=== PATIENT | female | born 1945 | race Caucasian/White ===

== ENCOUNTER → 2017-08-12 | Outpatient (CLI) | payer MEDICARE, BC ==
--- NOTE | 2017-08-12 15:33 | US ---
EXAMINATION TYPE: US kidneys/renal and bladder DATE OF EXAM: 08/12/2017 COMPARISON: NONE CLINICAL HISTORY: N13.39 HYDRONEPHROSIS. Lower abdominal pain EXAM MEASUREMENTS: Right Kidney: 10.0 x 4.1 x 4.7 cm Left Kidney: 10.4 x 4.2 x cm *Technical limitations due to large amount of overlying bowel content Right Kidney: cystic area upper pole = 2.1 x 2.0 x 2.2cm Left Kidney: cystic area upper pole = 1.4 x 1.1 x 1.9cm Bladder: not fully distended Bilateral Jets seen: no There is no evidence for hydronephrosis at this point in time. No nephrolithiasis is seen. The urina ry bladder is anechoic. Bilateral ureteral jets are seen. IMPRESSION: 1. No evidence of hydronephrosis or nephrolithiasis. 2. Bilateral renal cysts.
== END | disposition home or self-care (01) ==
LOC: RADUSWWP 14:29
PROVIDERS: ATTEND Internal Medicine
DX: N28.1 Cyst of kidney, acquired (principal)
CPT/HCPCS: 76770

== ENCOUNTER 2020-05-16 18:55 | Inpatient (IN) | payer MEDICARE, BC ==
[2020-05-16] MEDS ORDERED: SODIUM CHLORIDE 0.9% 1,000 ML IV STA (19:50)
[2020-05-16] MEDS ORDERED: ONDANSETRON 4 MG/2 ML VIAL IVP STA (19:50)
--- NOTE | 2020-05-16 20:02 | ED ---
General Adult HPI <Satish Marrero - Last Filed: 05/16/20 21:22> - General Source: patient, EMS, RN notes reviewed Mode of arrival: EMS <Sree Harris - Last Filed: 05/16/20 21:25> - General Chief complaint: Weakness Stated complaint: Nausea Time Seen by Provider: 05/16/20 19:24 - History of Present Illness Initial comments: 75-year-old female with a past medical history of Parkinson's, anxiety disorder, hypertension, presents to the emergency department for a chief complaint of weakness. According to patient's cousin patient has not been eating or drinking much. States that she saw her last week and she was complaining of nausea. Patient reports she has had this for a few weeks now. She denies vomiting. She does states she is not able to eat or drink much because of the nausea. Patient reports that over quarantine she became weaker and weaker as she was not doing her normal activities or seeing people. She denies chest pain or shortness of breath. Denies any recent falls. Denies any associated abdominal pain. Denies diarrhea, states she has not had a bowel movement in about a week.Patient has no other complaints at this time including shortness of breath, chest pain, headache, or visual changes. (Sree Harris) - Related Data Home Medications Medication Instructions Recorded Confirmed Omeprazole [PriLOSEC] 20 mg PO DAILY 10/28/15 05/16/20 Atenolol 25 mg PO DAILY 05/16/20 05/16/20 Carbidopa-Levodopa 25-100 mg 2 tab PO TID 05/16/20 05/16/20 [Sinemet 25-100 mg] L.acidoph,Paracasei, B.lactis 1 cap PO DAILY 05/16/20 05/16/20 [Probiotic] LORazepam [Ativan] 0.5 mg PO BID PRN 05/16/20 05/16/20 Ondansetron HCl [Zofran] 4 mg PO Q6H PRN 05/16/20 05/16/20 Triamterene-Hctz 37.5-25Mg 1 tab PO DAILY 05/16/20 05/16/20 [Maxzide 37.5-25] rOPINIRole HCL [Requip] 2 mg PO TID 05/16/20 05/16/20 Previous Rx's Medication Instructions Recorded Amantadine HCl [Symmetrel] 100 mg PO BID cap 11/01/15 Allergies Allergy/AdvReac Type Severity Reaction Status Date / Time No Known Allergies Allergy Verified 05/16/20 20:54 Review of Systems ROS Other: All systems not noted in ROS Statement are negative. <Satish Marrero - Last Filed: 05/16/20 21:22> ROS Other: All systems not noted in ROS Statement are negative. <Sree Harris - Last Filed: 05/16/20 21:25> ROS Statement: Those systems with pertinent positive or pertinent negative responses have been documented in the HPI. Past Medical History Past Medical History: GERD/Reflux, Hypertension Additional Past Medical History / Comment(s): Parkinson's disease, essential tremors, generalized anxiety disorder. History of Any Multi-Drug Resistant Organisms: None Reported Past Surgical History: Cholecystectomy Additional Past Surgical History / Comment(s): colonoscopy, tubes tied Past Anesthesia/Blood Transfusion Reactions: No Reported Reaction Past Psychological History: Anxiety, Depression, Panic Disorder Smoking Status: Former smoker Past Alcohol Use History: None Reported Past Drug Use History: None Reported - Past Family History Mother Additional Family Medical History / Comment(s): during rh incompatibility Father Family Medical History: CVA/TIA <Sree Harris - Last Filed: 05/16/20 21:25> General Exam General appearance: alert, in no apparent distress Head exam: Present: atraumatic, normocephalic, normal inspection Eye exam: Present: normal appearance, PERRL, EOMI. Absent: scleral icterus, conjunctival injection, periorbital swelling ENT exam: Present: normal exam, mucous membranes moist Neck exam: Present: normal inspection, full ROM. Absent: tenderness, meningismus, lymphadenopathy Respiratory exam: Present: normal lung sounds bilaterally. Absent: respiratory distress, wheezes, rales, rhonchi, stridor Cardiovascular Exam: Present: regular rate, normal rhythm, normal heart sounds. Absent: systolic murmur, diastolic murmur, rubs, gallop, clicks GI/Abdominal exam: Present: soft, normal bowel sounds. Absent: distended, tenderness, guarding, rebound, rigid Neurological exam: Present: alert <Sree Harris - Last Filed: 05/16/20 21:25> Course <Satish Marrero - Last Filed: 05/16/20 21:22> Vital Signs 05/16/20 19:23 Temperature 98 F Pulse Rate 54 L Respiratory 18 Rate Blood Pressure 147/80 O2 Sat by Pulse 3 L Oximetry - Reevaluation(s) Reevaluation #1: 05/16/20 21:22 PA supervision: I personally evaluate this patient the patient presents with decrease oral intake for past several weeks she was found have acute renal failure. Patient will be admitted in addition his hyponatremia and anorexia. I do agree with the assessment and plan (Satish Marrero) Medical Decision Making - Lab Data Result diagrams: 05/16/20 20:19 05/16/20 20:19 <Satish Marrero - Last Filed: 05/16/20 21:22> - Lab Data Result diagrams: 05/16/20 20:19 05/16/20 20:19 <Sree Harris - Last Filed: 05/16/20 21:25> - Medical Decision Making Vitals are stable. CBC is unremarkable CMP does show hyponatremia with associated acute renal failure. Creatinine 2.42. Patient was given a liter of fluids. Patient will be gently rehydrated given hyponatremia. She does not have any abdominal pain or abdominal tenderness. Case was discussed with Ryan from the , patient will be admitted and nephrology will be consulted. Urinalysis is pending. (Sree Harris) - Lab Data Lab Results 05/16/20 05/16/20 05/16/20 Range/Units 20:19 20:19 20:19 WBC 6.3 (3.8-10.6) k/uL RBC 4.81 (3.80-5.40) m/uL Hgb 14.1 (11.4-16.0) gm/dL Hct 40.8 (34.0-46.0) % MCV 84.8 (80.0-100.0) fL MCH 29.4 (25.0-35.0) pg MCHC 34.7 (31.0-37.0) g/dL RDW 12.7 (11.5-15.5) % Plt Count 228 (150-450) k/uL Neutrophils % 59 % Lymphocytes % 30 % Monocytes % 8 % Eosinophils % 1 % Basophils % 0 % Neutrophils # 3.7 (1.3-7.7) k/uL Lymphocytes # 1.9 (1.0-4.8) k/uL Monocytes # 0.5 (0-1.0) k/uL Eosinophils # 0.1 (0-0.7) k/uL Basophils # 0.0 (0-0.2) k/uL PT 10.9 (9.0-12.0) sec INR 1.1 (<1.2) APTT 24.8 (22.0-30.0) sec Sodium 126 L (137-145) mmol/L Potassium 3.4 L (3.5-5.1) mmol/L Chloride 90 L (98-107) mmol/L Carbon Dioxide 24 (22-30) mmol/L Anion Gap 12 mmol/L BUN 34 H (7-17) mg/dL Creatinine 2.42 H (0.52-1.04) mg/dL Est GFR (CKD-EPI)AfAm 22 (>60 ml/min/1.73 sqM) Est GFR (CKD-EPI)NonAf 19 (>60 ml/min/1.73 sqM) Glucose 96 (74-99) mg/dL Plasma Lactic Acid Jameson (0.7-2.0) mmol/L Calcium 9.1 (8.4-10.2) mg/dL Magnesium 2.1 (1.6-2.3) mg/dL Total Bilirubin 0.8 (0.2-1.3) mg/dL AST 22 (14-36) U/L ALT <6 (4-34) U/L Alkaline Phosphatase 75 (38-126) U/L Troponin I (0.000-0.034) ng/mL Total Protein 6.9 (6.3-8.2) g/dL Albumin 4.0 (3.5-5.0) g/dL Blood Type Blood Type Confirm Blood Type Recheck Bld Type Recheck Status Antibody Screen Spec Expiration Date 05/16/20 05/16/20 05/16/20 Range/Units 20:19 20:19 20:19 WBC (3.8-10.6) k/uL RBC (3.80-5.40) m/uL Hgb (11.4-16.0) gm/dL Hct (34.0-46.0) % MCV (80.0-100.0) fL MCH (25.0-35.0) pg MCHC (31.0-37.0) g/dL RDW (11.5-15.5) % Plt Count (150-450) k/uL Neutrophils % % Lymphocytes % % Monocytes % % Eosinophils % % Basophils % % Neutrophils # (1.3-7.7) k/uL Lymphocytes # (1.0-4.8) k/uL Monocytes # (0-1.0) k/uL Eosinophils # (0-0.7) k/uL Basophils # (0-0.2) k/uL PT (9.0-12.0) sec INR (<1.2) APTT (22.0-30.0) sec Sodium (137-145) mmol/L Potassium (3.5-5.1) mmol/L Chloride (98-107) mmol/L Carbon Dioxide (22-30) mmol/L Anion Gap mmol/L BUN (7-17) mg/dL Creatinine (0.52-1.04) mg/dL Est GFR (CKD-EPI)AfAm (>60 ml/min/1.73 sqM) Est GFR (CKD-EPI)NonAf (>60 ml/min/1.73 sqM) Glucose (74-99) mg/dL Plasma Lactic Acid Jameson 0.9 (0.7-2.0) mmol/L Calcium (8.4-10.2) mg/dL Magnesium (1.6-2.3) mg/dL Total Bilirubin (0.2-1.3) mg/dL AST (14-36) U/L ALT (4-34) U/L Alkaline Phosphatase (38-126) U/L Troponin I <0.012 (0.000-0.034) ng/mL Total Protein (6.3-8.2) g/dL Albumin (3.5-5.0) g/dL Blood Type A Positive Blood Type Confirm Blood Type Recheck No Previous Record Bld Type Recheck Status CABO Indicated Antibody Screen NEGATIVE Spec Expiration Date 05/19/2020 - 231805/16/20 Range/Units 20:19 WBC (3.8-10.6) k/uL RBC (3.80-5.40) m/uL Hgb (11.4-16.0) gm/dL Hct (34.0-46.0) % MCV (80.0-100.0) fL MCH (25.0-35.0) pg MCHC (31.0-37.0) g/dL RDW (11.5-15.5) % Plt Count (150-450) k/uL Neutrophils % % Lymphocytes % % Monocytes % % Eosinophils % % Basophils % % Neutrophils # (1.3-7.7) k/uL Lymphocytes # (1.0-4.8) k/uL Monocytes # (0-1.0) k/uL Eosinophils # (0-0.7) k/uL Basophils # (0-0.2) k/uL PT (9.0-12.0) sec INR (<1.2) APTT (22.0-30.0) sec Sodium (137-145) mmol/L Potassium (3.5-5.1) mmol/L Chloride (98-107) mmol/L Carbon Dioxide (22-30) mmol/L Anion Gap mmol/L BUN (7-17) mg/dL Creatinine (0.52-1.04) mg/dL Est GFR (CKD-EPI)AfAm (>60 ml/min/1.73 sqM) Est GFR (CKD-EPI)NonAf (>60 ml/min/1.73 sqM) Glucose (74-99) mg/dL Plasma Lactic Acid Jameson (0.7-2.0) mmol/L Calcium (8.4-10.2) mg/dL Magnesium (1.6-2.3) mg/dL Total Bilirubin (0.2-1.3) mg/dL AST (14-36) U/L ALT (4-34) U/L Alkaline Phosphatase (38-126) U/L Troponin I (0.000-0.034) ng/mL Total Protein (6.3-8.2) g/dL Albumin (3.5-5.0) g/dL Blood Type Blood Type Confirm A Positive Blood Type Recheck Bld Type Recheck Status Antibody Screen Spec Expiration Date Disposition <Satish Marrero - Last Filed: 05/16/20 21:22> Is patient prescribed a controlled substance at d/c from ED?: No Time of Disposition: 21:25 <Sree Harris - Last Filed: 05/16/20 21:25> Clinical Impression: Hyponatremia, MIKE (acute kidney injury) Disposition: ADMITTED IP TO THIS HOSP Condition: Fair Referrals: Enedina Arechiga MD [Primary Care Provider] - 1-2 days
[2020-05-16 20:29] LABS: Basophils % (A) 0 %; Eosinophils # (A) 0.1 k/uL (0-0.7); Eosinophils % (A) 1 %; HCT 40.8 % (34.0-46.0); HGB 14.1 gm/dL (11.4-16.0); Lymphocytes # (A) 1.9 k/uL (1.0-4.8); Lymphocytes % (A) 30 %; MCH 29.4 pg (25.0-35.0); MCHC 34.7 g/dL (31.0-37.0); MCV 84.8 fL (80.0-100.0); Mean Platelet Volume 7.4; Monocytes # (A) 0.5 k/uL (0-1.0); Monocytes % (A) 8 %; Neutrophils # (A) 3.7 k/uL (1.3-7.7); Neutrophils % (A) 59 %; Platelet Count 228 k/uL (150-450); RBC 4.81 m/uL (3.80-5.40); RDW 12.7 % (11.5-15.5); WBC 6.3 k/uL (3.8-10.6)
[2020-05-16 20:39] LABS: ALT <6 U/L (4-34); AST 22 U/L (14-36); African American GFR (CKD) 22 (>60 ml/min/1.73 sqM); Alkaline Phosphatase 75 U/L (38-126); Anion Gap 12 mmol/L; Blood Urea Nitrogen 34 mg/dL (7-17); Calcium 9.1 mg/dL (8.4-10.2); Carbon Dioxide 24 mmol/L (22-30); Chloride 90 mmol/L (98-107); Glucose 96 mg/dL (74-99); Magnesium 2.1 mg/dL (1.6-2.3); Non-African American GFR(CKD) 19 (>60 ml/min/1.73 sqM); Potassium 3.4 mmol/L (3.5-5.1); Sodium 126 mmol/L (137-145); Total Bilirubin 0.8 mg/dL (0.2-1.3); Total Protein 6.9 g/dL (6.3-8.2)
[2020-05-16 20:42] LABS: INR 1.1 (<1.2); Partial Thromboplastin Time 24.8 sec (22.0-30.0); Prothrombin Time 10.9 sec (9.0-12.0)
--- NOTE | 2020-05-16 20:56 | XR ---
EXAMINATION TYPE: XR chest 2V DATE OF EXAM: 05/16/2020 COMPARISON: 10/30/2015 HISTORY: Short of breath TECHNIQUE: FINDINGS: There is no heart failure nor confluent pneumonic infiltrate. Costophrenic angles are clear . There are chest leads. IMPRESSION: No active cardiopulmonary disease. No change compared to old exam
[2020-05-16] MEDS ORDERED: NALOXONE 0.4 MG/ML 1 ML VIAL IV PRN (21:25)
[2020-05-16] MEDS ORDERED: ONDANSETRON 4 MG/2 ML VIAL IVP PRN (21:25)
[2020-05-16 21:47] LABS: Appearance,Urine Cloudy (Clear); Bacteria,Urine Many /hpf; Bilirubin,Urine Negative (Negative); Blood,Urine Negative (Negative); Color,Urine Yellow; Glucose,Urine (UA) Negative (Negative); Hyaline Casts,Urine 11 /lpf (0-2); Ketones,Urine Negative (Negative); Leukocyte Esterase,Urine Small (Negative); Mucus,Urine Rare /hpf; Nitrite,Urine Negative (Negative); PH, Urine 5.5 (5.0-8.0); Protein,Urine Negative (Negative); RBC,Urine 1 /hpf (0-5); Squamous Epithelial Cell,Urine 5 /hpf (0-4); Urobilinogen,Urine <2.0 mg/dL (<2.0); WBC,Urine 3 /hpf (0-5)
[2020-05-17] MEDS: SODIUM CHLORIDE 0.9% 1,000 ML IV SCH ×2 (00:45→12:29)
--- NOTE | 2020-05-17 09:16 | P.NPCON ---
History of Present Illness - Reason for Consult acute renal failure - History of Present Illness Reason for consultation: Acute kidney injury History of present illness: Patient is a 75-year-old female seen in consultation for acute kidney injury. Creatinine was 2.420 admission. Creatinine June 2018 was 0.9.patient presented to the hospital with generalized weakness. Patient states she's been nauseated which has been progressively getting worse over the last few days. Her oral intake is poor. She denies vomiting or diarrhea. Denies use of nonsteroidals. Denies personal or family history of kidney disease. No hematuria or dysuria. No syncopal episodes. No abdominal pain. She is currently maintained on IV fluids. hemodynamically stable. patient states her legs due to distal. She was taking Maxide outpatient. No other complaints at this time. No fever or chills. No cough. no proteinuria on UA. No evidence of fluid overload on chest x-ray. Vital signs are stable. General: The patient appeared well nourished and normally developed. HEENT: Head exam is unremarkable. Neck is without jugular venous distension. LUNGS: Lungs are clear to auscultation and percussion. Breath sounds decreased. HEART: Rate and Rhythm are regular. ABDOMEN: soft, nontender. No distention noted. EXTREMITITES: No clubbing, cyanosis, or edema. Past Medical History Past Medical History: GERD/Reflux, Hypertension Additional Past Medical History / Comment(s): Parkinson's disease, essential tremors, generalized anxiety disorder. History of Any Multi-Drug Resistant Organisms: None Reported Past Surgical History: Cholecystectomy Additional Past Surgical History / Comment(s): colonoscopy, tubes tied Past Anesthesia/Blood Transfusion Reactions: No Reported Reaction Past Psychological History: Anxiety, Depression, Panic Disorder Smoking Status: Former smoker Past Alcohol Use History: None Reported Past Drug Use History: None Reported - Past Family History Mother Additional Family Medical History / Comment(s): during rh incompatibility Father Family Medical History: CVA/TIA Medications and Allergies Home Medications Medication Instructions Recorded Confirmed Type RX: Omeprazole [PriLOSEC] 20 mg PO DAILY 10/28/15 05/16/20 History RX: Amantadine HCl [Symmetrel] 100 mg PO BID cap 11/01/15 05/16/20 Rx L.acidoph,Paracasei, B.lactis 1 cap PO DAILY 05/16/20 05/16/20 History [Probiotic] LORazepam [Ativan] 0.5 mg PO BID PRN 05/16/20 05/16/20 History Ondansetron HCl [Zofran] 4 mg PO Q6H PRN 05/16/20 05/16/20 History RX: Atenolol 25 mg PO DAILY 05/16/20 05/16/20 History RX: Carbidopa-Levodopa 25-100 mg 2 tab PO TID 05/16/20 05/16/20 History [Sinemet 25-100 mg] Triamterene-Hctz 37.5-25Mg 1 tab PO DAILY 05/16/20 05/16/20 History [Maxzide 37.5-25] rOPINIRole HCL [Requip] 2 mg PO TID 05/16/20 05/16/20 History Allergies Allergy/AdvReac Type Severity Reaction Status Date / Time No Known Allergies Allergy Verified 05/16/20 20:54 Physical Exam Vitals: Vital Signs Temp Pulse Pulse Resp BP BP Pulse Ox 05/17/20 08:14 98 F 52 L 18 127/68 05/17/20 04:39 98.2 F 54 L 19 130/78 100 05/17/20 01:30 55 L 18 133/70 97 05/16/20 22:00 54 L 16 142/79 97 05/16/20 19:23 98 F 54 L 18 147/80 3 L Intake and Output 05/16/20 05/17/20 05/17/20 22:59 06:59 14:59 Other: Weight 72.575 kg Results - Lab Results Most recent lab results Calcium 9.1 mg/dL (8.4-10.2) 05/16/20 20:19 Magnesium 2.1 mg/dL (1.6-2.3) 05/16/20 20:19 05/16/20 20:19 05/16/20 20:19 Assessment and Plan Plan: assessment: 1. Acute kidney injury mostly prerenal secondary to intravascular volume depletion from diuretics and poor intake. Creatinine 2.420 admission. UA benign. 2. Hypovolemic hyponatremia. Expect improvement with IV fluids. 3. Hypokalemia secondary to diuretics and poor intake. Magnesium normal. Plan: Maintain normal saline at 75 mL an hour. Check BMP now. May require potassium replacement if still low. Avoid nephrotoxins. Hold diuretics. Thank you for the consultation. I will continue to follow patient with you during her hospital stay.
[2020-05-17 10:32] LABS: Calcium 8.5 mg/dL (8.4-10.2); Potassium 3.3 mmol/L (3.5-5.1)
[2020-05-17] MEDS ORDERED: Potassium Replacement Protocol 1 EACH MISC MISCELLANE PRN (12:55)
[2020-05-17] MEDS: POTASSIUM CHLORIDE ER 20 MEQ TAB.ER PO SCH (13:14)
[2020-05-17] MEDS ORDERED: ACETAMINOPHEN TAB 500 MG TAB PO PRN (14:01)
[2020-05-17] MEDS ORDERED: HYDROmorphone 0.5 MG/0.5 ML SYRINGE IVP PRN (14:01)
[2020-05-17] MEDS ORDERED: HYDROcodone/APAP 5-325MG 1 EACH TAB PO PRN (14:01)
[2020-05-17] MEDS: PANTOPRAZOLE 40 MG/10 ML VIAL IVP SCH ×2 (14:45→21:05)
[2020-05-17] MEDS: HEPARIN SODIUM,PORCINE 5,000 UNIT/ML 1 ML VIAL SQ SCH ×2 (14:45→21:05)
[2020-05-17] MEDS ORDERED: PROCHLORPERAZINE 10 MG TAB PO PRN (15:22)
--- NOTE | 2020-05-17 15:45 | HP ---
HISTORY AND PHYSICAL CHIEF COMPLAINTS: Nausea and weakness. HISTORY OF PRESENT ILLNESS: This 75-year-old woman with a past medical history of multiple medical problems, including asthma, hypertension, history of Parkinson's disease, history of gastroparesis, anxiety, depression, being followed by Dr. Arechiga in the outpatient setting, was complaining of nausea. The patient was not taking any fluids for the last several days. Patient complains of weakness. The patient came to [facility] and was admitted for further evaluation and treatment. The patient was found to have acute renal failure with a creatinine of 2.42 and sodium was 126. There is no history of any fever, rigor or chills. No history of headache, loss of consciousness, seizures at this time. PAST MEDICAL HISTORY: History of asthma, GERD, hypertension, history of Parkinson's, history of sleep apnea, history of anxiety, depression panic disorder. HOME MEDICATIONS: 1. Probiotic 1 p.o. daily. 2. Requip 2 mg p.o. daily. 3. Maxzide. 4. Zofran. 5. Ativan. 6. Prilosec. 7. Sinemet. 8. Atenolol. 9. Amantadine. Doses are reviewed. ALLERGIES: NONE. FAMILY HISTORY: History of CVA, TIA in the family. SOCIAL HISTORY: Previous history of smoking. No current smoking or alcohol intake. REVIEW OF SYSTEMS: ENT: No diminished hearing. No diminished vision. CARDIOVASCULAR SYSTEM: No angina, palpitations. RESPIRATORY SYSTEM: As mentioned earlier. GI: As mentioned earlier. : As mentioned earlier. NERVOUS SYSTEM: No numbness, weakness. ALLERGY/IMMUNOLOGY: No asthma, hayfever. MUSCULOSKELETAL: As mentioned earlier. HEMATOLOGY/ONCOLOGY: No history of anemia. ENDOCRINE: No history of diabetes, hypothyroidism. CONSTITUTIONAL: As mentioned earlier. DERMATOLOGY: Negative. RHEUMATOLOGY: Negative. PSYCHIATRY: As mentioned earlier. PHYSICAL EXAMINATION: Patient alert and oriented x3. Pulse 52, blood pressure 127/68, respiration 18, temperature 98 degrees, pulse ox 98% on room air. HEENT: Conjunctivae normal. Oral mucosa dry. NECK: No jugular venous distention. No carotid bruit. No lymph node enlargement. CARDIOVASCULAR SYSTEM: S1, S2 muffled. No S3. No S4. RESPIRATORY SYSTEM: Breath sounds diminished at the bases. No rhonchi. No crackles. ABDOMEN: Soft. Mild diffuse discomfort. No guarding. No rigidity. No mass palpable. LEGS: No edema. No swelling. NERVOUS SYSTEM: No focal deficit. LABS: WBC 6.3, sodium 126, potassium 3.3, creatinine 2.4. Other labs are noted. UA noted; possible UTI. ASSESSMENT: 1. Acute renal failure with severe dehydration with prerenal acute renal failure and acute tubular necrosis. 2. Hypokalemia. 3. Hyponatremia. 4. Incessant nausea as well as gastroparesis, acute exacerbation. 5. Possible acute urinary tract infection, present on admission. 6. History of Parkinson's. 7. Gait dysfunction. 8. Asthma. 9. Gastroesophageal reflux disease. 10.Hypertension. 11.History of sleep apnea. 12.Essential tremors. 13.History of degenerative joint disease. 14.History of bronchitis. 15.Chronic low back pain. 16.History of restless legs syndrome. 17.History of previous serotonin rigidity. 18.History of cholecystectomy. 19.Colonoscopy. 20.Anxiety, depression, panic attacks. 21.Gait dysfunction. 22.FULL CODE. 23.Remote history of nicotine dependence. RECOMMENDATIONS AND DISCUSSION: In his 75-year-old woman who presented with multiple medical problems, we will monitor the patient closely, continue the current medications, resume the home medications. Symptomatic treatment. Otherwise, IV fluids. Will monitor the potassium closely. Otherwise, repeat electrolytes and DVT prophylaxis. Symptomatic treatment. Prognosis guarded because of multiple complex medical issues. Discussed with the patient and family, who understand and agree. Further recommendations to follow. BRUNA / JOSÉ LUISN: [id number] /
[2020-05-17] MEDS: CARBIDOPA-LEVODOPA 25-100 MG 1 EACH TAB PO SCH ×2 (15:49→21:05)
[2020-05-17] MEDS ORDERED: MAGNESIUM CITRATE 296 ML BOTTLE PO ONE (15:57)
[2020-05-17] MEDS: ONDANSETRON 4 MG/2 ML VIAL IVP SCH ×2 (17:29→23:12)
[2020-05-17 20:04] LABS: Potassium 4.1 mmol/L (3.5-5.1)
[2020-05-17] MEDS: AMANTADINE HCL 100 MG CAP PO SCH (21:06)
[2020-05-18] MEDS: ONDANSETRON 4 MG/2 ML VIAL IVP SCH ×4 (05:37→23:03)
[2020-05-18] MEDS: SODIUM CHLORIDE 0.9% 1,000 ML IV SCH ×2 (05:37→12:50)
--- NOTE | 2020-05-18 06:47 | CONS ---
CONSULTATION DATE OF SERVICE: 05/17/2020 REQUESTING PHYSICIAN: Dr. Dyer. REASON FOR CONSULTATION: Chronic persistent nausea and weakness. HISTORY OF PRESENT ILLNESS: The patient is a 75-year-old pleasant white female with history of Parkinson disease, hypertension, asthma, anxiety, depression who was admitted to hospital because of severe persistent nausea for the last one week duration. Her oral intake has significantly decreased because of the persistent nausea and hence was sent to the emergency room at [facility] and subsequently admitted for further evaluation. At the time of admission to the hospital was noted to have acute kidney injury with elevated BUN and creatinine at 45 and 2.42. Hence, we are consulted for evaluation of persistent nausea. The patient stated she was diagnosed with idiopathic gastroparesis about 10 years ago. She was investigated extensively at that time and was treated with domperidone. She did well for three years after which the medication was discontinued and she did say that she was asymptomatic all these years. Lately has been having intermittent episodes of nausea. She reports no gross gastric pain. She reports no emesis. She lost about 15 pounds since the onset of these symptoms. PAST MEDICAL HISTORY: Significant for GERD, hypertension, history of Parkinson disease, sleep apnea, anxiety, depression, gastroesophageal reflux disease. MEDICATIONS: At home, probiotic, Requip, Maxzide, Zofran, Ativan, Prilosec, Sinemet, atenolol, amantadine. ALLERGIES: None. SOCIAL HISTORY: No smoking, no alcohol use. FAMILY HISTORY: Mother had CVA. Father had hypertension. REVIEW OF SYSTEMS: CARDIOPULMONARY: No chest pain. GI: As mentioned above. : No dysuria or hematuria. MUSCULOSKELETAL: Unremarkable. SKIN: Unremarkable. ENDOCRINE: Unremarkable. PSYCHIATRY: History of anxiety, depression. NEUROLOGY: Unremarkable other than history of Parkinson disease. CONSTITUTIONAL: Weight loss of 10 pounds. No fever, chills, night sweats. PHYSICAL EXAMINATION: She appears comfortable. No apparent distress. VITAL SIGNS: Stable. Blood pressure is 112/86, pulse rate 57, temperature 98. HEENT examination unremarkable. Conjunctivae pink, sclerae anicteric. Oral cavity no lesions. NECK: No JVD or lymph node enlargement. CHEST: Clear to auscultation. HEART: Regular rate and rhythm. ABDOMEN: Soft. There was very minimal tenderness in the epigastric area. Rest of the abdomen was benign. Bowel sounds are positive, no organomegaly. EXTREMITIES: No pedal edema. SKIN: No rashes. NEUROLOGIC: Alert and oriented x3. No focal deficits. LABS: WBC 6.3, hemoglobin 14.1, platelets normal. Sodium 126, potassium 3.4, chloride 90, CO2 is 24, BUN 34, creatinine 2.42. IMPRESSION: 1. Chronic persistent nausea for the last 10 days duration. The patient has prior history of idiopathic gastroparesis diagnosed 10 years ago, was treated with antiemetics as well as domperidone at that time and she did well all these years. In fact, she has been off the antiemetics for almost 7 years. Recently has been having worsening nausea to an extent that she has significantly decreased appetite, admitted to the hospital with acute kidney injury from prerenal azotemia. Presently receiving Zofran and is feeling somewhat better. 2. Acute kidney injury. Nephrology following the patient closely. 3. History of Parkinson's disease. 4. History of idiopathic gastroparesis diagnosed 10 years ago. RECOMMENDATIONS: 1. We will continue with symptomatic and supportive care. 2. Antiemetics as needed, Zofran. 3. Protonix 40 mg twice daily. 4. Advance diet as tolerated. 5. No plans for any endoscopic intervention. 6. Obtain gastric emptying scan on Wednesday if the patient is still in the hospital. We will follow with you closely. Thank you for this consultation MMODL / IJN: [id number] /
[2020-05-18 07:11] LABS: Basophils % (A) 0 %; Eosinophils # (A) 0.1 k/uL (0-0.7); Eosinophils % (A) 2 %; HCT 37.3 % (34.0-46.0); HGB 12.5 gm/dL (11.4-16.0); Lymphocytes # (A) 1.9 k/uL (1.0-4.8); Lymphocytes % (A) 44 %; MCH 29.4 pg (25.0-35.0); MCHC 33.6 g/dL (31.0-37.0); MCV 87.6 fL (80.0-100.0); Mean Platelet Volume 7.5; Monocytes # (A) 0.3 k/uL (0-1.0); Monocytes % (A) 7 %; Neutrophils % (A) 45 %; Platelet Count 226 k/uL (150-450); RBC 4.26 m/uL (3.80-5.40); RDW 12.9 % (11.5-15.5); WBC 4.5 k/uL (3.8-10.6)
[2020-05-18 07:27] LABS: Calcium 8.3 mg/dL (8.4-10.2); Magnesium 2.4 mg/dL (1.6-2.3); Potassium 3.7 mmol/L (3.5-5.1)
[2020-05-18] MEDS: LACTOBACILLUS ACIDOPH & BULGAR 1 EACH PACKET PO SCH (08:36)
[2020-05-18] MEDS: ATENOLOL 25 MG TAB PO SCH (08:36)
[2020-05-18] MEDS: CARBIDOPA-LEVODOPA 25-100 MG 1 EACH TAB PO SCH ×3 (08:36→20:38)
[2020-05-18] MEDS: HEPARIN SODIUM,PORCINE 5,000 UNIT/ML 1 ML VIAL SQ SCH ×2 (08:36→20:39)
[2020-05-18] MEDS: PANTOPRAZOLE 40 MG/10 ML VIAL IVP SCH ×2 (08:36→20:39)
[2020-05-18] MEDS: AMANTADINE HCL 100 MG CAP PO SCH ×2 (08:36→21:11)
[2020-05-18] MEDS: LORazepam 0.5 MG TAB PO PRN (09:51)
--- NOTE | 2020-05-18 09:53 | P.PN ---
Subjective Patient is seen in follow-up for acute kidney injury. Renal function continues to improve. Oral intake improving. No vomiting or diarrhea. Patient states Zofran helping. Vital signs are stable. General: The patient appeared well nourished and normally developed. HEENT: Head exam is unremarkable. Neck is without jugular venous distension. LUNGS: Lungs are clear to auscultation and percussion. Breath sounds decreased. HEART: Rate and Rhythm are regular. ABDOMEN: Soft, nontender. EXTREMITIES: No clubbing, cyanosis, or edema. Objective - Vital Signs Vital signs: Vital Signs Temp 97.8 F 05/18/20 02:15 Pulse 55 L 05/18/20 02:15 Resp 19 05/17/20 18:55 BP 105/70 05/18/20 02:15 Pulse Ox 99 05/18/20 02:15 Intake & Output 05/17/20 05/18/20 05/18/20 18:59 06:59 18:59 Intake Total 1300 Balance 1300 Weight 72.575 kg Intake: Intake, IV Titration 1300 Amount Sodium Chloride 0.9% 1, 300 000 ml @ 75 mls/hr IV . [id number] ED Rx#:[id number] Sodium Chloride 0.9% 1, 1000 000 ml @ 999 mls/hr IV . Q1H1M [facility] Rx#:[id number] Other: # Voids 1 1 # Bowel Movements 1 1 - Labs CBC & Chem 7: 05/18/20 06:35 05/18/20 06:35 Labs: Abnormal Lab Results - Last 24 Hours (Table) 05/17/20 05/17/20 05/18/20 Range/Units 09:51 18:02 06:35 Sodium 133 L 134 L 136 L (137-145) mmol/L Potassium 3.3 L (3.5-5.1) mmol/L Carbon Dioxide 21 L (22-30) mmol/L BUN 24 H 19 H (7-17) mg/dL Creatinine 1.73 H 1.37 H (0.52-1.04) mg/dL Calcium 8.3 L (8.4-10.2) mg/dL Magnesium 2.4 H (1.6-2.3) mg/dL Assessment and Plan Plan: assessment: 1. Acute kidney injury mostly prerenal secondary to intravascular volume deple tion from diuretics and poor intake. Creatinine 2.42 on admission - 1.37 today. UA benign. 2. Hypovolemic hyponatremia. Improved with IV fluids. 3. Hypokalemia secondary to diuretics and poor intake. Magnesium normal. Plan: Decrease normal saline to 50 mL an hour. Encouraged oral intake. Avoid nephrotoxins. Hold diuretics.
--- NOTE | 2020-05-18 13:20 | PN ---
PROGRESS NOTE DATE OF SERVICE: 05/18/2020 The patient is a 75-year-old pleasant white female admitted to hospital with severe nausea for the last one week duration. She has significantly decreased intake and at the time of admission to the hospital had acute kidney injury with elevated BUN and creatinine. She is feeling much better today. She is receiving Zofran around-the- clock. Her oral intake has improved. She denies any abdominal pain. PHYSICAL EXAMINATION: Appears comfortable, no apparent distress. VITAL SIGNS: Stable. Blood pressure is 112/44, pulse rate 62, temperature 98.3. HEENT examination unremarkable. Conjunctivae pink, sclerae anicteric. Oral cavity no lesions. NECK: No JVD or lymph node enlargement. CHEST: Clear to auscultation. HEART: Regular rate and rhythm. ABDOMEN: Soft, nontender, nondistended. Bowel sounds are positive. EXTREMITIES: No pedal edema. SKIN: No rashes. NEUROLOGIC: Alert and oriented x3. No focal deficits. LABS: WBC 4.5, hemoglobin 12.5, platelets normal. Basic metabolic panel within normal limits. BUN and creatinine have significantly improved to 19 and 1.37. IMPRESSION: 1. Chronic persistent nausea of one week duration. The patient has history of idiopathic gastroparesis diagnosed about 10 years ago. She is presently receiving Zofran and Protonix as well as Compazine as needed and doing much better. 2. Acute kidney injury secondary to prerenal azotemia, has improved. RECOMMENDATION: 1. Continue with Zofran and Compazine as needed. 2. Protonix 40 mg twice daily. 3. Advance diet as tolerated. We will follow with you closely. Thank you for this consultation. MMODL / IJN: [id number] /
[2020-05-18 16:10] VITALS: BMI 31.8
--- NOTE | 2020-05-18 19:41 | PN ---
PROGRESS NOTE Dr toussaint dictating the progress are Orion graham #[id number]. DATE OF SERVICE: 05/18/2020 This 75-year-old woman was admitted with acute renal failure is being closely monitored. No chest pain. No palpitations. No fever. PHYSICAL EXAMINATION: Alert and oriented x2. Pulse is 53, blood pressure 127/78, respirations 16, temperature 98.2, pulse ox 97 percent room air. HEENT: Conjunctivae normal. NECK: No JVD. CARDIOVASCULAR: S1, S2 muffled. RESPIRATORY: Breath sounds diminished in the bases. No rhonchi. No crackles. ABDOMEN is soft nontender. LEGS are no edema. NERVOUS SYSTEM: No focal deficits. LABORATORY DATA: CBC within normal limits. Sodium 136, creatinine 1.37. UA noted. ASSESSMENT: 1. Acute renal failure with severe dehydration with prerenal acute renal failure and acute tubular necrosis. 2. Hypokalemia. 3. Hyponatremia. 4. Incessant nausea and vomiting as well as gastroparesis acute exacerbation. 5. Possible acute urinary tract infection present on admission. 6. History of Parkinson's. 7. Gait dysfunction. 8. Asthma. 9. Gastroesophageal reflux disease. 10.Hypertension. 11.History of sleep apnea. 12.History of essential tremors. 13.History of degenerative joint disease. 14.History of bronchitis. 15.History of chronic low back pain. 16.History of restless legs syndrome. 17.History of previous serotonin rigidity. 18.History of cholecystectomy. 19.History of colonoscopy. 20.Anxiety, depression, panic attack. 21.Gait dysfunction. 22.Remote history of nicotine dependence. 23.FULL CODE. RECOMMENDATIONS AND DISCUSSION: Recommend to continue current medical management, symptomatic treatment. Repeat labs. PT, OT evaluation. Dr. Schaefer has seen the patient as well as nephrology has also seen the patient. Dr. Schaefer recommended Zofran. Guarded prognosis. Further recommendations to follow. MMODL / IJN: [id number] /
[2020-05-18] MEDS: ALPRAZolam 0.25 MG TAB PO PRN (20:38)
[2020-05-19] MEDS: ONDANSETRON 4 MG/2 ML VIAL IVP SCH ×3 (05:06→17:08)
[2020-05-19 07:26] LABS: Calcium 8.3 mg/dL (8.4-10.2); Magnesium 2.1 mg/dL (1.6-2.3); Potassium 3.4 mmol/L (3.5-5.1)
[2020-05-19] MEDS: LORazepam 0.5 MG TAB PO PRN ×2 (08:45→20:58)
[2020-05-19] MEDS: CARBIDOPA-LEVODOPA 25-100 MG 1 EACH TAB PO SCH ×3 (09:01→20:52)
[2020-05-19] MEDS: PANTOPRAZOLE 40 MG/10 ML VIAL IVP SCH ×2 (09:01→09:03)
[2020-05-19] MEDS: ATENOLOL 25 MG TAB PO SCH (09:01)
[2020-05-19] MEDS: LACTOBACILLUS ACIDOPH & BULGAR 1 EACH PACKET PO SCH (09:01)
[2020-05-19] MEDS: HEPARIN SODIUM,PORCINE 5,000 UNIT/ML 1 ML VIAL SQ SCH ×2 (09:01→20:52)
[2020-05-19] MEDS ORDERED: POTASSIUM CHLORIDE ER 20 MEQ TAB.ER PO STA (09:05)
--- NOTE | 2020-05-19 09:05 | P.PN ---
Subjective Patient is seen in follow-up for acute kidney injury. Renal function continues to improve. Oral intake improving. No vomiting or diarrhea. Patient states Zofran helping but continues to feel nauseous. Vital signs are stable. General: The patient appeared well nourished and normally developed. HEENT: Head exam is unremarkable. Neck is without jugular venous distension. LUNGS: Lungs are clear to auscultation and percussion. Breath sounds decreased. HEART: Rate and Rhythm are regular. ABDOMEN: Soft, nontender. EXTREMITIES: No clubbing, cyanosis, or edema. Objective - Vital Signs Vital signs: Vital Signs Temp 98.2 F 05/19/20 08:08 Pulse 61 05/19/20 08:08 Resp 16 05/19/20 08:08 BP 144/81 05/19/20 08:08 Pulse Ox 95 05/19/20 08:08 Intake & Output 05/18/20 05/19/20 05/19/20 18:59 06:59 18:59 Intake Total 150 Balance 150 Weight 81.647 kg Intake: Intake, IV Titration 150 Amount Sodium Chloride 0.9% 1, 150 000 ml @ 50 mls/hr IV . Q20H [facility] Rx#:[id number] Other: Voiding Method Toilet # Voids 2 2 # Bowel Movements 1 - Labs CBC & Chem 7: 05/18/20 06:35 05/19/20 06:44 Labs: Abnormal Lab Results - Last 24 Hours (Table) 05/19/20 Range/Units 06:44 Sodium 135 L (137-145) mmol/L Potassium 3.4 L (3.5-5.1) mmol/L Creatinine 1.23 H (0.52-1.04) mg/dL Calcium 8.3 L (8.4-10.2) mg/dL Assessment and Plan Plan: assessment: 1. Acute kidney injury mostly prerenal secondary to intravascular volume depletion from diuretics and poor intake. Creatinine 2.42 on admission - 1. To 3 today. UA benign. 2. Hypovolemic hyponatremia. Improved with IV fluids. 3. Hypokalemia secondary to diuretics and poor intake. Magnesium normal. 4. Nausea with history of gastroparesis. Scheduled for EGD tomorrow. Plan: Maintain normal saline at 50 mL an hour. Encouraged oral intake. Avoid nephrotoxins. Hold diuretics. Replace potassium. 40 mg once today.
[2020-05-19] MEDS: AMANTADINE HCL 100 MG CAP PO SCH ×2 (09:32→20:51)
[2020-05-19] MEDS: PANTOPRAZOLE 40 MG TABLET PO SCH ×2 (09:32→17:09)
[2020-05-19] MEDS: SODIUM CHLORIDE 0.9% 1,000 ML IV SCH (09:44)
--- NOTE | 2020-05-19 13:42 | PN ---
PROGRESS NOTE DATE OF SERVICE: 05/19/2020 Patient is a 75-year-old pleasant white female admitted to the hospital with severe persistent nausea but no emesis or abdominal pain. She was doing better yesterday but this morning continues to complain of worsening nausea. She reports no emesis. She denies any abdominal pain. She received Compazine as well as Zofran and remains on Protonix. Able to tolerate diet, but the intake has been decreased. PHYSICAL EXAMINATION: Appears comfortable, no apparent distress. Vital signs stable. Blood pressure is 144/81, pulse is 61, temperature 98.2. HEENT examination unremarkable. Conjunctivae pink, sclerae anicteric. Oral cavity no lesions. NECK: No JVD or lymph node enlargement. CHEST: Clear to auscultation. HEART: Regular rate and rhythm. ABDOMEN: Soft. Bowel sounds are positive. EXTREMITIES: No pedal edema. SKIN: No rashes. NEUROLOGIC: Alert and oriented x3. No focal deficits. LABS: Done today show sodium 135, potassium 3.4, chloride 104, CO2 27. BUN and creatinine are within normal limits. IMPRESSION: 1. Chronic persistent nausea for the last one week duration. Remains on Zofran and Compazine with some improvement in her symptoms. 2. History of idiopathic gastric paresis diagnosed 10 years ago. 3. Parkinson disease. 4. Acute kidney injury with elevated BUN and creatinine, which are gradually improving. RECOMMENDATIONS: I had a lengthy discussion with the patient regarding management of her persistent nausea. Since her symptoms have gotten worse today, I recommended we proceed with an upper endoscopy to rule out any upper GI pathology and if this is negative, we can consider a gastric emptying scan during this hospitalization. In the meantime, continue with Zofran and Compazine, small frequent means and we will follow with you closely. Thank you for this consultation. MMODL / IJN: [id number] /
[2020-05-19] MEDS: ALPRAZolam 0.25 MG TAB PO PRN (17:13)
--- NOTE | 2020-05-19 17:22 | PN ---
PROGRESS NOTE DATE OF SERVICE: 05/19/2020 This 72-year-old woman was admitted with acute renal failure with dehydration is on IV fluids. Patient is feeling slightly better. Patient was seen by nephrology and as well as Gastroenterology, Dr. Schaefer is planning upper endoscopy and if it is negative, gastric emptying study was considered. No chest pain. No palpitations. No fever. PHYSICAL EXAMINATION: Alert and oriented times three. Pulse 60. Blood pressure 160/90, respiration 18, temperature 98.2, pulse ox 97% on room air. HEENT: Conjunctivae normal. NECK: No JVD. CARDIOVASCULAR: S1, S2 muffled. RESPIRATORY: Breath sounds diminished in the bases. A few scattered rhonchi and crackles. ABDOMEN is soft, nontender. LEGS are no edema. No swelling. NERVOUS SYSTEM: No focal deficits. LABORATORY DATA: CBC within normal limits. Sodium 132. Potassium 3.4, creatinine 1.23. ASSESSMENT: 1. Acute renal failure with severe dehydration, prerenal acute tubular necrosis and acute renal failure. 2. Incessant nausea and vomiting, possibly gastroparesis, acute exacerbation. 3. Possible acute urinary tract infection present on admission. 4. Hypokalemia. 5. Hyponatremia. 6. Gait dysfunction. 7. Asthma, chronic, intermittent. 8. Gastroesophageal reflux disease. 9. Hypertension. 10.History of sleep apnea. 11.History of essential tremors. 12.History of degenerative joint disease. 13.History of bronchitis. 14.History of chronic low back pain. 15.History of restless legs syndrome. 16.History of previous serotonin rigidity. 17.History of cholecystectomy. 18.History of colonoscopy. 19.History of anxiety, depression, panic attacks. 20.Gait dysfunction. 21.Remote history of nicotine dependence. 22.FULL CODE. RECOMMENDATIONS AND DISCUSSION: Recommend to continue current medications, monitoring and symptomatic treatment. Otherwise at this time I recommend continued IV hydration. Endoscopy planned by Dr. Schaefer. I would also recommend potassium supplementation. Prognosis guarded because of multiple complex medical issues. Further recommendations to follow. MMODL / IJN: [id number] /
[2020-05-20] MEDS: ONDANSETRON 4 MG/2 ML VIAL IVP SCH ×6 (01:17→23:41)
[2020-05-20] MEDS: SODIUM CHLORIDE 0.9% 1,000 ML IV SCH (05:46)
[2020-05-20] MEDS: LACTOBACILLUS ACIDOPH & BULGAR 1 EACH PACKET PO SCH (06:55)
[2020-05-20] MEDS: HEPARIN SODIUM,PORCINE 5,000 UNIT/ML 1 ML VIAL SQ SCH ×2 (06:55→21:15)
[2020-05-20] MEDS: PANTOPRAZOLE 40 MG TABLET PO SCH ×2 (06:55→15:56)
[2020-05-20 08:09] LABS: Calcium 8.1 mg/dL (8.4-10.2); Magnesium 1.7 mg/dL (1.6-2.3); Potassium 4.1 mmol/L (3.5-5.1)
[2020-05-20] MEDS: ATENOLOL 25 MG TAB PO SCH (08:23)
[2020-05-20] MEDS: AMANTADINE HCL 100 MG CAP PO SCH ×2 (08:23→21:33)
[2020-05-20] MEDS: CARBIDOPA-LEVODOPA 25-100 MG 1 EACH TAB PO SCH ×3 (08:23→21:15)
[2020-05-20] MEDS ORDERED: IV FLUID CONTINUATION 1,000 ML IV ONE ×2 (12:13)
[2020-05-20] MEDS ORDERED: LIDOCAINE 1% INJ 10MG/ML (20 ML MDV) ONE (12:14)
[2020-05-20] MEDS ORDERED: PROPOFOL 10 MG/ML 20 ML VIAL IV ONE (12:14)
--- NOTE | 2020-05-20 12:36 | P.PCN ---
Date of Procedure: 05/20/20 Description of Procedure: BRIEF HISTORY: Patient is a 75-year-old female presenting to the hospital with severe persistent nausea with no emesis or abdominal pain. Patient continues to report worsening nausea with no episodes of emesis. Patient has been receiving Compazine as well as Zofran and remains on PPI therapy with Protonix. PROCEDURE PERFORMED: Esophagogastroduodenoscopy with biopsy. PREOPERATIVE DIAGNOSIS: Nausea. ESTIMATED BLOOD LOSS: Minimal. IV sedation per anesthesia. PROCEDURE: After informed consent was obtained, the patient was brought into the endoscopy unit. IV sedation was administered by Anesthesia under continuous monitoring. Initially the Olympus GIF-190 video endoscope was inserted into the mouth. Esophagus intubated without any difficulty. It was gradually advanced into the stomach and duodenum and carefully examined. The bulb and the second part of the duodenum appeared normal, with biopsies taken. The scope at this time was withdrawn to the stomach, adequately insufflated with air, and upon careful examination, mucosa of the antrum, body, cardia and the fundus appeared normal, except for some mild scattered erythema in the antrum and body suggestive of mild gastritis with biopsies taken. A few diminutive polyps noted in the body of the stomach likely representing fundic gland polyps. The scope was then withdrawn into the esophagus. The GE junction was located at 37 cm from the incisors, with biopsies taken. The esophagus appeared normal. There were no erosions or ulcerations seen and the patient tolerated the procedure well. IMPRESSION: 1. Mild gastritis antrum and body, biopsied. 2. Biopsies of the GE junction and duodenum. RECOMMENDATIONS: The findings of this examination were discussed with the patient. Okay to resume diet. Okay to resume medications. Continue antibiotic therapy. Await pathology from biopsies. Okay for discharge on otherwise medically stable.
[2020-05-20] MEDS: LORazepam 0.5 MG TAB PO PRN ×2 (13:39→21:33)
--- NOTE | 2020-05-20 16:02 | PN ---
PROGRESS NOTE Patient is seen for followup for acute kidney injury. Renal function has improved with creatinine down to 1.06 now. The patient is comfortable. She denies any significant complaints. She was on IV fluids, which are now discontinued. PHYSICAL EXAMINATION: On examination today, blood pressure was 137/76, heart rate 51 per minute. Patient is afebrile. EXAMINATION OF THE HEART: S1 and S2. EXAMINATION OF LUNGS: Bilateral breath sounds are heard. Decreased breath sounds at bases. ABDOMEN: Soft, non-tender. Examination of lower extremities shows trace edema bilaterally. FIELD SERVICE MANAGER exam is grossly intact. LABS: Labs show sodium 136, potassium 4.1, chloride 106, BUN 13, creatinine 1.06. ASSESSMENT: 1. Acute kidney injury, prerenal, currently improved. 2. Mild volume overload. Continue off of IV fluids. 3. Hypovolemic hyponatremia, currently improved with saline. 4. Nausea with history of gastroparesis; going for EGD today. Patient had the procedure this afternoon which showed mild gastritis, and biopsies of the duodenum and gastroesophageal junction were taken. PLAN: Continue off of IV fluids. Encourage increased oral intake. Repeat labs in a.m. MMODL / IJN: [id number] /
[2020-05-20] MEDS: ALPRAZolam 0.25 MG TAB PO PRN (17:18)
--- NOTE | 2020-05-20 21:09 | PN ---
PROGRESS NOTE DATE OF SERVICE: 05/20/2020 This 75-year-old woman who was admitted with acute renal failure with dehydration is being closely monitored. No chest pain. No palpitations. No fever. Dr. Ulloa performed endoscopy today which showed mild and antral gastritis and biopsies were performed. No chest pain. No palpitations. No fever. PHYSICAL EXAMINATION: Alert and oriented x3. Pulse 55, blood pressure 136/67, respiration 18, temperature 98.1, pulse ox 97% on room air. HEENT: Conjunctivae normal. NECK: No jugular venous distention. CARDIOVASCULAR SYSTEM: S1, S2 muffled. RESPIRATORY SYSTEM: Breath sounds diminished at the bases. Scattered rhonchi. No crackles. ABDOMEN: Soft, non-tender. LEGS: No edema. No swelling. NERVOUS SYSTEM: No focal deficit. LABS: CBC within normal limits. Sodium 136, potassium 4.1. ASSESSMENT: 1. Acute renal failure with severe dehydration, prerenal acute tubular necrosis and acute renal failure. 2. Increased nausea and vomiting; possibly gastroparesis, acute exacerbation. 3. Possible acute urinary tract infection, present on admission. 4. Hypokalemia. 5. Hyponatremia. 6. Gait dysfunction. 7. Asthma, chronic, intermittent. 8. Gastroesophageal reflux disease. 9. Hypertension. 10.History of sleep apnea. 11.History of essential tremors. 12.History of degenerative joint disease. 13.History of bronchitis. 14.History of chronic low back pain. 15.History of restless legs syndrome. 16.Previous serotonin rigidity. 17.History of cholecystectomy. 18.History of colonoscopy. 19.Anxiety, depression, panic attacks. 20.Gait dysfunction. 21.Remote history of nicotine dependence. 22.FULL CODE. RECOMMENDATIONS AND DISCUSSION: I recommend to continue current medications, continue with the monitoring, symptomatic treatment. Otherwise at this time I would recommend following closely with Gastroenterology. Possible PT/OT evaluation, possible ECF rehab. Further recommendations to follow. MMODL / IJN: [id number] / MTDD
[2020-05-21] MEDS: ONDANSETRON 4 MG/2 ML VIAL IVP SCH ×3 (05:42→12:00)
[2020-05-21] MEDS: AMANTADINE HCL 100 MG CAP PO SCH (09:35)
[2020-05-21] MEDS: CARBIDOPA-LEVODOPA 25-100 MG 1 EACH TAB PO SCH ×2 (09:35→15:39)
[2020-05-21] MEDS: PANTOPRAZOLE 40 MG TABLET PO SCH ×2 (09:35→15:39)
[2020-05-21] MEDS: HEPARIN SODIUM,PORCINE 5,000 UNIT/ML 1 ML VIAL SQ SCH (09:35)
[2020-05-21] MEDS: LACTOBACILLUS ACIDOPH & BULGAR 1 EACH PACKET PO SCH (09:35)
[2020-05-21] MEDS: ATENOLOL 25 MG TAB PO SCH (09:35)
[2020-05-21 10:48] LABS: Calcium 8.4 mg/dL (8.4-10.2); Magnesium 1.4 mg/dL (1.6-2.3); Potassium 4.4 mmol/L (3.5-5.1)
[2020-05-21] MEDS ORDERED: Magnesium Replacement Protocol 1 EACH MISC MISCELLANE PRN (10:49)
[2020-05-21] MEDS: MAGNESIUM SULFATE-D5W PMX 1 GM in DEXTROSE/WATER 1 100ML.BAG IVPB SCH ×3 (11:21→14:26)
[2020-05-21] MEDS ORDERED: LORazepam 0.5 MG TAB PO STA (12:19)
[2020-05-21] MEDS ORDERED: LORazepam 0.5 MG TAB PO PRN (13:39)
--- NOTE | 2020-05-21 13:46 | P.CN ---
Psychiatric Consult - . Consult date: 05/21/20 Consult:: 05/21/20 13:40 IDENTIFYING DATA: This patient is a 75-year-old female who currently lives alone in a us[place] housing has 4 kids and 7 grandchildren and collects Social Security. HISTORY OF PRESENT ILLNESS: The patient presented to the hospital for weakness and poor oral intake and was also complaining of nausea. Patient was found to have renal failure and hyponatremia and was admitted for treatment and fluid replacement. Psychiatry is consulted for depression and anxiety. Patient spoke about her Parkinson's disease and her gastroparesis which leads to significant nausea for her. She states that a lot of her irritability and depression is related to her symptoms and states that "I'm fine when I'm not nauseous". She claims that she has been feeling depressed at times and claims that it is "mild" and also admits to mild anxiety and has been taking Ativan for years now. She states that she is usually "optimistic" however has been struggling with her Parkinson's disease and other medical comorbidities. She claims that she goes through a lot going to doctor's appointments and dealing with her medications. She states that her family is wall supportive of her. She claims that her sleep is poor and only sleeps 3-4 hours a night. She states that her appetite is also poor. she spoke about her daughter going through a divorce which has caused significant stress for her. At this time patient denies any suicidal or homical ideations, intent or plan. Patient denies any auditory, visual hallucinations and denies any paranoia or delusions. Patients admits to using no recreational drugs or cigarettes. PAST PSYCHIATRIC HISTORY: Patient has a a history of depression and anxiety. And has previously been on Ativan 0.5 mg twice a day when necessary which is prescribed by her outpatient doctor. In states that she was previously admitted to [facility] approximately 10 years ago. Things that she used to follow up with [facility] social work job titles for outpatient psychiatric care several years ago. Patient denies any history of suicide attempts in the past. PAST MEDICAL HISTORY: Hypertension, Parkinson's disease, GERD. ALLERGIES: as per EMR. CHEMICAL DEPENDENCY HISTORY: as per HPI. FAMILY PSYCHIATRIC/SUBSTANCE USE HISTORY: denies SOCIAL HISTORY: Patient was born and raised in [place] and claims that she completed up to the second year of college. 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 She is currently and lives alone in usp housing has 4 kids and 7 grandkids and collects Social Security. MENTAL STATUS EXAM: General Appearance: Patient appears to be stated age is alert, directable, and cooperative. Patient appears to have fair hygiene and grooming wearing hospital gown with fair eye contact. Behavior: Patient is calmly lying in bed without any agitated behavior. Cooperative. Speech: Patient's speech is fluent and nonpressured. Mood/Affect: Patient reports their mood is "mildly depressed", affect is congru ent Suicidality/Homicidality: Patient denies having any suicidal or homicidal ideation intent or plan. Perceptions: Patient denies any visual hallucinations and denies any auditory hallucinations Though content/process: There is no evidence of any delusional thought content and thought process is linear and goal-directed. Future oriented. Memory and concentration: AOX3, grossly intact for the purposes of this session. Can spell "WORLD" backwards Judgment and insight: Fair IMPRESSIONS: Major depressive disorder, mild Anxiety disorder unspecified PLAN: -At this time patient DOES NOT meet criteria for inpatient psychiatric admission. -Would recommend the following medication changes/additions: Started patient on Remeron 7.5 mg daily at bedtime for insomnia/mood/appetite, this can be increased to 15 mg if patient continues to have poor sleep. Will resume Ativan at a lower dose 0.25 mg twice a day when necessary for anxiety. Cattle Shipper spoke in detail with patient about risks of tolerance, falls and possible sedation with being on Ativan however due to patient being on this chronically she wanted to continue on with this medication and understands the risks. This medication jacob uld be decreased whenever possible or titrated off. -Psychiatry will sign off at this point, please contact with any questions.
--- NOTE | 2020-05-21 14:10 | PN ---
PROGRESS NOTE The patient is seen for followup for acute kidney injury. Her renal function is improved. Creatinine staying at 1.0 mg/dL for the last couple of days. The patient wants to go home. She is not on any IV fluids or diuretics currently. On examination, blood pressure was 161/83, heart rate 61 per minute. She is afebrile. Examination of the heart S1, S2. Examination of the lungs, bilateral breath sounds are heard. Abdomen is soft, nontender. Examination of lower extremities shows trace edema bilaterally. BOTTOM SPRAYER exam grossly intact. Labs show sodium 137, potassium 4.4, chloride 103 BUN 11, serum creatinine 1.0 mg/dL. ASSESSMENT: 1. Acute kidney injury, currently resolved, nonoliguric, mainly prerenal. 2. Mild volume overload. Continue off IV fluids. 3. Hypovolemic hyponatremia, improved with normal saline. 4. Nausea with history of gastroparesis status post EGD yesterday which did not show significant abnormal findings. Mild gastritis was noted. PLAN: Patient is stable for discharge from nephrology standpoint. She may resume the Maxzide that she was taking at home. MMODL / IJN: [id number] /
--- NOTE | 2020-05-21 14:33 | P.DS ---
Providers Date of admission: 05/16/20 21:21 Expected date of discharge: 05/21/20 Attending physician: Jerome Dyer Consults: 05/16/20 21:26 Consult Physician Routine Consulting Provider: Antwon Mendoza Consult Reason/Comments: ARF, hyponatremia Do you want consulting provider notified?: Yes 05/21/20 10:51 Consult Physician Urgent Consulting Provider: Peter Meza Consult Reason/Comments: depression/anxiety Do you want consulting provider notified?: Yes Primary care physician: Enedina Arechiga [facility] Course: Final diagnosis Acute renal failure with severe dehydration, prerenal acute tubular necrosis and acute renal failure Increased nausea and vomiting, possibly gastroparesis, acute exacerbation Possible acute urinary tract infection, present on admission Hypokalemia Hyponatremia Gait dysfunction Asthma, chronic, intermittent Gastroesophageal reflux disease Hypertension History of sleep apnea History of essential tremors history of DJD History of bronchitis history of chronic low back pain History of restless leg syndrome Previous serotonin rigidity History of cholecystectomy History of colonoscopy Anxiety, depression, panic attacks Remote history of nicotine dependence Full code Discharge disposition Patient is being discharged in a stable condition with guarded prognosis to [facility]. Patient will follow-up with Dr. Arechiga upon discharge. Patient will also follow-up with GI in the outpatient setting for results. Total time taken is 35 minutes. History of present illness This is an 75-year-old female who was recently admitted with acute renal failure with dehydration and was being closely monitored. Patient was seen and evaluated by GI and underwent endoscopy which showed mild antral gastritis and biopsies were obtained. Current creatinine is 1.05 and sodium is improved at 137. Magnesium today is 1.4 and currently being replaced. Scripts provided for repeat labs to monitor electrolytes along with magnesium. Patient instructed to encourage oral intake. Patient's nausea continues although patient is anxious and states that her anxiety brings about more nausea. Patient denies any vomiting or diarrhea at is tolerating diet. She will follow-up with GI in the outpatient setting for results. Patient continues to be quite weak and will be going to [facility] for PT/OT therapy for strength and mobility. Currently no reports of chest pain, shortness of breath, or palpitations. Patient is afebrile. No reports of vomiting and patient is tolerating diet. On exam vital signs are stable. Temp is 98.7F, pulse is 61, respirations are 16, blood pressure is 161/83, oxygen saturation is 99% on room air. Cardio S1, S2 are muffled. Respiratory shows clear to auscultation. Abdomen is soft and nontender. Nervous system shows mild diffuse weakness. Please refer to medication reconciliation sheet for a list of medications. Patient Condition at Discharge: Fair Plan - Discharge Summary Discharge Rx Participant: No New Discharge Prescriptions: New Prochlorperazine [Compazine] 10 mg PO Q6HR PRN tab PRN Reason: Nausea And Vomiting Pantoprazole [Protonix] 40 mg PO AC-BID tablet. Acetaminophen Tab [Tylenol] 500 mg PO Q6HR PRN tab PRN Reason: Fever And/ Or Pain Mirtazapine [Remeron] 7.5 mg PO HS #0 tab Continue Omeprazole [PriLOSEC] 20 mg PO DAILY Amantadine HCl [Symmetrel] 100 mg PO BID cap rOPINIRole HCL [Requip] 2 mg PO TID Triamterene-Hctz 37.5-25Mg [Maxzide 37.5-25] 1 tab PO DAILY Ondansetron HCl [Zofran] 4 mg PO Q6H PRN PRN Reason: Nausea And Vomiting Carbidopa-Levodopa 25-100 mg [Sinemet 25-100 mg] 2 tab PO TID Atenolol 25 mg PO DAILY L.acidoph,Paracasei, B.lactis [Probiotic] 1 cap PO DAILY LORazepam [Ativan] 0.5 mg PO BID PRN #4 tab PRN Reason: Anxiety Discharge Medication List Omeprazole [PriLOSEC] 20 mg PO DAILY 10/28/15 [History] Amantadine HCl [Symmetrel] 100 mg PO BID cap 11/01/15 [Rx] Atenolol 25 mg PO DAILY 05/16/20 [History] Carbidopa-Levodopa 25-100 mg [Sinemet 25-100 mg] 2 tab PO TID 05/16/20 [History] L.acidoph,Paracasei, B.lactis [Probiotic] 1 cap PO DAILY 05/16/20 [History] Ondansetron HCl [Zofran] 4 mg PO Q6H PRN 05/16/20 [History] Triamterene-Hctz 37.5-25Mg [Maxzide 37.5-25] 1 tab PO DAILY 05/16/20 [History] rOPINIRole HCL [Requip] 2 mg PO TID 05/16/20 [History] Acetaminophen Tab [Tylenol] 500 mg PO Q6HR PRN tab 05/21/20 [Rx] LORazepam [Ativan] 0.5 mg PO BID PRN #4 tab 05/21/20 [Rx] Mirtazapine [Remeron] 7.5 mg PO HS #0 tab 05/21/20 [Rx] Pantoprazole [Protonix] 40 mg PO AC-BID tablet. 05/21/20 [Rx] Prochlorperazine [Compazine] 10 mg PO Q6HR PRN tab 05/21/20 [Rx] Follow up Appointment(s)/Referral(s): Enedina Arechiga MD [Primary Care Provider] - 1-2 days Simon Ulloa MD [STAFF PHYSICIAN] - 06/21/20 12:45 pm Ambulatory/Diagnostic Orders: Basic Metabolic Panel [LAB.AMB] Time Frame: 2 Days, Location: None Selected Magnesium [LAB.AMB] Time Frame: 2 Days, Location: None Selected Activity/Diet/Wound Care/Special Instructions: Patient is going to [facility] Follow-up with GI in the outpatient setting Follow-up with primary care provider upon discharge Repeat BMP and magnesium levels in 2-3 days Continue heart healthy diet Activity as tolerated Discharge Disposition: TRANSFER TO SNF/ECF
[2020-05-21 15:07] VITALS: BP 115/71; PULSE 56; RESP 18; TEMP 97.8
[2020-05-21] MEDS ORDERED: MIRTAZAPINE 15 MG TAB PO SCH ×2 (21:00)
== END 2020-05-21 17:20 | DRG 391 ==
LOC: EC 18:55 → 5NMEDONC 21:21 → 4SSUR 05-17 10:17
PROVIDERS: ADMIT Hospitalist; ATTEND Hospitalist
PROC: 0DB78ZX Excision of Stomach, Pylorus, Via Natural or Artificial Opening Endoscopic, Diagnostic (ICD-10-PCS; principal; 2020-05-20 07:45)
PROC: 0DB68ZX Excision of Stomach, Via Natural or Artificial Opening Endoscopic, Diagnostic (ICD-10-PCS; principal; 2020-05-20 07:45)
PROC: 0DB98ZX Excision of Duodenum, Via Natural or Artificial Opening Endoscopic, Diagnostic (ICD-10-PCS; principal; 2020-05-20 07:45)
DX: K31.84 Gastroparesis (principal); N17.0 Acute kidney failure with tubular necrosis; E87.1 Hypo-osmolality and hyponatremia; N39.0 Urinary tract infection, site not specified; T50.2X5A Adverse effect of carbonic-anhydrase inhibitors, benzothiadiazides and other diuretics, initial encounter; J45.20 Mild intermittent asthma, uncomplicated; G25.81 Restless legs syndrome; G89.29 Other chronic pain; I10 Essential (primary) hypertension; K21.9 Gastro-esophageal reflux disease without esophagitis; E86.0 Dehydration; E86.1 Hypovolemia; E87.6 Hypokalemia; E87.70 Fluid overload, unspecified; F32.9 Major depressive disorder, single episode, unspecified; F41.0 Panic disorder [episodic paroxysmal anxiety]; F41.1 Generalized anxiety disorder; G20 Parkinson's disease; M19.90 Unspecified osteoarthritis, unspecified site; Z20.828 Contact with and (suspected) exposure to other viral communicable diseases; K29.70 Gastritis, unspecified, without bleeding; K31.7 Polyp of stomach and duodenum; Z79.899 Other long term (current) drug therapy; Z82.3 Family history of stroke; Z82.49 Family history of ischemic heart disease and other diseases of the circulatory system; Z87.891 Personal history of nicotine dependence; Z60.2 Problems related to living alone; R26.9 Unspecified abnormalities of gait and mobility; M54.5 Low back pain; Z90.49 Acquired absence of other specified parts of digestive tract
CPT/HCPCS: 36415; 43239; 71046; 80048; 80051; 80053; 81001; 83605; 83735; 84484; 85025; 85610; 85730; 86850; 86900; 86901; 88305; 93005; 96361; 96374; 96376; 99285

== ENCOUNTER 2020-05-30 16:13 | Inpatient (IN) | payer MEDICARE, BC ==
[2020-05-30] MEDS ORDERED: SODIUM CHLORIDE 0.9% 1,000 ML IV ONE (17:06)
--- NOTE | 2020-05-30 17:09 | ED ---
General Adult HPI - General Chief complaint: Fall Stated complaint: Fall/Altered Mental Time Seen by Provider: 05/30/20 16:15 Source: patient, EMS Mode of arrival: EMS Limitations: no limitations - History of Present Illness Initial comments: Patient is a 75-year-old female with past medical history of asthma, hypertension, Parkinson's he presents to the emergency department after she sustained a fall. She comes from [facility]. He was recently discharged from the hospital after she was here for dehydration and acute kidney injury. States that at the facility she has been placed on mirtazapine. She is now having vivid hallucinations at nighttime that people are partying in her room and that she is traveling to the [facility]. patient is aware that they're hallucinations and that they don't make any sense. She states it all started after she was placed on this new medication. Today the patient was ambulate with her walker when she got her foot caught on the carpet. She fell and hit her head. She denies loss of consciousness. She denies that it was a syncopal episode. Denies fevers or chills. No neck pain. Does admit to left-sided flank pain. There are no other alleviating, precipitating or modifying factors - Related Data Home Medications Medication Instructions Recorded Confirmed Atenolol 25 mg PO DAILY@0805/16/20 05/30/20 Carbidopa-Levodopa 25-100 mg 2 tab PO TID@0800,1200,169905/16/20 05/30/20 [Sinemet 25-100 mg] L.acidoph,Paracasei, B.lactis 1 cap PO DAILY@169905/16/20 05/30/20 [Probiotic] Ondansetron HCl [Zofran] 4 mg PO Q6H PRN 05/16/20 05/30/20 rOPINIRole HCL [Requip] 2 mg PO TID@0800,1200,169905/16/20 05/30/20 Amantadine HCl [Symmetrel] 100 mg PO BID@0800,169905/30/20 05/30/20 Bisacodyl [Dulcolax] 10 mg RECTAL DAILY PRN 05/30/20 05/30/20 Lactose-Reduced Food [Ensure Plus] 240 ml PO DAILY@79905/30/20 05/30/20 Magnesium Hydroxide [Milk of 7,200 mg PO DAILY PRN 05/30/20 05/30/20 Magnesia Concentrate] Na Phos,M-B/Na Phos,Di-Ba [Fleet 133 ml RECTAL DAILY PRN 05/30/20 05/30/20 Adult] Pantoprazole [Protonix] 40 mg PO BID@0800,1700 05/30/20 05/30/20 Previous Rx's Medication Instructions Recorded Acetaminophen Tab [Tylenol] 500 mg PO Q6HR PRN tab 05/21/20 QUEtiapine [SEROquel] 25 mg PO DAILY PRN tab 06/04/20 QUEtiapine [SEROquel] 50 mg PO HS tab 06/04/20 amLODIPine [Norvasc] 10 mg PO DAILY tab 06/04/20 Allergies Allergy/AdvReac Type Severity Reaction Status Date / Time No Known Allergies Allergy Verified 05/30/20 17:18 Review of Systems ROS Statement: Those systems with pertinent positive or pertinent negative responses have been documented in the HPI. ROS Other: All systems not noted in ROS Statement are negative. Past Medical History Past Medical History: Asthma, GERD/Reflux, Hypertension, Neurologic Disorder, Renal Disease, Skin Disorder, Sleep Apnea/CPAP/BIPAP Additional Past Medical History / Comment(s): Parkinson's disease, essential tremors, gastroparesis, nausea on and off for years, renal insufficiency, MIRIAM- unable to tolerate device, bronchitis, chronic low back pain, migraines, constipation, current R great toe infection, RLS, past seotonin rigidity, anemia. History of Any Multi-Drug Resistant Organisms: None Reported Past Surgical History: Cholecystectomy, Heart Catheterization, Tubal Ligation Additional Past Surgical History / Comment(s): Colonoscopy, deviated septal surgery, bilateral cataract removals. Past Anesthesia/Blood Transfusion Reactions: No Reported Reaction Past Psychological History: Anxiety, Depression, Panic Disorder Smoking Status: Former smoker Past Alcohol Use History: Occasional Past Drug Use History: None Reported - Past Family History Mother Additional Family Medical History / Comment(s): during rh incompatibility Father Family Medical History: CVA/TIA General Exam Limitations: no limitations General appearance: alert, in no apparent distress Head exam: Present: atraumatic, normocephalic, normal inspection Eye exam: Present: normal appearance, PERRL, EOMI. Absent: scleral icterus, conjunctival injection, periorbital swelling ENT exam: Present: normal exam, mucous membranes moist Neck exam: Present: normal inspection. Absent: tenderness, meningismus, lymphadenopathy Respiratory exam: Present: normal lung sounds bilaterally, chest wall tenderness (left lateral ribs and posterior ribs on the right). Absent: respiratory distress, wheezes, rales, rhonchi, stridor Cardiovascular Exam: Present: regular rate, normal rhythm, normal heart sounds. Absent: systolic murmur, diastolic murmur, rubs, gallop, clicks GI/Abdominal exam: Present: soft, normal bowel sounds. Absent: distended, tenderness, guarding, rebound, rigid Extremities exam: Present: normal inspection, full ROM, normal capillary refill. Absent: tenderness, pedal edema, joint swelling, calf tenderness Back exam: Present: normal inspection Neurological exam: Present: alert, oriented X3, CN II-XII intact Psychiatric exam: Present: normal affect, normal mood Skin exam: Present: warm, dry, intact, normal color. Absent: rash Course Vital Signs 05/30/20 05/30/20 05/30/20 16:15 16:20 17:20 Temperature 98.2 F Pulse Rate 59 L Respiratory 18 20 20 Rate Blood Pressure 121/79 O2 Sat by Pulse 98 Oximetry 05/30/20 05/30/20 18:20 20:38 Temperature Pulse Rate 60 Respiratory 20 18 Rate Blood Pressure 121/79 114/80 O2 Sat by Pulse 98 Oximetry EKG Findings - EKG Comments: EKG Findings:: EKG demonstrates a possible junctional rhythm. No prominent P waves. Rate of 59. QRS 76. QTC of 441. No acute ST segment elevations or depressions. EKG is compared to old and is similar Medical Decision Making - Medical Decision Making O the patient is placed into room 11. A thorough history and physical exam was performed. Patient is given a liter bolus of normal saline. She is not requesting anything for pain at this time. Laboratory studies were conducted. It is sent over the patient for imaging. Lab studies are remarkable for sodium of 126. Potassium 5.6. Creatinine is 2.5. Previous creatinine 1.11. Urinalysis is positive for moderate leukocyte esterase and 8 white blood cells. It is not a clean catch. There are few bacteria. UDS is positive for benzodiazepines which the patient is prescribed. CT of the head and cervical spine demonstrates no acute fracture dislocation the cervical spine. No acute intracranial hemorrhage or midline shift. Mild to moderate diffuse atrophy and mild chronic small vessel ischemic changes rib x-ray demonstrates chronic changes and cardiac megaly. Old healed fracture of the left lateral fifth through seventh ribs. No acute displaced rib fracture. Blood cultures were obtained the patient was given a dose of antibiotics. I did recommend hospital admission for hydration. I will consult psychiatry as the patient does not appear to be doing well on the medication that was started during previous admission. Patient agreed and is awaiting a bed on the floor - Lab Data Result diagrams: 06/01/20 07:18 06/04/20 09:13 Lab Results 05/30/20 05/30/20 05/30/20 Range/Units 16:20 16:20 16:20 WBC 7.3 (3.8-10.6) k/uL RBC 4.83 (3.80-5.40) m/uL Hgb 13.7 (11.4-16.0) gm/dL Hct 41.7 (34.0-46.0) % MCV 86.4 (80.0-100.0) fL MCH 28.3 (25.0-35.0) pg MCHC 32.8 (31.0-37.0) g/dL RDW 13.7 (11.5-15.5) % Plt Count 383 (150-450) k/uL Neutrophils % 71 % Lymphocytes % 18 % Monocytes % 8 % Eosinophils % 1 % Basophils % 0 % Neutrophils # 5.2 (1.3-7.7) k/uL Lymphocytes # 1.3 (1.0-4.8) k/uL Monocytes # 0.6 (0-1.0) k/uL Eosinophils # 0.1 (0-0.7) k/uL Basophils # 0.0 (0-0.2) k/uL PT 10.3 (9.0-12.0) sec INR 1.0 (<1.2) APTT 23.6 (22.0-30.0) sec Sodium 126 L (137-145) mmol/L Potassium 5.6 H (3.5-5.1) mmol/L Chloride 88 L (98-107) mmol/L Carbon Dioxide 25 (22-30) mmol/L Anion Gap 13 mmol/L BUN 26 H (7-17) mg/dL Creatinine 2.53 H (0.52-1.04) mg/dL Est GFR (CKD-EPI)AfAm 21 (>60 ml/min/1.73 sqM) Est GFR (CKD-EPI)NonAf 18 (>60 ml/min/1.73 sqM) Glucose 98 (74-99) mg/dL POC Glucose (mg/dL) (75-99) mg/dL POC Glu Environmental Designer ID Plasma Lactic Acid Jameson (0.7-2.0) mmol/L Calcium 9.7 (8.4-10.2) mg/dL Total Bilirubin 1.6 H (0.2-1.3) mg/dL AST 23 (14-36) U/L ALT 6 (4-34) U/L Alkaline Phosphatase 76 (38-126) U/L Creatine Kinase 83 (30-135) U/L Troponin I (0.000-0.034) ng/mL Total Protein 7.5 (6.3-8.2) g/dL Albumin 4.7 (3.5-5.0) g/dL Urine Color Urine Appearance (Clear) Urine pH (5.0-8.0) Ur Specific Ferris (1.001-1.035) Urine Protein (Negative) Urine Glucose (UA) (Negative) Urine Ketones (Negative) Urine Blood (Negative) Urine Nitrite (Negative) Urine Bilirubin (Negative) Urine Urobilinogen (<2.0) mg/dL Ur Leukocyte Esterase (Negative) Urine RBC (0-5) /hpf Urine WBC (0-5) /hpf Ur Squamous Epith Cells (0-4) /hpf Urine Bacteria (None) /hpf Hyaline Casts (0-2) /lpf Waxy Casts (0) /lpf Urine Mucus (None) /hpf Urine Opiates Screen (NotDetected) Ur Oxycodone Screen (NotDetected) Urine Methadone Screen (NotDetected) Ur Propoxyphene Screen (NotDetected) Ur Barbiturates Screen (NotDetected) U Tricyclic Antidepress (NotDetected) Ur Phencyclidine Scrn (NotDetected) Ur Amphetamines Screen (NotDetected) U Methamphetamines Scrn (NotDetected) U Benzodiazepines Scrn (NotDetected) Urine Cocaine Screen (NotDetected) U Marijuana (THC) Screen (NotDetected) 05/30/20 05/30/20 05/30/20 Range/Units 16:20 16:20 17:19 WBC (3.8-10.6) k/uL RBC (3.80-5.40) m/uL Hgb (11.4-16.0) gm/dL Hct (34.0-46.0) % MCV (80.0-100.0) fL MCH (25.0-35.0) pg MCHC (31.0-37.0) g/dL RDW (11.5-15.5) % Plt Count (150-450) k/uL Neutrophils % % Lymphocytes % % Monocytes % % Eosinophils % % Basophils % % Neutrophils # (1.3-7.7) k/uL Lymphocytes # (1.0-4.8) k/uL Monocytes # (0-1.0) k/uL Eosinophils # (0-0.7) k/uL Basophils # (0-0.2) k/uL PT (9.0-12.0) sec INR (<1.2) APTT (22.0-30.0) sec Sodium (137-145) mmol/L Potassium (3.5-5.1) mmol/L Chloride (98-107) mmol/L Carbon Dioxide (22-30) mmol/L Anion Gap mmol/L BUN (7-17) mg/dL Creatinine (0.52-1.04) mg/dL Est GFR (CKD-EPI)AfAm (>60 ml/min/1.73 sqM) Est GFR (CKD-EPI)NonAf (>60 ml/min/1.73 sqM) Glucose (74-99) mg/dL POC Glucose (mg/dL) 89 (75-99) mg/dL POC Glu Environmental Designer ID Patty Herrera Plasma Lactic Acid Jameson 1.4 (0.7-2.0) mmol/L Calcium (8.4-10.2) mg/dL Total Bilirubin (0.2-1.3) mg/dL AST (14-36) U/L ALT (4-34) U/L Alkaline Phosphatase (38-126) U/L Creatine Kinase (30-135) U/L Troponin I <0.012 (0.000-0.034) ng/mL Total Protein (6.3-8.2) g/dL Albumin (3.5-5.0) g/dL Urine Color Urine Appearance (Clear) Urine pH (5.0-8.0) Ur Specific Ferris (1.001-1.035) Urine Protein (Negative) Urine Glucose (UA) (Negative) Urine Ketones (Negative) Urine Blood (Negative) Urine Nitrite (Negative) Urine Bilirubin (Negative) Urine Urobilinogen (<2.0) mg/dL Ur Leukocyte Esterase (Negative) Urine RBC (0-5) /hpf Urine WBC (0-5) /hpf Ur Squamous Epith Cells (0-4) /hpf Urine Bacteria (None) /hpf Hyaline Casts (0-2) /lpf Waxy Casts (0) /lpf Urine Mucus (None) /hpf Urine Opiates Screen (NotDetected) Ur Oxycodone Screen (NotDetected) Urine Methadone Screen (NotDetected) Ur Propoxyphene Screen (NotDetected) Ur Barbiturates Screen (NotDetected) U Tricyclic Antidepress (NotDetected) Ur Phencyclidine Scrn (NotDetected) Ur Amphetamines Screen (NotDetected) U Methamphetamines Scrn (NotDetected) U Benzodiazepines Scrn (NotDetected) Urine Cocaine Screen (NotDetected) U Marijuana (THC) Screen (NotDetected) 05/30/20 Range/Units 17:29 WBC (3.8-10.6) k/uL RBC (3.80-5.40) m/uL Hgb (11.4-16.0) gm/dL Hct (34.0-46.0) % MCV (80.0-100.0) fL MCH (25.0-35.0) pg MCHC (31.0-37.0) g/dL RDW (11.5-15.5) % Plt Count (150-450) k/uL Neutrophils % % Lymphocytes % % Monocytes % % Eosinophils % % Basophils % % Neutrophils # (1.3-7.7) k/uL Lymphocytes # (1.0-4.8) k/uL Monocytes # (0-1.0) k/uL Eosinophils # (0-0.7) k/uL Basophils # (0-0.2) k/uL PT (9.0-12.0) sec INR (<1.2) APTT (22.0-30.0) sec Sodium (137-145) mmol/L Potassium (3.5-5.1) mmol/L Chloride (98-107) mmol/L Carbon Dioxide (22-30) mmol/L Anion Gap mmol/L BUN (7-17) mg/dL Creatinine (0.52-1.04) mg/dL Est GFR (CKD-EPI)AfAm (>60 ml/min/1.73 sqM) Est GFR (CKD-EPI)NonAf (>60 ml/min/1.73 sqM) Glucose (74-99) mg/dL POC Glucose (mg/dL) (75-99) mg/dL POC Glu Environmental Designer ID Plasma Lactic Acid Jameson (0.7-2.0) mmol/L Calcium (8.4-10.2) mg/dL Total Bilirubin (0.2-1.3) mg/dL AST (14-36) U/L ALT (4-34) U/L Alkaline Phosphatase (38-126) U/L Creatine Kinase (30-135) U/L Troponin I (0.000-0.034) ng/mL Total Protein (6.3-8.2) g/dL Albumin (3.5-5.0) g/dL Urine Color Yellow Urine Appearance Cloudy H (Clear) Urine pH 6.5 (5.0-8.0) Ur Specific Ferris 1.010 (1.001-1.035) Urine Protein Negative (Negative) Urine Glucose (UA) Negative (Negative) Urine Ketones Negative (Negative) Urine Blood Negative (Negative) Urine Nitrite Negative (Negative) Urine Bilirubin Negative (Negative) Urine Urobilinogen <2.0 (<2.0) mg/dL Ur Leukocyte Esterase Moderate H (Negative) Urine RBC 2 (0-5) /hpf Urine WBC 8 H (0-5) /hpf Ur Squamous Epith Cells 10 H (0-4) /hpf Urine Bacteria Few H (None) /hpf Hyaline Casts 1 (0-2) /lpf Waxy Casts 1 (0) /lpf Urine Mucus Rare H (None) /hpf Urine Opiates Screen Not Detected (NotDetected) Ur Oxycodone Screen Not Detected (NotDetected) Urine Methadone Screen Not Detected (NotDetected) Ur Propoxyphene Screen Not Detected (NotDetected) Ur Barbiturates Screen Not Detected (NotDetected) U Tricyclic Antidepress Not Detected (NotDetected) Ur Phencyclidine Scrn Not Detected (NotDetected) Ur Amphetamines Screen Not Detected (NotDetected) U Methamphetamines Scrn Not Detected (NotDetected) U Benzodiazepines Scrn Detected H (NotDetected) Urine Cocaine Screen Not Detected (NotDetected) U Marijuana (THC) Screen Not Detected (NotDetected) Disposition Clinical Impression: MIKE (acute kidney injury), Hyponatremia, Hallucinations Disposition: ADMITTED IP TO THIS [facility] Condition: Stable Is patient prescribed a controlled substance at d/c from ED?: No Decision to Admit Reason: Admit from EC Decision Date: 05/30/20 Decision Time: 19:30
[2020-05-30 17:38] LABS: Basophils % (A) 0 %; Eosinophils # (A) 0.1 k/uL (0-0.7); Eosinophils % (A) 1 %; HCT 41.7 % (34.0-46.0); HGB 13.7 gm/dL (11.4-16.0); Lymphocytes # (A) 1.3 k/uL (1.0-4.8); Lymphocytes % (A) 18 %; MCH 28.3 pg (25.0-35.0); MCHC 32.8 g/dL (31.0-37.0); MCV 86.4 fL (80.0-100.0); Mean Platelet Volume 7.7; Monocytes # (A) 0.6 k/uL (0-1.0); Monocytes % (A) 8 %; Neutrophils # (A) 5.2 k/uL (1.3-7.7); Neutrophils % (A) 71 %; Platelet Count 383 k/uL (150-450); RBC 4.83 m/uL (3.80-5.40); RDW 13.7 % (11.5-15.5); WBC 7.3 k/uL (3.8-10.6)
[2020-05-30 17:48] LABS: Appearance,Urine Cloudy (Clear); Bacteria,Urine Few /hpf; Bilirubin,Urine Negative (Negative); Blood,Urine Negative (Negative); Color,Urine Yellow; Glucose,Urine (UA) Negative (Negative); Hyaline Casts,Urine 1 /lpf (0-2); Ketones,Urine Negative (Negative); Leukocyte Esterase,Urine Moderate (Negative); Mucus,Urine Rare /hpf; Nitrite,Urine Negative (Negative); PH, Urine 6.5 (5.0-8.0); Protein,Urine Negative (Negative); RBC,Urine 2 /hpf (0-5); Squamous Epithelial Cell,Urine 10 /hpf (0-4); Urobilinogen,Urine <2.0 mg/dL (<2.0); WBC,Urine 8 /hpf (0-5); Waxy Casts,Urine 1 /lpf (0)
[2020-05-30 17:55] LABS: Albumin 4.7 g/dL (3.5-5.0); Calcium 9.7 mg/dL (8.4-10.2); Total Bilirubin 1.6 mg/dL (0.2-1.3); Total Protein 7.5 g/dL (6.3-8.2)
[2020-05-30 17:55] LABS: Amphetamine Screen,Urine Not Detected (NotDetected); Barbiturate Screen,Urine Not Detected (NotDetected); Benzodiazepines Screen,Urine Detected (NotDetected); Cocaine Screen,Urine Not Detected (NotDetected); Methadone Screen, Urine Not Detected (NotDetected); Opiate Screen,Urine Not Detected (NotDetected); Oxycodone Screen, Urine Not Detected (NotDetected); Phencyclidine Screen,Urine Not Detected (NotDetected); Tricyclic Antidepressant,Urine Not Detected (NotDetected); Urn Cannabinoid Scrn Not Detected (NotDetected)
[2020-05-30 17:57] LABS: Partial Thromboplastin Time 23.6 sec (22.0-30.0); Prothrombin Time 10.3 sec (9.0-12.0)
[2020-05-30 17:58] LABS: Potassium 5.6 mmol/L (3.5-5.1)
--- NOTE | 2020-05-30 17:58 | XR ---
EXAMINATION TYPE: XR ribs LT w pa chest xray DATE OF EXAM: 05/30/2020 CLINICAL HISTORY: Chest and left-sided rib pain after falling injury. TECHNIQUE: Single frontal view of the chest is obtained. A frontal and oblique images of the left-lilian ed ribs are acquired. COMPARISON: Prior chest x-ray May 16, 2020. FINDINGS: There is some chronic parenchyma change without suspicious new focal air space opacity, pl eural effusion, or pneumothorax seen. The cardiac silhouette size is stable and mildly enlarged with atherosclerotic and ectatic thoracic aorta. The osseous structures remain demineralized. Underlying scoliosis is redemonstrated. Shift dedicated images left-sided ribs show suspected old healed fractures left lateral fifth through seventh ribs. No acute displaced fractures are evident. IMPRESSION: 1. Chronic changes and cardiomegaly without acute pulmonary process. 2. Old healed fracture left lateral fifth through seventh ribs. No acute displaced left-sided rib fra ctures are evident.
--- NOTE | 2020-05-30 18:04 | CT ---
EXAMINATION TYPE: CT brain cspine wo con DATE OF EXAM: 05/30/2020 COMPARISON: CT brain October 28, 2015 HISTORY: Fall injury with headache and neck pain. CT DLP: 1383.5 mGycm. Automated Exposure Control for Dose Reduction was Utilized. TECHNIQUE: CT scan of the head and cervical spine are performed without contrast. FINDINGS: There is no acute intracranial hemorrhage or midline shift identified. Ventricular and vizcaino lcal prominence. Hyperostosis frontalis. Calvarium is intact. Some low attenuation in the deep and pe riventricular white matter. Sinuses are clear. Globes are intact bilaterally. Cervical spine is visualized in its entirety from C1 through upper thoracic levels and demonstrates s coliotic curvature on coronal images without evidence of acute fracture or dislocation. Prevertebral soft tissue appears within normal limits. The C1-C2 articulation is within normal limits on the cor onal images. Vertebral body heights are maintained. Moderate multilevel disc space narrowing and spur ring is present greatest C4-C5 through the C6-C7 levels. Posterior spur disc complexes efface the ant erior thecal sac at these levels. Additional posterior disc herniation effacing the anterior thecal s ac at C3-C4 level axial image 42. Additional axial images show multilevel uncovertebral facet degener ative changes. Scattered hypodense thyroid nodules bilaterally. Note is made of 1.5 cm left thyroid n odule coronal image 38 lower pole level. Nonemergent thyroid ultrasound follow-up advised if not know n finding. Lung apices show no pneumothorax. IMPRESSION: 1. There is no acute fracture or dislocation evident in the cervical spine. 2. No acute intracranial hemorrhage or midline shift is seen. [id number] diffuse cerebral atrop hy and mild chronic small vessel ischemic changes are noted.
[2020-05-30] MEDS ORDERED: cefTRIAXone IN SWFI 1,000 MG/10 ML SYRINGE IVP STA (19:01)
[2020-05-30] MEDS ORDERED: NALOXONE 0.4 MG/ML 1 ML VIAL IV PRN (19:30)
[2020-05-30] MEDS ORDERED: ACETAMINOPHEN TAB 500 MG TAB PO PRN (19:43)
[2020-05-30] MEDS ORDERED: BISACODYL 10 MG SUPP RECTAL PRN (19:43)
[2020-05-30] MEDS ORDERED: ONDANSETRON 4 MG TAB PO PRN (19:43)
[2020-05-30] MEDS: SODIUM CHLORIDE 0.9% 1,000 ML IV SCH (20:47)
[2020-05-30] MEDS ORDERED: ONDANSETRON 4 MG/2 ML VIAL IVP PRN (22:25)
[2020-05-31] MEDS: SODIUM CHLORIDE 0.9% 1,000 ML IV SCH ×2 (08:55→14:50)
[2020-05-31] MEDS: PANTOPRAZOLE 40 MG TABLET PO SCH ×2 (08:56→16:47)
[2020-05-31] MEDS: AMANTADINE HCL 100 MG CAP PO SCH ×2 (08:56→16:48)
[2020-05-31] MEDS: ATENOLOL 25 MG TAB PO SCH (08:56)
[2020-05-31] MEDS: CARBIDOPA-LEVODOPA 25-100 MG 1 EACH TAB PO SCH ×4 (08:56→16:47)
[2020-05-31 12:53] VITALS: BMI 27.4
[2020-05-31] MEDS ORDERED: QUEtiapine 25 MG TAB PO PRN (13:10)
[2020-05-31] MEDS: amLODIPine 5 MG TAB PO SCH (13:16)
--- NOTE | 2020-05-31 13:21 | P.CN ---
Psychiatric Consult - . Consult date: 05/31/20 Consult:: 05/31/20 10:31 IDENTIFYING DATA: This patient is a 75-year-old [facility] has 4 kids and 7 grandchildren and collects Social Security. HISTORY OF PRESENT ILLNESS: The patient presented to the hospital yesterday after sustaining a fall at [facility]. Patient was apparently reporting having visual hallucinations at night and claiming that "people were partying in my room" according to ER report and also spoke about traveling to a drugstore. Patient claimed that these symptoms began after she was started on Remeron at the hospital on her last admission according to ER report. Patient was recently discharged from the hospital in late April when she was started on Remeron for her mood and appetite. Patient's sodium level was low, potassium was elevated and creatinine was elevated. Patient's urinalysis was positive for leukocyte esterase. Patient's UDS is positive for benzodiazepines. Patient had a CT scan of her head which showed no acute hemorrhage and diffuse atrophy along with chronic vessel ischemia. Psychiatry is consulted for evaluation of medications and psychotic symptoms. Patients nurse claims that patient was agitated earlier and has not been compliant with medications and treatment thus far snd has sent her out of the room. Patient has a sitter at the bedside. Patient was initially suspicious of senior mortgage underwriter and did not recognize him and asked several questions about who he was. Patient briefly spoke about her medications and listed off several medications that she is taking. She appeared to be somewhat irritable during conversation and was a poor historian. Patient was tangential/illogical at times and was unable to explain why she was in the hospital. She spoke about "I saw people in the hallways about 3 days ago playing" however states that she is not experiencing this any longer. She told senior mortgage underwriter several times that "I don't want people to know about this" in discussing her medications and symptoms. She claims that her mood is "okay" and had a constricted affect. She states that she sleeps poorly at night and has poor appetite. At this time patient denies any suicidal or homical ideations, intent or plan. Patient denies any auditory, visual hallucinations. Patients admits to using no recreational drugs or cigarettes. PAST PSYCHIATRIC HISTORY: Patient has a a history of depression and anxiety. Patient was previously started on Remeron for mood/anxiety/appetite however patient apparently has not been tolerating the medication well. She states that she was previously admitted to [facility] approximately 10 years ago. Things that she used to follow up with [facility] for outpatient psychiatric care several years ago. Patient denies any history of suicide attempts in the past. PAST MEDICAL HISTORY: Hypertension, Parkinson's disease, GERD. ALLERGIES: as per EMR. CHEMICAL DEPENDENCY HISTORY: as per HPI. FAMILY PSYCHIATRIC/SUBSTANCE USE HISTORY: denies SOCIAL HISTORY: Patient was born and raised in [place] and claims that she completed up to the second year of college. 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 She is currently and lives at [facility] has 4 kids and 7 grandkids and collects Social Security. MENTAL STATUS EXAM: General Appearance: Patient appears to be stated age is alert, suspicious/paranoid and attempts to cooperate. Patient appears to have fair hygiene and grooming wearing hospital gown with fair eye contact. Behavior: Patient is calmly lying in bed without any agitated behavior. Suspicious/paranoid. Irritable at times. Speech: Patient's speech is fluent and nonpressured. Mood/Affect: Patient reports their mood is "ok", affect is congruent and constricted. Suicidality/Homicidality: Patient denies having any suicidal or homicidal ideation intent or plan. Perceptions: Patient denies any visual hallucinations and denies any auditory hallucinations Though content/process: Tangential/circumstantial, rambles and illogical at times. Significant paranoia. Memory and concentration: AOX2, and believes that she is at "[facility]". Cannot spell "WORLD" backwards. She knows who the current president is. Judgment and insight: Poor IMPRESSIONS: Psychosis unspecified History of dementia PLAN: -At this time patient DOES NOT meet criteria for inpatient psychiatric admission. -Patient DOES NOT have decision making capacity at this time and is unable to reason through and communicate/appreciate the risks, benefits and alternatives to treatment. -Delirium precautions recommended with patient including - avoiding use of narcotics and GATE GUARD sedatives, limit anticholinergic medications when possible, frequent re-orientation, minimize use of restraints, open window shades during the day and close them at night -Would recommend the following medication changes/additions: Would continue holding off on benzodiazepines as this will increase patient's confusion. Discontinued Remeron due to possible adverse effects. We'll start Seroquel 25 mg daily at bedtime for psychosis/insomnia/mood stabilization and also add on 25 mg daily when necessary for acute psychosis/agitation. -Continue 1:1 sitter for safety, primary team to evaluate if this can be discontinued tomorrow. -Psychiatry will continue to follow along -please contact with any questions. 05/31/20 13:10
[2020-05-31 14:09] LABS: Glucose,Whole Blood 89 mg/dL (75-99)
[2020-05-31 14:24] LABS: Basophils # (A) 0.1 k/uL (0-0.2); Basophils % (A) 1 %; Eosinophils % (A) 0 %; HCT 42.1 % (34.0-46.0); HGB 13.5 gm/dL (11.4-16.0); Lymphocytes # (A) 1.4 k/uL (1.0-4.8); Lymphocytes % (A) 15 %; MCH 27.9 pg (25.0-35.0); MCHC 32.1 g/dL (31.0-37.0); Mean Platelet Volume 7.1; Monocytes # (A) 0.8 k/uL (0-1.0); Monocytes % (A) 8 %; Neutrophils % (A) 75 %; Platelet Count 379 k/uL (150-450); RBC 4.84 m/uL (3.80-5.40); RDW 13.7 % (11.5-15.5); WBC 9.4 k/uL (3.8-10.6)
--- NOTE | 2020-05-31 14:29 | P.HPIM ---
History of Present Illness 75-year-old female with past medical history of asthma, hypertension, Parkinson's he presents to the emergency department after she sustained a fall. She comes from [facility]. He was recently discharged from the hospital after she was here for dehydration and acute kidney injury. States that at the facility she has been placed on mirtazapine. She is now having hallucinations at nighttime that people are partying in her room and that she is traveling to the [facility]. patient is aware that they're hallucinations and that they don't make any sense. She states it all started after she was placed on this new medication. Today the patient was ambulate with her walker when she got her foot caught on the carpet. She fell and hit her head. She denies loss of consciousness. She denies that it was a syncopal episode. Denies fevers or chills. No neck pain. Patient appears to be bit angry otherwise patient is alert oriented 3. Patient was having both visual and artery hallucinations. Patient is found to have low sodium as well as acute renal failure and patient is on diuretic therapy for blood pressure. Patient urine drug screen is positive for benzodiazepines. Review of Systems REVIEW OF SYSTEMS: CONSTITUTIONAL: No fever, no malaise, no fatigue. HEENT: No recent visual problems or hearing problems. Denied any sore throat. CARDIOVASCULAR: No chest pain, orthopnea, PND, no palpitations, no syncope. PULMONARY: No shortness of breath, no cough, no hemoptysis. GASTROINTESTINAL: No diarrhea, no nausea, no vomiting, no abdominal pain. NEUROLOGICAL: No headaches, no weakness, no numbness. HEMATOLOGICAL: Denies any bleeding or petechiae. GENITOURINARY: Denies any burning micturition, frequency, or urgency. MUSCULOSKELETAL/RHEUMATOLOGICAL: Denies any joint pain, swelling, or any muscle pain. ENDOCRINE: Denies any polyuria or polydipsia. The rest of the 14-point review of systems is negative. Past Medical History Past Medical History: Asthma, GERD/Reflux, Hypertension, Neurologic Disorder, Renal Disease, Skin Disorder, Sleep Apnea/CPAP/BIPAP Additional Past Medical History / Comment(s): Parkinson's disease, essential tremors, gastroparesis, nausea on and off for years, renal insufficiency, MIRIAM- unable to tolerate device, bronchitis, chronic low back pain, migraines, constipation, current R great toe infection, RLS, past seotonin rigidity, anemia. History of Any Multi-Drug Resistant Organisms: None Reported Past Surgical History: Cholecystectomy, Heart Catheterization, Tubal Ligation Additional Past Surgical History / Comment(s): Colonoscopy, deviated septal surgery, bilateral cataract removals. Past Anesthesia/Blood Transfusion Reactions: No Reported Reaction Past Psychological History: Anxiety, Depression, Panic Disorder Additional Psychological History / Comment(s): Pt resides at [facility] in an apartment. She ambulates with a walker. Smoking Status: Never smoker Past Alcohol Use History: Occasional Additional Past Alcohol Use History / Comment(s): Pt started smoking in 1974 and quit in the . Past Drug Use History: None Reported - Past Family History Mother Additional Family Medical History / Comment(s): during rh incompatibility Father Family Medical History: CVA/TIA Medications and Allergies Home Medications Medication Instructions Recorded Confirmed Type Atenolol 25 mg PO DAILY@0800 05/16/20 05/30/20 History Carbidopa-Levodopa 25-100 mg 2 tab PO TID@0800,1200,1700 05/16/20 05/30/20 History [Sinemet 25-100 mg] L.acidoph,Paracasei, B.lactis 1 cap PO DAILY@169905/16/20 05/30/20 History [Probiotic] Ondansetron HCl [Zofran] 4 mg PO Q6H PRN 05/16/20 05/30/20 History Triamterene-Hctz 37.5-25Mg 1 tab PO DAILY@0800 05/16/20 05/30/20 History [Maxzide 37.5-25] rOPINIRole HCL [Requip] 2 mg PO TID@0800,1200,1700 05/16/20 05/30/20 History Acetaminophen Tab [Tylenol] 500 mg PO Q6HR PRN tab 05/21/20 05/30/20 Rx Amantadine HCl [Symmetrel] 100 mg PO BID@0800,1700 05/30/20 05/30/20 History Bisacodyl [Dulcolax] 10 mg RECTAL DAILY PRN 05/30/20 05/30/20 History Lactose-Reduced Food [Ensure Plus] 240 ml PO DAILY@0800 05/30/20 05/30/20 History Magnesium Hydroxide [Milk of 7,200 mg PO DAILY PRN 05/30/20 05/30/20 History Magnesia Concentrate] Mirtazapine [Remeron] 7.5 mg PO HS@2100 05/30/20 05/30/20 History Na Phos,M-B/Na Phos,Di-Ba [Fleet 133 ml RECTAL DAILY PRN 05/30/20 05/30/20 History Adult] Pantoprazole [Protonix] 40 mg PO BID@0800,1700 05/30/20 05/30/20 History Allergies Allergy/AdvReac Type Severity Reaction Status Date / Time No Known Allergies Allergy Verified 05/30/20 17:18 Physical Exam Vitals: Vital Signs Temp Pulse Pulse Resp BP BP Pulse Ox 05/31/20 07:00 97.9 F 88 16 156/84 93 L 05/31/20 01:15 99.3 F 60 151/75 95 05/31/20 00:00 57 L 05/30/20 21:17 98.7 F 57 L 164/99 98 05/30/20 20:38 60 18 114/80 98 05/30/20 18:20 20 121/79 05/30/20 17:20 20 05/30/20 16:20 20 05/30/20 16:15 98.2 F 59 L 18 121/79 98 Intake and Output 05/30/20 05/31/20 05/31/20 22:59 06:59 14:59 Other: Voiding Method Diaper Incontinent # Voids 1 2 Weight 70.307 kg 70.307 kg PHYSICAL EXAMINATION: GENERAL: The patient is alert and oriented x3, not in any acute distress. Well developed, well nourished. HEENT: Pupils are round and equally reacting to light. EOMI. No scleral icterus. No conjunctival pallor. Normocephalic, atraumatic. No pharyngeal erythema. No thyromegaly. CARDIOVASCULAR: S1 and S2 present. No murmurs, rubs, or gallops. PULMONARY: Chest is clear to auscultation, no wheezing or crackles. ABDOMEN: Soft, nontender, nondistended, normoactive bowel sounds. No palpable organomegaly. MUSCULOSKELETAL: No joint swelling or deformity. EXTREMITIES: No cyanosis, clubbing, or pedal edema. NEUROLOGICAL: Gross neurological examination did not reveal any focal deficits. SKIN: No rashes. Results CBC & Chem 7: 05/31/20 13:53 05/30/20 16:20 Labs: Abnormal Lab Results - Last 24 Hours (Table) 05/30/20 05/30/20 Range/Units 16:20 17:29 Sodium 126 L (137-145) mmol/L Potassium 5.6 H (3.5-5.1) mmol/L Chloride 88 L (98-107) mmol/L BUN 26 H (7-17) mg/dL Creatinine 2.53 H (0.52-1.04) mg/dL Total Bilirubin 1.6 H (0.2-1.3) mg/dL Urine Appearance Cloudy H (Clear) Ur Leukocyte Esterase Moderate H (Negative) Urine WBC 8 H (0-5) /hpf Ur Squamous Epith Cells 10 H (0-4) /hpf Urine Bacteria Few H (None) /hpf Urine Mucus Rare H (None) /hpf U Benzodiazepines Scrn Detected H (NotDetected) Assessment and Plan Plan: -Acute delirium: Secondary to metabolic encephalopathy most probably which is again secondary to hyponatremia and acute renal failure patient was started on IV fluids as well as evidence of sepsis at this time. Avoid opiates, benzodiazepines, barbiturates, anticollagen medications -Acute renal failure probably azotemia secondary to poor peripheral intake as well as diuretics for hypertension and medics will be held patient will be continued on IV fluids -Hyperkalemia secondary to acute renal failure -Mechanical fall: Patient is already in subacute rehabilitation where she can undergo physical therapy will be discharged back to after encephalopathy was addressed -Hypertension patient was started on amlodipine diuretics and this can you less than diabetes medications will be continued patient-gases visual reflux disease -Sleep apnea -Asthma -Depression -DVT prophylaxis subcutaneous heparin For above-mentioned chronic medical problems patient resumed and continued on appropriate home medications.
[2020-05-31 14:37] LABS: Calcium 9.7 mg/dL (8.4-10.2)
[2020-05-31] MEDS: HEPARIN SODIUM,PORCINE 5,000 UNIT/ML 1 ML VIAL SQ SCH (21:27)
[2020-05-31] MEDS: QUEtiapine 25 MG TAB PO SCH (21:27)
[2020-06-01] MEDS: SODIUM CHLORIDE 0.9% 1,000 ML IV SCH ×3 (04:01→20:57)
[2020-06-01 07:43] LABS: HCT 34.6 % (34.0-46.0); MCH 29.9 pg (25.0-35.0); MCHC 34.6 g/dL (31.0-37.0); MCV 86.4 fL (80.0-100.0); Mean Platelet Volume 6.8; Platelet Count 345 k/uL (150-450); RDW 13.6 % (11.5-15.5); WBC 9.1 k/uL (3.8-10.6)
[2020-06-01 07:58] LABS: Calcium 9.3 mg/dL (8.4-10.2); Potassium 4.1 mmol/L (3.5-5.1)
[2020-06-01] MEDS: CARBIDOPA-LEVODOPA 25-100 MG 1 EACH TAB PO SCH ×3 (08:46→17:33)
[2020-06-01] MEDS: ATENOLOL 25 MG TAB PO SCH (08:46)
[2020-06-01] MEDS: PANTOPRAZOLE 40 MG TABLET PO SCH ×2 (08:46→17:33)
[2020-06-01] MEDS: amLODIPine 5 MG TAB PO SCH (08:46)
[2020-06-01] MEDS: AMANTADINE HCL 100 MG CAP PO SCH ×2 (08:46→17:33)
[2020-06-01] MEDS: HEPARIN SODIUM,PORCINE 5,000 UNIT/ML 1 ML VIAL SQ SCH ×2 (08:47→20:57)
--- NOTE | 2020-06-01 13:57 | P.PN ---
Subjective 75-year-old female with past medical history of asthma, hypertension, Parkinson's he presents to the emergency department after she sustained a fall. She comes from [facility]. He was recently discharged from the hospital after she was here for dehydration and acute kidney injury. States that at the facility she has been placed on mirtazapine. She is now having hallucinations at nighttime that people are partying in her room and that she is traveling to the [facility]. patient is aware that they're hallucinations and that they don't make any sense. She states it all started after she was placed on this new medication. Today the patient was ambulate with her walker when she got her foot caught on the carpet. She fell and hit her head. She denies loss of consciousness. She denies that it was a syncopal episode. Denies fevers or chills. No neck pain. Patient appears to be bit angry otherwise patient is alert oriented 3. Patient was having both visual and artery hallucinations. Patient is found to have low sodium as well as acute renal failure and patient is on diuretic therapy for blood pressure. Patient urine drug screen is positive for benzodiazepines. 06/01/2020 Patient is still quite a bit confused but at least pleasant patient does understand the everything. The patient appears more confused because of her Par kinson's and tremor along with that patient is on multiple medications with the C&S and contractions including carbidopa levodopa, Seroquel, amantadine, ropinirole. Her kidney function also improved. Constitutional: Denied any fatigue denied any fever. Cardio vascular: denied any chest pain, palpitations Gastrointestinal denied any nausea vomiting Pulmonary: Denied any shortness of breath cough Neurologic denied any new focal deficits Although patient is not a reliable historian All inpatient medications were reviewed and appropriate changes in these medications as dictated in the interval history and assessment and plan. Objective - Vital Signs Vital signs: Vital Signs Temp 98.4 F 06/01/20 07:12 Pulse 66 06/01/20 07:12 Resp 16 06/01/20 07:12 BP 150/92 06/01/20 07:12 Pulse Ox 97 06/01/20 07:12 Intake & Output 05/31/20 06/01/20 06/01/20 18:59 06:59 18:59 Output Total 300 Balance -300 Weight 70.307 kg Output: Urine 300 Other: Voiding Method Bedpan Bedpan Diaper Diaper Incontinent Incontinent # Voids 2 1 - Exam PHYSICAL EXAMINATION: GENERAL: The patient is alert and oriented x2-3, still confused quite a bit appears to have hallucinations still but more pleasant does have nonessential tremor not in any acute distress. Well developed, well nourished. HEENT: Pupils are round and equally reacting to light. EOMI. No scleral icterus. No conjunctival pallor. Normocephalic, atraumatic. No pharyngeal erythema. No thyromegaly. CARDIOVASCULAR: S1 and S2 present. No murmurs, rubs, or gallops. PULMONARY: Chest is clear to auscultation, no wheezing or crackles. ABDOMEN: Soft, nontender, nondistended, normoactive bowel sounds. No palpable organomegaly. MUSCULOSKELETAL: No joint swelling or deformity. EXTREMITIES: No cyanosis, clubbing, or pedal edema. NEUROLOGICAL: Gross neurological examination did not reveal any focal deficits. Does have significant generalized weakness and nonessential tremor as mentioned above SKIN: No rashes. - Labs CBC & Chem 7: 06/01/20 07:18 06/01/20 07:18 Labs: Abnormal Lab Results - Last 24 Hours (Table) 05/31/20 06/01/20 Range/Units 13:53 07:18 Sodium 129 L 130 L (137-145) mmol/L Chloride 90 L 93 L (98-107) mmol/L BUN 26 H 29 H (7-17) mg/dL Creatinine 2.63 H 2.32 H (0.52-1.04) mg/dL Glucose 100 H 103 H (74-99) mg/dL Microbiology - Last 24 Hours (Table) 05/30/20 21:02 Blood Culture - Preliminary Blood No Growth after 24 hours Assessment and Plan Plan: -Acute delirium: Secondary to metabolic encephalopathy most probably which is again secondary to hyponatremia and acute renal failure patient is on IV fluids with improved at serum sodium and serum creatinine no evidence of sepsis . Avoid opiates, benzodiazepines, barbiturates, anticollagen medications. In advance the stages of Parkinson's dementia and agitation are expected. Continue with Seroquel -Parkinson's and patient can use to her trauma continue with Requip, amantadine and carbidopa levodopa -Acute renal failure probably azotemia secondary to poor peripheral intake as well as diuretics for hypertension and medics will be held patient will be continued on IV fluids improved compared to yesterday -Hyperkalemia secondary to acute renal failure improved -Mechanical fall: Patient is already in subacute rehabilitation where she can undergo physical therapy will be discharged back to after encephalopathy was addressed -Hypertension patient was started on amlodipine diuretics and this can you less than diabetes medications will be continued patient-gases visual reflux disease -Sleep apnea -Asthma -Depression -DVT prophylaxis subcutaneous heparin For above-mentioned chronic medical problems patient resumed and continued on appropriate home medications.
[2020-06-01] MEDS: QUEtiapine 25 MG TAB PO SCH (20:57)
[2020-06-02 07:48] LABS: Calcium 8.6 mg/dL (8.4-10.2); Potassium 3.8 mmol/L (3.5-5.1)
[2020-06-02] MEDS: SODIUM CHLORIDE 0.9% 1,000 ML IV SCH ×2 (09:22→18:07)
[2020-06-02] MEDS: PANTOPRAZOLE 40 MG TABLET PO SCH ×2 (09:23→17:28)
[2020-06-02] MEDS: AMANTADINE HCL 100 MG CAP PO SCH ×2 (09:23→17:28)
[2020-06-02] MEDS: CARBIDOPA-LEVODOPA 25-100 MG 1 EACH TAB PO SCH ×3 (09:23→17:28)
[2020-06-02] MEDS: ATENOLOL 25 MG TAB PO SCH (09:23)
[2020-06-02] MEDS: HEPARIN SODIUM,PORCINE 5,000 UNIT/ML 1 ML VIAL SQ SCH ×2 (09:23→20:46)
[2020-06-02] MEDS: amLODIPine 5 MG TAB PO SCH (09:24)
--- NOTE | 2020-06-02 13:51 | P.PN ---
Subjective 75-year-old female with past medical history of asthma, hypertension, Parkinson's he presents to the emergency department after she sustained a fall. She comes from [facility]. He was recently discharged from the hospital after she was here for dehydration and acute kidney injury. States that at the facility she has been placed on mirtazapine. She is now having hallucinations at nighttime that people are partying in her room and that she is traveling to the [facility]. patient is aware that they're hallucinations and that they don't make any sense. She states it all started after she was placed on this new medication. Today the patient was ambulate with her walker when she got her foot caught on the carpet. She fell and hit her head. She denies loss of consciousness. She denies that it was a syncopal episode. Denies fevers or chills. No neck pain. Patient appears to be bit angry otherwise patient is alert oriented 3. Patient was having both visual and artery hallucinations. Patient is found to have low sodium as well as acute renal failure and patient is on diuretic therapy for blood pressure. Patient urine drug screen is positive for benzodiazepines. 06/01/2020 Patient is still quite a bit confused but at least pleasant patient does understand the everything. The patient appears more confused because of her Par kinson's and tremor along with that patient is on multiple medications with the C&S and contractions including carbidopa levodopa, Seroquel, amantadine, ropinirole. Her kidney function also improved. 06/02/2020 Patient is alert and oriented 3 but still having hallucinations her kidney function continued to improve patient is much pleasant. Constitutional: Denied any fatigue denied any fever. Cardio vascular: denied any chest pain, palpitations Gastrointestinal denied any nausea vomiting Pulmonary: Denied any shortness of breath cough Neurologic denied any new focal deficits Although patient is not a reliable historian All inpatient medications were reviewed and appropriate changes in these medications as dictated in the interval history and assessment and plan. Objective - Vital Signs Vital signs: Vital Signs Temp 99.6 F 06/02/20 07:40 Pulse 60 06/02/20 07:40 Resp 16 06/02/20 07:40 BP 148/86 06/02/20 07:40 Pulse Ox 97 06/02/20 07:40 Intake & Output 06/01/20 06/02/20 06/02/20 18:59 06:59 18:59 Intake Total 100 Output Total 600 Balance -500 Intake: Oral 100 Output: Urine 600 Straight 600 Other: Voiding Method Bedpan Bedpan Bedpan Diaper Diaper Diaper Incontinent Incontinent Incontinent # Voids 1 - Exam PHYSICAL EXAMINATION: GENERAL: The patient is alert and oriented x3, still confused quite a bit appears to have hallucinations still but more pleasant does have nonessential tremor not in any acute distress. Well developed, well nourished. HEENT: Pupils are round and equally reacting to light. EOMI. No scleral icterus. No conjunctival pallor. Normocephalic, atraumatic. No pharyngeal erythema. No thyromegaly. CARDIOVASCULAR: S1 and S2 present. No murmurs, rubs, or gallops. PULMONARY: Chest is clear to auscultation, no wheezing or crackles. ABDOMEN: Soft, nontender, nondistended, normoactive bowel sounds. No palpable organomegaly. MUSCULOSKELETAL: No joint swelling or deformity. EXTREMITIES: No cyanosis, clubbing, or pedal edema. NEUROLOGICAL: Gross neurological examination did not reveal any focal deficits. Does have significant generalized weakness and nonessential tremor as mentioned above SKIN: No rashes. - Labs CBC & Chem 7: 06/01/20 07:18 06/02/20 06:38 Labs: Abnormal Lab Results - Last 24 Hours (Table) 06/02/20 Range/Units 06:38 Sodium 132 L (137-145) mmol/L BUN 23 H (7-17) mg/dL Creatinine 1.60 H (0.52-1.04) mg/dL Microbiology - Last 24 Hours (Table) 05/30/20 21:02 Blood Culture - Preliminary Blood No Growth after 48 hours Assessment and Plan Plan: -Acute delirium: Secondary to metabolic encephalopathy most probably which is again secondary to hyponatremia and acute renal failure patient is on IV fluids with improved at serum sodium and serum creatinine no evidence of sepsis . Avoid opiates, benzodiazepines, barbiturates, anticollagen medications. In advance the stages of Parkinson's dementia and agitation are expected. Continue with Seroquel -Parkinson's and patient can use to her trauma continue with Requip, amantadine and carbidopa levodopa it continues to have significant hallucinations but patient is alert and oriented 3 -Acute renal failure probably azotemia secondary to poor peripheral intake as well as diuretics for hypertension and medics will be held patient will be continued on IV fluids improved compared to yesterday. Patient creatinine continue to improve patient baseline creatinine is less than 1 -Hyperkalemia secondary to acute renal failure improved resolved now -Mechanical fall: Patient is already in subacute rehabilitation where she can undergo physical therapy will be discharged back to after encephalopathy was addressed -Hypertension patient was started on amlodipine diuretics and this can you less than diabetes medications will be continued patient-gases visual reflux disease -Sleep apnea -Asthma -Depression -DVT prophylaxis subcutaneous heparin For above-mentioned chronic medical problems patient resumed and continued on appropriate home medications.
[2020-06-02] MEDS: QUEtiapine 25 MG TAB PO SCH (20:46)
[2020-06-03] MEDS: SODIUM CHLORIDE 0.9% 1,000 ML IV SCH (05:11)
[2020-06-03 08:13] LABS: Calcium 8.5 mg/dL (8.4-10.2); Potassium 3.8 mmol/L (3.5-5.1)
[2020-06-03] MEDS: PANTOPRAZOLE 40 MG TABLET PO SCH ×2 (08:52→17:20)
[2020-06-03] MEDS: amLODIPine 5 MG TAB PO SCH (08:52)
[2020-06-03] MEDS: CARBIDOPA-LEVODOPA 25-100 MG 1 EACH TAB PO SCH ×3 (08:52→17:20)
[2020-06-03] MEDS: ATENOLOL 25 MG TAB PO SCH (08:52)
[2020-06-03] MEDS: AMANTADINE HCL 100 MG CAP PO SCH ×2 (08:52→17:20)
[2020-06-03] MEDS: HEPARIN SODIUM,PORCINE 5,000 UNIT/ML 1 ML VIAL SQ SCH ×2 (08:52→21:40)
--- NOTE | 2020-06-03 13:27 | P.PN ---
Subjective Progress Note Date: 06/03/20 Principal diagnosis: 75-year-old female with past medical history of asthma, hypertension, Parkinson's he presents to the emergency department after she sustained a fall. She comes from [facility]. He was recently discharged from the hospital after she was here for dehydration and acute kidney injury. States that at the facility she has been placed on mirtazapine. She is now having hallucinations at nighttime that people are partying in her room and that she is traveling to [facility]. patient is aware that they're hallucinations and that they don't make any sense. She states it all started after she was placed on this new medication. Today the patient was ambulate with her walker when she got her foot caught on the carpet. She fell and hit her head. She denies loss of consciousness. She denies that it was a syncopal episode. Denies fevers or chills. No neck pain. Patient appears to be bit angry otherwise patient is alert oriented 3. Patient was having both visual and artery hallucinations. Patient is found to have low sodium as well as acute renal failure and patient is on diuretic therapy for blood pressure. Patient urine drug screen is positiv e for benzodiazepines. 06/01/2020 Patient is still quite a bit confused but at least pleasant patient does understand the everything. The patient appears more confused because of her Parkinson's and tremor along with that patient is on multiple medications with the C&S and contractions including carbidopa levodopa, Seroquel, amantadine, ropinirole. Her kidney function also improved. 06/02/2020 Patient is alert and oriented 3 but still having hallucinations her kidney function continued to improve patient is much pleasant. Constitutional: Denied any fatigue denied any fever. Cardio vascular: denied any chest pain, palpitations Gastrointestinal denied any nausea vomiting Pulmonary: Denied any shortness of breath cough Neurologic denied any new focal deficits Although patient is not a reliable historian All inpatient medications were reviewed and appropriate changes in these medicat ions as dictated in the interval history and assessment and plan. 06/03/2020 Patient is seen and evaluated and follow-up and continues to be confused although much more pleasant and alert today. Patient continues to have hallucinations and has been talking to somebody that is not in the room. Dis cussed with family members about their questions and concerns as they feel it is serotonin syndrome although patient has discontinued from those medications. Will also discontinue Zofran and patient will continue on Seroquel as needed. Psychiatry to reevaluate the patient and make adjustments in medications as needed. Case management and social work following as patient will likely go to [facility] once stabilized and discharged. Patient denies any chest pain or shortness of breath at this time. Patient is afebrile. No reports of nausea or vomiting and patient is tolerating diet. Patient continues to have poor oral intake and needs encouragement. To continue with her ensure supplements 3 times daily with meals. Objective - Vital Signs Vital signs: Vital Signs Temp 98.1 F 06/03/20 07:00 Pulse 61 06/03/20 08:53 Resp 17 06/03/20 08:53 BP 155/63 06/03/20 07:00 Pulse Ox 97 06/03/20 07:00 Intake & Output 06/02/20 06/03/20 06/03/20 18:59 06:59 18:59 Intake Total 200 Balance 200 Intake: Oral 200 Other: Voiding Method Bedpan Bedpan Bedpan Diaper Diaper Diaper Incontinent Incontinent Incontinent # Voids 1 - Exam GENERAL: The patient is alert and oriented x3, still confused quite a bit appears to have hallucinations still but more pleasant does have nonessential tremor not in any acute distress. Well developed, well nourished. HEENT: Pupils are round and equally reacting to light. EOMI. No scleral icterus. No conjunctival pallor. Normocephalic, atraumatic. No pharyngeal erythema. No thyromegaly. CARDIOVASCULAR: S1 and S2 present. No murmurs, rubs, or gallops. PULMONARY: Chest is clear to auscultation, no wheezing or crackles. ABDOMEN: Soft, nontender, nondistended, normoactive bowel sounds. No palpable organomegaly. MUSCULOSKELETAL: No joint swelling or deformity. EXTREMITIES: No cyanosis, clubbing, or pedal edema. NEUROLOGICAL: Gross neurological examination did not reveal any focal deficits. Does have significant generalized weakness and nonessential tremor as mentioned above SKIN: No rashes. - Labs CBC & Chem 7: 06/01/20 07:18 06/03/20 06:08 Labs: Abnormal Lab Results - Last 24 Hours (Table) 06/03/20 Range/Units 06:08 Sodium 135 L (137-145) mmol/L Carbon Dioxide 20 L (22-30) mmol/L Creatinine 1.11 H (0.52-1.04) mg/dL Glucose 59 L (74-99) mg/dL Microbiology - Last 24 Hours (Table) 05/30/20 21:02 Blood Culture - Preliminary Blood No Growth after 72 hours Assessment and Plan Assessment: -Acute delirium: Secondary to metabolic encephalopathy most probably which is again secondary to hyponatremia and acute renal failure patient with no evidence of sepsis. Continue to avoid opiates, benzodiazepines, barbiturates, and anticholinergic medications. 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; continue with Requip, amantadine and carbidopa levodopa it continues to have significant hallucinations but patient is alert and oriented 3 -Acute renal failure probably azotemia secondary to poor peripheral intake as well as diuretics, improving current creatinine is 1.11 -Hyperkalemia secondary to acute renal failure resolved now, potassium is 3.8 -Mechanical fall: Patient will most likely return to [facility] for continued PT/OT therapy -Hypertension; amlodipine increased to 10 mg daily, will continue to monitor vital signs closely -Gastroesophageal reflux disease -Sleep apnea -Asthma -Depression -DVT prophylaxis subcutaneous heparin Plan: Discussed with the patient's family about their questions and concerns and patient to continue current medications, management, and symptomatic treatment. Patient is on Seroquel as needed and psychiatry to reevaluate for possible increase in the dosage. Continue to avoid opiates, benzos, and anticholinergic medications. Zofran discontinued. IV fluids discontinued as patient's sodium is 135 today. Continue to encourage oral intake. Case management and social work following as patient will likely return to [facility]CF for continued PT/OT therapy. Patient to continue with Parkinson's medications. Will monitor vital signs and labs closely. Further recommendations to follow. Anticipate possible discharge in 24 hours.
--- NOTE | 2020-06-03 14:31 | P.PN ---
Progress Note - Text Progress Note Date: 06/03/20 Interval History: Patient was seen today for psychiatric follow-up regarding patient's visual and auditory hallucinations. Patient was previously started on Seroquel 25 mg daily at bedtime with a when necessary dose in the daytime. Patient only received one daytime when necessary last Wednesday. Patient has reportedly been still hallucinating mainly at nighttime and speaking to someone in the room as reported by primary team and nursing care patient. They also claimed that patient has been more cooperative and behaviorally more appropriate and taking her medications appropriately. Patient was seen at the bedside and was watching television calmly. Patient was polite with designer/writer however did state that she did have some visual hallucinations over the weekend mainly at nighttime and was continuing to have difficulties with sleep. She states she sleeps approximately 4 hours at nighttime. Patient was alert and oriented 2 and did not know today's date believed it was March 2020. She claims that her mood is "better" and denied any anxiety. She did not endorse any paranoia or any delusions however did state that the visual hallucination was of a "man in my room" and patient apparently "threw water at him". Patient denies any suicidal or homicidal ideations intent or plan. Patient denies any side effects from the medications and has been compliant with meds. Mental Status Exam: General Appearance: Patient appears to be stated age is alert, more cooperative and directable. Patient appears to have fair hygiene and grooming wearing hospital gown with fair eye contact. Behavior: Patient is calmly lying in bed without any agitated behavior. More appropriate today and cooperative. Speech: Patient's speech is fluent and nonpressured. Mood/Affect: Patient reports their mood is "better", affect is congruent and constricted. Suicidality/Homicidality: Patient denies having any suicidal or homicidal ideation intent or plan. Perceptions: Patient denies any visual hallucinations and denies any auditory hallucinations Though content/process: Tangential/circumstantial, rambles at times. More logical. Memory and concentration: AOX2, and believes it is March 2020. Cannot spell "WORLD" backwards. 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 -Delirium precautions recommended with patient including - avoiding use of narcotics and PROFESSIONAL BUILDER sedatives, limit anticholinergic medications when possible, frequent re-orientation, minimize use of restraints, open window shades during the day and close them at night -Would recommend the following medication changes/additions: Will increase Seroquel 50 mg daily at bedtime for psychosis/insomnia/mood stabilization and 25 mg daily when necessary for acute psychosis/agitation. -Psychiatry will sign off at this time as patient has improved significantly. If patient does well overnight then she can be appropriate for discharge back to [facility] when medically appropriate. -please contact with any questions.
[2020-06-03] MEDS ORDERED: QUEtiapine 50 MG TAB PO SCH (21:00)
[2020-06-04] MEDS: SODIUM CHLORIDE 0.9% 1,000 ML IV SCH ×2 (02:09→08:22)
[2020-06-04 07:46] VITALS: RESP 16; TEMP 98.6
[2020-06-04] MEDS: HEPARIN SODIUM,PORCINE 5,000 UNIT/ML 1 ML VIAL SQ SCH (08:20)
[2020-06-04] MEDS: CARBIDOPA-LEVODOPA 25-100 MG 1 EACH TAB PO SCH ×3 (08:21→16:13)
[2020-06-04] MEDS: ATENOLOL 25 MG TAB PO SCH (08:21)
[2020-06-04] MEDS: PANTOPRAZOLE 40 MG TABLET PO SCH ×2 (08:21→16:13)
[2020-06-04] MEDS: AMANTADINE HCL 100 MG CAP PO SCH ×2 (08:22→16:13)
[2020-06-04] MEDS ORDERED: amLODIPine 10 MG TAB PO SCH (09:00)
[2020-06-04 09:51] LABS: Calcium 8.5 mg/dL (8.4-10.2); Potassium 3.5 mmol/L (3.5-5.1)
--- NOTE | 2020-06-04 10:41 | P.PN ---
Progress Note - Text Progress Note Date: 06/04/20 Interval History: Patient was seen today for psychiatric follow-up regarding patient's visual and auditory hallucinations. Yesterday patient's dose of nighttime Seroquel was increased to 50 mg for ongoing hallucinations. Patient's nurse claims that patient has been more cooperative today and was not hallucinating and was able to sleep throughout the night. Nurse also claim the patient has been taking her medications and complying with treatment. Patient was seen at the bedside and was watching television calmly. Patient was appropriate initially with data analyst report writer however began asking data analyst report writer why she is in the hospital and when she can be discharged. She appeared to have poor insight and was rambling at times. She did not endorse any paranoia or any delusions overnight and states that she has been tolerating medication well. She states that her mood is "fine" and denies any depression or anxiety. Patient denies any suicidal or homicidal ideations intent or plan. Patient denies any side effects from the medications and has been compliant with meds. Mental Status Exam: General Appearance: Patient appears to be stated age is alert, more cooperative and directable. Patient appears to have fair hygiene and grooming wearing hospital gown with fair eye contact. Behavior: Patient is calmly lying in bed without any agitated behavior. More appropriate today and attempts to be cooperative. Speech: Patient's speech is fluent and nonpressured. Mood/Affect: Patient reports their mood is "ok", affect is congruent and constricted. Suicidality/Homicidality: Patient denies having any suicidal or homicidal ideation intent or plan. Perceptions: Patient denies any visual hallucinations and denies any auditory hallucinations Though content/process: Tangential/circumstantial, rambles at times. More logical. Memory and concentration: AOX2, and does not know today's date. Cannot spell "WORLD" backwards. 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 -Delirium precautions recommended with patient including - avoiding use of narcotics and CHILDREN'S PROGRAM COORDINATOR sedatives, limit anticholinergic medications when possible, frequent re-orientation, minimize use of restraints, open window shades during the day and close them at night -Would recommend the following medication changes/additions: Will continue with Seroquel 50 mg daily at bedtime for psychosis/insomnia/mood stabilization and 25 mg daily PRN for acute psychosis/agitation. -Psychiatry will sign off at this time as patient has improved significantly. -Patient to be discharged back to [facility] when medically appropriate. -please contact with any questions.
[2020-06-04] MEDS ORDERED: ACETAMINOPHEN TAB 325 MG TAB PO STA (13:14)
--- NOTE | 2020-06-04 13:22 | P.DS ---
Providers Date of admission: 05/30/20 19:30 Expected date of discharge: 06/04/20 Attending physician: Jerome Dyer Consults: 05/30/20 19:31 Consult Physician Urgent Consulting Provider: Peter Meza Consult Reason/Comments: hallucinations, recent medication addition Do you want consulting provider notified?: Yes Primary care physician: Enedina Arechiga [facility] Hospital Course: Final diagnosis -Acute delirium: Secondary to metabolic encephalopathy most probably which is again secondary to hyponatremia and acute renal failure patient with no evidence of sepsis -Parkinson's with nonessential tremor, 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 Patient will follow-up with Dr. Rai in the outpatient setting upon discharge. Total time taken is 35 minutes. History of present illness This is a 75-year-old female who was recently admitted with a recent fall and was being closely monitored. Patient was also recently admitted for dehydration and acute kidney injury and was found to be having hallucinations. Patient was seen and evaluated by psychiatry recommending discontinuing mirtazapine and continuing with Seroquel low-dose as needed during the day and will continue with Seroquel 50 mg at night. Patient also has history of Parkinson's with possible parkinsonian dementia and is progressing further in the disease pr ocess. Spoke with family at length about possible long-term treatment facility for safety reasons and family member who is also the power of psychology physician is not open for that option at this time. Patient daughter would like her to return to [facility] for continued PT/OT therapy to build strength and mobility. Patient also has poor oral intake and states she has been having some discomfort of her tongue and sides of her mouth although no signs of infection or trauma are noted. Patient needs encouragement on eating and drinking and per daughter has been having issues with poor oral intake and mouth dryness previously. Patient to continue with and worse 3 times daily with meals and prefers chocolate. Patient to continue avoiding WAITER/WAITRESS TOURIST CLASS agents and narcotics and antidepressants as much as possible with continuous reorientation. Patient would also need to follow-up with her neurologist in the outpatient setting. Currently no reports of chest pain, shortness of breath, or palpitations. Patient is afebrile. No reports of nausea or vomiting and patient is tolerating diet. Patient had Covid testing during hospitalization and was negative 2. Patient will be going to [facility] today. On exam vital signs are stable. Temp is 98.6F, pulse is 52, respirations are 16, blood pressure is 150/73, oxygen saturation is 94% on room air. Cardio S1, S2 are muffled. Respiratory system shows diminished breath sounds at the bases with no wheezing or rhonchi noted. Abdomen is soft and nontender. Nervous system shows diffuse weakness. Please refer to medication reconciliation sheet for a list of medications. Patient Condition at Discharge: Stable Plan - Discharge Summary Discharge Rx Participant: No New Discharge Prescriptions: New amLODIPine [Norvasc] 10 mg PO DAILY tab QUEtiapine [SEROquel] 25 mg PO DAILY PRN tab PRN Reason: Agitation Or Acute Psychosis QUEtiapine [SEROquel] 50 mg PO HS tab Continue rOPINIRole HCL [Requip] 2 mg PO TID@0800,1200,1700 Ondansetron HCl [Zofran] 4 mg PO Q6H PRN PRN Reason: Nausea And Vomiting Carbidopa-Levodopa 25-100 mg [Sinemet 25-100 mg] 2 tab PO TID@0800,1200,1700 Atenolol 25 mg PO DAILY@0800 L.acidoph,Paracasei, B.lactis [Probiotic] 1 cap PO DAILY@1700 Acetaminophen Tab [Tylenol] 500 mg PO Q6HR PRN tab PRN Reason: Fever And/ Or Pain Na Phos,M-B/Na Phos,Di-Ba [Fleet Adult] 133 ml RECTAL DAILY PRN PRN Reason: Constipation Bisacodyl [Dulcolax] 10 mg RECTAL DAILY PRN PRN Reason: Constipation Pantoprazole [Protonix] 40 mg PO BID@0800,1700 Amantadine HCl [Symmetrel] 100 mg PO BID@0800,1700 Lactose-Reduced Food [Ensure Plus] 240 ml PO DAILY@0800 Magnesium Hydroxide [Milk of Magnesia Concentrate] 7,200 mg PO DAILY PRN PRN Reason: Constipation Discontinued Triamterene-Hctz 37.5-25Mg [Maxzide 37.5-25] 1 tab PO DAILY@0800 Mirtazapine [Remeron] 7.5 mg PO HS@2100 Discharge Medication List Atenolol 25 mg PO DAILY@0800 05/16/20 [History] Carbidopa-Levodopa 25-100 mg [Sinemet 25-100 mg] 2 tab PO TID@0800,1200,1700 05/16/20 [History] L.acidoph,Paracasei, B.lactis [Probiotic] 1 cap PO DAILY@169905/16/20 [History] Ondansetron HCl [Zofran] 4 mg PO Q6H PRN 05/16/20 [History] rOPINIRole HCL [Requip] 2 mg PO TID@0800,1200,1700 05/16/20 [History] Acetaminophen Tab [Tylenol] 500 mg PO Q6HR PRN tab 05/21/20 [Rx] Amantadine HCl [Symmetrel] 100 mg PO BID@0800,1700 05/30/20 [History] Bisacodyl [Dulcolax] 10 mg RECTAL DAILY PRN 05/30/20 [History] Lactose-Reduced Food [Ensure Plus] 240 ml PO DAILY@0800 05/30/20 [History] Magnesium Hydroxide [Milk of Magnesia Concentrate] 7,200 mg PO DAILY PRN 05/30/20 [History] Na Phos,M-B/Na Phos,Di-Ba [Fleet Adult] 133 ml RECTAL DAILY PRN 05/30/20 [History] Pantoprazole [Protonix] 40 mg PO BID@0800,1700 05/30/20 [History] QUEtiapine [SEROquel] 25 mg PO DAILY PRN tab 06/04/20 [Rx] QUEtiapine [SEROquel] 50 mg PO HS tab 06/04/20 [Rx] amLODIPine [Norvasc] 10 mg PO DAILY tab 06/04/20 [Rx] Follow up Appointment(s)/Referral(s): Chacho Rai MD [STAFF PHYSICIAN] - 1-2 days Activity/Diet/Wound Care/Special Instructions: Patient is going to [facility] Activity as tolerated Continue current diet and continue with ensures 3 times a day with meals chocolate per patient request Increase oral care and oral hygiene Continue with Tylenol for discomfort, fever Encourage oral intake Follow-up with primary care provider upon discharge Follow-up with neurology in the outpatient setting Discuss with family about possible long-term care placement in the outpatient setting Discharge Disposition: TRANSFER TO SNF/ECF
[2020-06-04 16:05] VITALS: BP 138/76; PULSE 61
== END 2020-06-04 18:26 | DRG 682 ==
LOC: EC 16:13 → 4SSUR 19:30
PROVIDERS: ADMIT Hospitalist; ATTEND Hospitalist
DX: N17.9 Acute kidney failure, unspecified (principal); G93.41 Metabolic encephalopathy; E87.1 Hypo-osmolality and hyponatremia; G47.33 Obstructive sleep apnea (adult) (pediatric); E87.5 Hyperkalemia; G20 Parkinson's disease; F02.80 Dementia in other diseases classified elsewhere, unspecified severity, without behavioral disturbance, psychotic disturbance, mood disturbance, and anxiety; F32.9 Major depressive disorder, single episode, unspecified; F41.0 Panic disorder [episodic paroxysmal anxiety]; I10 Essential (primary) hypertension; J45.909 Unspecified asthma, uncomplicated; K21.9 Gastro-esophageal reflux disease without esophagitis; K31.84 Gastroparesis; M54.5 Low back pain; T50.2X5A Adverse effect of carbonic-anhydrase inhibitors, benzothiadiazides and other diuretics, initial encounter; Z11.59 Encounter for screening for other viral diseases; Z82.3 Family history of stroke; Z79.899 Other long term (current) drug therapy; Z87.891 Personal history of nicotine dependence; Z91.81 History of falling
CPT/HCPCS: 36410; 36415; 70450; 72125; 76937; 80048; 80053; 80306; 81001; 82550; 83605; 84260; 84484; 85025; 85027; 85610; 85730; 87040; 87635; 93005; 96361; 96374; 99285

== ENCOUNTER 2020-06-17 03:14 | Emergency (ER) | payer MEDICARE, BC ==
[2020-06-17 03:31] VITALS: PULSE 65; RESP 17
[2020-06-17] MEDS ORDERED: SODIUM CHLORIDE 0.9% 1,000 ML IV ONE (03:31)
--- NOTE | 2020-06-17 03:41 | ED ---
Fall HPI - General Source: EMS Mode of arrival: EMS <Oliver Wilhelm - Last Filed: 06/17/20 04:03> <Torito Gonzalez - Last Filed: 06/17/20 05:18> - General Chief Complaint: Fall Stated Complaint: Fall Time Seen by Provider: 06/17/20 03:17 - History of Present Illness Initial Comments: Patient is 75-year-old female with history of recurrent falls presenting to emergency Department with a chief complaint of a fall. Patient brought to the ED via EMS from [facility]. Per EMS, patient was found on the floor by the [facility]. Patient most likely rolled off the bed. The checked the patient at 1 AM and she was sleeping, at 2:30 AM the patient was found on the floor. Patient is known to be AOx 1- 2 at baseline. Worse particularly at night. Patient is alert, however when asked questions she continues to mumble answers. Patient br ought to ED with a c-collar. Patient does not use blood thinners. (Oliver Wilhelm) - Related Data Home Medications Medication Instructions Recorded Confirmed Carbidopa-Levodopa 25-100 mg 2 tab PO TID@0800,1200,1700 05/16/20 05/30/20 [Sinemet 25-100 mg] L.acidoph,Paracasei, B.lactis 1 cap PO DAILY@169905/16/20 05/30/20 [Probiotic] Ondansetron HCl [Zofran] 4 mg PO Q6H PRN 05/16/20 05/30/20 atenoloL [Atenolol] 25 mg PO DAILY@0800 05/16/20 05/30/20 rOPINIRole HCL [Requip] 2 mg PO TID@0800,1200,1700 05/16/20 05/30/20 Lactose-Reduced Food [Ensure Plus] 240 ml PO DAILY@0800 05/30/20 05/30/20 Magnesium Hydroxide [Milk of 7,200 mg PO DAILY PRN 05/30/20 05/30/20 Magnesia Concentrate] Na Phos,M-B/Na Phos,Di-Ba [Fleet 133 ml RECTAL DAILY PRN 05/30/20 05/30/20 Adult] Pantoprazole [Protonix] 40 mg PO BID@0800,1700 05/30/20 05/30/20 amantadine HCL [Symmetrel] 100 mg PO BID@0800,1700 05/30/20 05/30/20 bisacodyL [Dulcolax] 10 mg RECTAL DAILY PRN 05/30/20 05/30/20 Previous Rx's Medication Instructions Recorded Acetaminophen Tab [Tylenol] 500 mg PO Q6HR PRN tab 05/21/20 QUEtiapine [SEROquel] 25 mg PO DAILY PRN tab 06/04/20 QUEtiapine [SEROquel] 50 mg PO HS tab 06/04/20 amLODIPine [Norvasc] 10 mg PO DAILY tab 06/04/20 Allergies Allergy/AdvReac Type Severity Reaction Status Date / Time No Known Allergies Allergy Verified 05/30/20 17:18 Review of Systems ROS Other: All systems not noted in ROS Statement are negative. <Oliver Wilhelm - Last Filed: 06/17/20 04:03> ROS Other: All systems not noted in ROS Statement are negative. <Torito Gonzalez - Last Filed: 06/17/20 05:18> ROS Statement: Those systems with pertinent positive or pertinent negative responses have been documented in the HPI. Past Medical History Past Medical History: Asthma, GERD/Reflux, Hypertension, Neurologic Disorder, Renal Disease, Skin Disorder, Sleep Apnea/CPAP/BIPAP Additional Past Medical History / Comment(s): Parkinson's disease, essential tremors, gastroparesis, nausea on and off for years, renal insufficiency, MIRIAM- unable to tolerate device, bronchitis, chronic low back pain, migraines, constipation, current R great toe infection, RLS, past seotonin rigidity, anemia. History of Any Multi-Drug Resistant Organisms: None Reported Past Surgical History: Cholecystectomy, Heart Catheterization, Tubal Ligation Additional Past Surgical History / Comment(s): Colonoscopy, deviated septal surgery, bilateral cataract removals. Past Anesthesia/Blood Transfusion Reactions: No Reported Reaction Past Psychological History: Anxiety, Depression, Panic Disorder Past Alcohol Use History: Occasional Past Drug Use History: None Reported - Past Family History Mother Additional Family Medical History / Comment(s): during rh incompatibility Father Family Medical History: CVA/TIA <Oliver Wilhelm - Last Filed: 06/17/20 04:03> General Exam Limitations: altered mental status General appearance: alert, in no apparent distress Head exam: Present: normocephalic. Absent: atraumatic (Negative Mario sign, negative raccoon eyes, no hemotympanum.), normal inspection (Ecchymosis near the right periorbital region) Eye exam: Present: normal appearance, PERRL, EOMI Pupils: Present: normal accommodation ENT exam: Present: normal exam, normal oropharynx (Some residual blood on the lips.), mucous membranes moist, TM's normal bilaterally, normal external ear exam, other (Some ecchymosis and swelling noted on the right upper lip) Neck exam: Present: normal inspection, full ROM. Absent: tenderness Respiratory exam: Present: normal lung sounds bilaterally. Absent: respiratory distress, wheezes, rales, chest wall tenderness Cardiovascular Exam: Present: regular rate, normal rhythm, normal heart sounds GI/Abdominal exam: Present: soft. Absent: tenderness, guarding, rebound Extremities exam: Present: normal inspection, full ROM, tenderness (Some tenderness to the posterior right shoulder region), normal capillary refill, other (+2 ulnar and radial pulses bilaterally. +2 dorsalis pedis and posterior tibialis) Back exam: Present: normal inspection, full ROM. Absent: tenderness Neurological exam: Present: alert Psychiatric exam: Present: normal affect, normal mood Skin exam: Present: warm, dry, intact, normal color <Oliver Wilhelm - Last Filed: 06/17/20 04:03> Course Vital Signs 06/17/20 03:18 Temperature 98.7 F Pulse Rate 65 Respiratory 17 Rate Blood Pressure 120/73 O2 Sat by Pulse 97 Oximetry Medical Decision Making <Oliver Wilhelm - Last Filed: 06/17/20 04:03> - Lab Data Result diagrams: 06/17/20 04:09 06/17/20 04:09 <Torito Gonzalez - Last Filed: 06/17/20 05:18> - Medical Decision Making At this time, patient care transferred to . (Oliver Wilhelm) - Lab Data Lab Results 06/17/20 06/17/20 06/17/20 Range/Units 04:06 04:09 04:09 WBC 8.8 (3.8-10.6) k/uL RBC 3.78 L (3.80-5.40) m/uL Hgb 11.2 L (11.4-16.0) gm/dL Hct 33.5 L (34.0-46.0) % MCV 88.7 (80.0-100.0) fL MCH 29.5 (25.0-35.0) pg MCHC 33.3 (31.0-37.0) g/dL RDW 15.0 (11.5-15.5) % Plt Count 287 (150-450) k/uL Neutrophils % 75 % Lymphocytes % 16 % Monocytes % 6 % Eosinophils % 1 % Basophils % 0 % Neutrophils # 6.6 (1.3-7.7) k/uL Lymphocytes # 1.5 (1.0-4.8) k/uL Monocytes # 0.5 (0-1.0) k/uL Eosinophils # 0.1 (0-0.7) k/uL Basophils # 0.0 (0-0.2) k/uL PT 11.1 (9.0-12.0) sec INR 1.1 (<1.2) APTT 19.9 L (22.0-30.0) sec Sodium (137-145) mmol/L Potassium (3.5-5.1) mmol/L Chloride (98-107) mmol/L Carbon Dioxide (22-30) mmol/L Anion Gap mmol/L BUN (7-17) mg/dL Creatinine (0.52-1.04) mg/dL Est GFR (CKD-EPI)AfAm (>60 ml/min/1.73 sqM) Est GFR (CKD-EPI)NonAf (>60 ml/min/1.73 sqM) Glucose (74-99) mg/dL Calcium (8.4-10.2) mg/dL Total Bilirubin (0.2-1.3) mg/dL AST (14-36) U/L ALT (4-34) U/L Alkaline Phosphatase (38-126) U/L Total Protein (6.3-8.2) g/dL Albumin (3.5-5.0) g/dL Urine Color Yellow Urine Appearance Cloudy H (Clear) Urine pH 6.0 (5.0-8.0) Ur Specific [place] 1.022 (1.001-1.035) Urine Protein 1+ H (Negative) Urine Glucose (UA) Negative (Negative) Urine Ketones 1+ H (Negative) Urine Blood Negative (Negative) Urine Nitrite Negative (Negative) Urine Bilirubin Negative (Negative) Urine Urobilinogen 4.0 (<2.0) mg/dL Ur Leukocyte Esterase Trace H (Negative) Urine RBC 1 (0-5) /hpf Urine WBC 3 (0-5) /hpf Ur Squamous Epith Cells 14 H (0-4) /hpf Urine Bacteria Occasional H (None) /hpf Hyaline Casts 14 H (0-2) /lpf Urine Mucus Moderate H (None) /hpf Urine Opiates Screen Not Detected (NotDetected) Ur Oxycodone Screen Not Detected (NotDetected) Urine Methadone Screen Not Detected (NotDetected) Ur Propoxyphene Screen Not Detected (NotDetected) Ur Barbiturates Screen Not Detected (NotDetected) U Tricyclic Antidepress Detected H (NotDetected) Ur Phencyclidine Scrn Not Detected (NotDetected) Ur Amphetamines Screen Not Detected (NotDetected) U Methamphetamines Scrn Not Detected (NotDetected) U Benzodiazepines Scrn Not Detected (NotDetected) Urine Cocaine Screen Not Detected (NotDetected) U Marijuana (THC) Screen Not Detected (NotDetected) 06/17/20 Range/Units 04:09 WBC (3.8-10.6) k/uL RBC (3.80-5.40) m/uL Hgb (11.4-16.0) gm/dL Hct (34.0-46.0) % MCV (80.0-100.0) fL MCH (25.0-35.0) pg MCHC (31.0-37.0) g/dL RDW (11.5-15.5) % Plt Count (150-450) k/uL Neutrophils % % Lymphocytes % % Monocytes % % Eosinophils % % Basophils % % Neutrophils # (1.3-7.7) k/uL Lymphocytes # (1.0-4.8) k/uL Monocytes # (0-1.0) k/uL Eosinophils # (0-0.7) k/uL Basophils # (0-0.2) k/uL PT (9.0-12.0) sec INR (<1.2) APTT (22.0-30.0) sec Sodium 138 (137-145) mmol/L Potassium 4.4 (3.5-5.1) mmol/L Chloride 104 (98-107) mmol/L Carbon Dioxide 26 (22-30) mmol/L Anion Gap 8 mmol/L BUN 36 H (7-17) mg/dL Creatinine 1.18 H (0.52-1.04) mg/dL Est GFR (CKD-EPI)AfAm 52 (>60 ml/min/1.73 sqM) Est GFR (CKD-EPI)NonAf 45 (>60 ml/min/1.73 sqM) Glucose 99 (74-99) mg/dL Calcium 9.1 (8.4-10.2) mg/dL Total Bilirubin 1.0 (0.2-1.3) mg/dL AST 26 (14-36) U/L ALT <6 (4-34) U/L Alkaline Phosphatase 60 (38-126) U/L Total Protein 6.3 (6.3-8.2) g/dL Albumin 3.7 (3.5-5.0) g/dL Urine Color Urine Appearance (Clear) Urine pH (5.0-8.0) Ur Specific [place] (1.001-1.035) Urine Protein (Negative) Urine Glucose (UA) (Negative) Urine Ketones (Negative) Urine Blood (Negative) Urine Nitrite (Negative) Urine Bilirubin (Negative) Urine Urobilinogen (<2.0) mg/dL Ur Leukocyte Esterase (Negative) Urine RBC (0-5) /hpf Urine WBC (0-5) /hpf Ur Squamous Epith Cells (0-4) /hpf Urine Bacteria (None) /hpf Hyaline Casts (0-2) /lpf Urine Mucus (None) /hpf Urine Opiates Screen (NotDetected) Ur Oxycodone Screen (NotDetected) Urine Methadone Screen (NotDetected) Ur Propoxyphene Screen (NotDetected) Ur Barbiturates Screen (NotDetected) U Tricyclic Antidepress (NotDetected) Ur Phencyclidine Scrn (NotDetected) Ur Amphetamines Screen (NotDetected) U Methamphetamines Scrn (NotDetected) U Benzodiazepines Scrn (NotDetected) Urine Cocaine Screen (NotDetected) U Marijuana (THC) Screen (NotDetected) Disposition <Oliver Wilhelm - Last Filed: 06/17/20 04:03> Is patient prescribed a controlled substance at d/c from ED?: No <Torito Gonzalez - Last Filed: 06/17/20 05:18> Clinical Impression: Fall, Contusion of face Disposition: HOME SELF-CARE Condition: Fair Instructions (If sedation given, give patient instructions): Fall Prevention for Older Adults (ED) Referrals: Enedina Arechiga MD [Primary Care Provider] - 1-2 days
[2020-06-17 04:37] LABS: Basophils % (A) 0 %; Eosinophils # (A) 0.1 k/uL (0-0.7); Eosinophils % (A) 1 %; HCT 33.5 % (34.0-46.0); HGB 11.2 gm/dL (11.4-16.0); Lymphocytes # (A) 1.5 k/uL (1.0-4.8); Lymphocytes % (A) 16 %; MCH 29.5 pg (25.0-35.0); MCHC 33.3 g/dL (31.0-37.0); MCV 88.7 fL (80.0-100.0); Mean Platelet Volume 7.5; Monocytes # (A) 0.5 k/uL (0-1.0); Monocytes % (A) 6 %; Neutrophils # (A) 6.6 k/uL (1.3-7.7); Neutrophils % (A) 75 %; Platelet Count 287 k/uL (150-450); RBC 3.78 m/uL (3.80-5.40); WBC 8.8 k/uL (3.8-10.6)
--- NOTE | 2020-06-17 04:57 | CT ---
EXAMINATION TYPE: CT brain cspine wo con DATE OF EXAM: 06/17/2020 COMPARISON: 05/30/2020 HISTORY: Fall Headache. Neck pain CT DLP: 738.4 mGycm Automated exposure control for dose reduction was used. Images obtained of the brain and cervical spine without contrast. There is cerebral cortical atrophy. There is no mass effect nor midline shift. There is no sign of in tracranial hemorrhage. The calvarium appears intact. There is no evidence of cerebral edema. There is right side periorbital soft tissue swelling. The skull base is intact. There is normal aeration of t he temporal bones. Cervical vertebra have fairly normal alignment. There is minor spurring of the endplates. Posterior e lements are intact. Facet joints are intact. The prevertebral soft tissues appear normal. IMPRESSION: Cerebral atrophy. No acute intracranial abnormality. Right side periorbital soft tissue swelling. Spondylotic changes in the cervical spine. No fracture. Brain and cervical spine not changed compared to old exam.
[2020-06-17 05:00] LABS: ALT <6 U/L (4-34); AST 26 U/L (14-36); African American GFR (CKD) 52 (>60 ml/min/1.73 sqM); Albumin 3.7 g/dL (3.5-5.0); Alkaline Phosphatase 60 U/L (38-126); Anion Gap 8 mmol/L; Blood Urea Nitrogen 36 mg/dL (7-17); Calcium 9.1 mg/dL (8.4-10.2); Carbon Dioxide 26 mmol/L (22-30); Chloride 104 mmol/L (98-107); Glucose 99 mg/dL (74-99); Non-African American GFR(CKD) 45 (>60 ml/min/1.73 sqM); Potassium 4.4 mmol/L (3.5-5.1); Sodium 138 mmol/L (137-145); Total Protein 6.3 g/dL (6.3-8.2)
--- NOTE | 2020-06-17 05:02 | XR ---
EXAMINATION TYPE: XR chest 1V DATE OF EXAM: 06/17/2020 COMPARISON: 05/30/2020 HISTORY: Fall. Chest pain TECHNIQUE: FINDINGS: There is no heart failure nor confluent pneumonic infiltrate. Costophrenic angles are clear . Bony thorax is intact. Trachea is midline. Heart size is fairly normal. IMPRESSION: No active cardiopulmonary disease. No change.
[2020-06-17 05:03] LABS: Appearance,Urine Cloudy (Clear); Bacteria,Urine Occasional /hpf; Bilirubin,Urine Negative (Negative); Blood,Urine Negative (Negative); Color,Urine Yellow; Glucose,Urine (UA) Negative (Negative); Hyaline Casts,Urine 14 /lpf (0-2); Ketones,Urine 1+ (Negative); Leukocyte Esterase,Urine Trace (Negative); Mucus,Urine Moderate /hpf; Nitrite,Urine Negative (Negative); Protein,Urine 1+ (Negative); RBC,Urine 1 /hpf (0-5); Specific Gravity,Urine 1.022 (1.001-1.035); Squamous Epithelial Cell,Urine 14 /hpf (0-4); WBC,Urine 3 /hpf (0-5)
[2020-06-17 05:05] LABS: Amphetamine Screen,Urine Not Detected (NotDetected); Barbiturate Screen,Urine Not Detected (NotDetected); Benzodiazepines Screen,Urine Not Detected (NotDetected); Cocaine Screen,Urine Not Detected (NotDetected); Methadone Screen, Urine Not Detected (NotDetected); Opiate Screen,Urine Not Detected (NotDetected); Oxycodone Screen, Urine Not Detected (NotDetected); Phencyclidine Screen,Urine Not Detected (NotDetected); Tricyclic Antidepressant,Urine Detected (NotDetected); Urn Cannabinoid Scrn Not Detected (NotDetected)
[2020-06-17 05:06] LABS: INR 1.1 (<1.2); Prothrombin Time 11.1 sec (9.0-12.0)
--- NOTE | 2020-06-17 05:06 | CT ---
EXAMINATION TYPE: CT facial bones wo con DATE OF EXAM: 06/17/2020 COMPARISON: None HISTORY: Fall CT DLP: 3571 mGycm Automated exposure control for dose reduction was used. Images were obtained from the bottom of the mandible to the top of the frontal sinuses without contra st. The mandibular ring appears intact. Temporomandibular joints are intact. Zygomatic arches appear norm al. The maxilla is intact. There is 2 cm mucous retention cyst in the left maxillary sinus. Nasal bon e is intact. Orbital margins are intact. There is no evidence of blowout fracture. There is some atro phy of the nasal turbinates. I see no focal bone destruction. There is no evidence of retro-orbital m ass. There is right side periorbital soft tissue swelling. The globes are symmetric. There is soft tissue swelling anterior to the right maxilla. IMPRESSION: Right side periorbital and maxillary soft tissue swelling. No fracture seen. No evidence of orbital f racture.
[2020-06-17 05:10] LABS: Partial Thromboplastin Time 19.9 sec (22.0-30.0)
[2020-06-17 05:59] VITALS: BP 120/61; TEMP 97.1
== END 2020-06-17 06:11 | disposition home or self-care (01) ==
LOC: EC 03:14
DX: S00.83XA Contusion of other part of head, initial encounter (principal); K21.9 Gastro-esophageal reflux disease without esophagitis; I10 Essential (primary) hypertension; G47.33 Obstructive sleep apnea (adult) (pediatric); G20 Parkinson's disease; Z79.899 Other long term (current) drug therapy; Z99.89 Dependence on other enabling machines and devices; W06.XXXA Fall from bed, initial encounter
CPT/HCPCS: 36415; 70450; 70486; 71045; 72125; 80053; 80306; 81001; 85025; 85610; 85730; 93005; 96360; 99284

== ENCOUNTER 2020-07-11 12:36 | Observation (INO) | payer MEDICARE, BC ==
[2020-07-11] MEDS ORDERED: SODIUM CHLORIDE 0.9% 1,000 ML IV STA (13:01)
--- NOTE | 2020-07-11 13:03 | ED ---
Weakness HPI - General Chief complaint: Weakness Stated complaint: Failure to thrive Time Seen by Provider: 07/11/20 13:01 Source: EMS, RN notes reviewed, old records reviewed Mode of arrival: EMS Limitations: no limitations - History of Present Illness Initial comments: This is a 75-year-old female to the ER for evaluation patient presents today for evaluation of probable failure to thrive was recently inpatient at [facility], patient having persistent weakness. Patient was apparently trying to gain strength but has become too weak to live alone at home. She is here with son who is having difficulty taking care of her as well she has not been out of her bed in 3 days MD Complaint: generalized weakness, lack of energy, difficulty walking -: days(s) Location: generalized Severity: moderate Severity scale (1-10): 7 Consistency: constant Improves with: none Worsens with: none Context: recent illness, history of similar - Related Data Home Medications Medication Instructions Recorded Confirmed Carbidopa-Levodopa 25-100 mg 2 tab PO TID@0800,1200,1700 05/16/20 07/11/20 [Sinemet 25-100 mg] Ondansetron HCl [Zofran] 4 mg PO Q6H PRN 05/16/20 07/11/20 atenoloL [Atenolol] 25 mg PO DAILY@0800 05/16/20 07/11/20 rOPINIRole HCL [Requip] 2 mg PO TID@0800,1200,1700 05/16/20 07/11/20 amantadine HCL [Symmetrel] 100 mg PO BID@0800,1700 05/30/20 07/11/20 LORazepam [Ativan] 0.5 mg PO BID PRN 07/11/20 07/11/20 Omeprazole [PriLOSEC] 20 mg PO DAILY 07/11/20 07/11/20 QUEtiapine [SEROquel] 25 mg PO DAILY 07/11/20 07/11/20 clonazePAM 0.25 mg PO BID PRN 07/11/20 07/11/20 Previous Rx's Medication Instructions Recorded Acetaminophen Tab [Tylenol] 500 mg PO Q6HR PRN tab 05/21/20 QUEtiapine [SEROquel] 50 mg PO HS tab 06/04/20 Allergies Allergy/AdvReac Type Severity Reaction Status Date / Time No Known Allergies Allergy Verified 07/11/20 14:38 Review of Systems ROS Statement: Those systems with pertinent positive or pertinent negative responses have been documented in the HPI. ROS Other: All systems not noted in ROS Statement are negative. Past Medical History Past Medical History: Asthma, GERD/Reflux, Hypertension, Neurologic Disorder, Renal Disease, Skin Disorder, Sleep Apnea/CPAP/BIPAP Additional Past Medical History / Comment(s): Parkinson's disease, essential tremors, gastroparesis, nausea on and off for years, renal insufficiency, MIRIAM- unable to tolerate device, bronchitis, chronic low back pain, migraines, constipation, RLS, past seotonin rigidity, anemia. History of Any Multi-Drug Resistant Organisms: None Reported Past Surgical History: Cholecystectomy, Heart Catheterization, Tubal Ligation Additional Past Surgical History / Comment(s): Colonoscopy, deviated septal s urgery, bilateral cataract removals. Past Anesthesia/Blood Transfusion Reactions: No Reported Reaction Past Psychological History: Anxiety, Depression, Panic Disorder Smoking Status: Former smoker Past Alcohol Use History: Occasional Past Drug Use History: None Reported - Past Family History Mother Additional Family Medical History / Comment(s): during rh incompatibility Father Family Medical History: CVA/TIA General Exam Limitations: no limitations General appearance: alert, in no apparent distress Head exam: Present: atraumatic, normocephalic, normal inspection Eye exam: Present: normal appearance, PERRL, EOMI. Absent: scleral icterus, conjunctival injection, periorbital swelling ENT exam: Present: normal exam, mucous membranes moist Neck exam: Present: normal inspection. Absent: tenderness, meningismus, lymphadenopathy Respiratory exam: Present: normal lung sounds bilaterally. Absent: respiratory distress, wheezes, rales, rhonchi, stridor Cardiovascular Exam: Present: normal rhythm, bradycardia, normal heart sounds. Absent: systolic murmur, diastolic murmur, rubs, gallop, clicks GI/Abdominal exam: Present: soft, normal bowel sounds. Absent: distended, tenderness, guarding, rebound, rigid Extremities exam: Present: normal inspection, full ROM, normal capillary refill. Absent: tenderness, pedal edema, joint swelling, calf tenderness Back exam: Present: normal inspection Neurological exam: Present: alert, oriented X3, CN II-XII intact Psychiatric exam: Present: normal affect, normal mood Skin exam: Present: warm, dry, intact, normal color. Absent: rash Course Vital Signs 07/11/20 07/11/20 12:42 14:26 Temperature 98.2 F Pulse Rate 58 L 69 Respiratory 18 18 Rate Blood Pressure 138/67 111/57 O2 Sat by Pulse 98 96 Oximetry - Reevaluation(s) Reevaluation #1: 07/11/20 13:03 Medical records reviewed Reevaluation #2: 07/11/20 14:53 Spoke with family at length, informed of results and plan, questions answered and they are agreeable - Consultations Consultation #1: Spoke with [facility] who agrees to admit EKG Findings - EKG Comments: EKG Findings:: EKG is sinus bradycardia 56 TX 192 QRS 74 QTc 447 Medical Decision Making - Medical Decision Making 75 female to the ER persistent falls persistent weakness debility take care of herself secondary to history of Parkinson's disease and recent CVA. Patient be admitted for PTOT and possible placement - Lab Data Result diagrams: 07/11/20 13:19 07/11/20 13:19 Lab Results 07/11/20 07/11/20 07/11/20 Range/Units 13:19 13:19 13:19 WBC 7.0 (3.8-10.6) k/uL RBC 3.83 (3.80-5.40) m/uL Hgb 11.3 L (11.4-16.0) gm/dL Hct 34.5 (34.0-46.0) % MCV 90.2 (80.0-100.0) fL MCH 29.4 (25.0-35.0) pg MCHC 32.6 (31.0-37.0) g/dL RDW 16.0 H (11.5-15.5) % Plt Count 273 (150-450) k/uL Neutrophils % 65 % Lymphocytes % 23 % Monocytes % 8 % Eosinophils % 2 % Basophils % 0 % Neutrophils # 4.5 (1.3-7.7) k/uL Lymphocytes # 1.6 (1.0-4.8) k/uL Monocytes # 0.5 (0-1.0) k/uL Eosinophils # 0.1 (0-0.7) k/uL Basophils # 0.0 (0-0.2) k/uL PT 11.0 (9.0-12.0) sec INR 1.1 (<1.2) APTT 23.3 (22.0-30.0) sec Sodium 138 (137-145) mmol/L Potassium 4.0 (3.5-5.1) mmol/L Chloride 106 (98-107) mmol/L Carbon Dioxide 27 (22-30) mmol/L Anion Gap 5 mmol/L BUN 19 H (7-17) mg/dL Creatinine 0.78 (0.52-1.04) mg/dL Est GFR (CKD-EPI)AfAm 86 (>60 ml/min/1.73 sqM) Est GFR (CKD-EPI)NonAf 74 (>60 ml/min/1.73 sqM) Glucose 102 H (74-99) mg/dL Plasma Lactic Acid [place] (0.7-2.0) mmol/L Calcium 8.9 (8.4-10.2) mg/dL Phosphorus 3.1 (2.5-4.5) mg/dL Magnesium 2.0 (1.6-2.3) mg/dL Total Bilirubin 0.9 (0.2-1.3) mg/dL AST 20 (14-36) U/L ALT <6 (4-34) U/L Alkaline Phosphatase 67 (38-126) U/L Creatine Kinase 42 (30-135) U/L Troponin I (0.000-0.034) ng/mL NT-Pro-B Natriuret Pep pg/mL Total Protein 6.0 L (6.3-8.2) g/dL Albumin 3.4 L (3.5-5.0) g/dL TSH 3.080 (0.465-4.680) mIU/L Urine Color Urine Appearance (Clear) Urine pH (5.0-8.0) Ur Specific [place] (1.001-1.035) Urine Protein (Negative) Urine Glucose (UA) (Negative) Urine Ketones (Negative) Urine Blood (Negative) Urine Nitrite (Negative) Urine Bilirubin (Negative) Urine Urobilinogen (<2.0) mg/dL Ur Leukocyte Esterase (Negative) 07/11/20 07/11/20 07/11/20 Range/Units 13:19 13:19 13:19 WBC (3.8-10.6) k/uL RBC (3.80-5.40) m/uL Hgb (11.4-16.0) gm/dL Hct (34.0-46.0) % MCV (80.0-100.0) fL MCH (25.0-35.0) pg MCHC (31.0-37.0) g/dL RDW (11.5-15.5) % Plt Count (150-450) k/uL Neutrophils % % Lymphocytes % % Monocytes % % Eosinophils % % Basophils % % Neutrophils # (1.3-7.7) k/uL Lymphocytes # (1.0-4.8) k/uL Monocytes # (0-1.0) k/uL Eosinophils # (0-0.7) k/uL Basophils # (0-0.2) k/uL PT (9.0-12.0) sec INR (<1.2) APTT (22.0-30.0) sec Sodium (137-145) mmol/L Potassium (3.5-5.1) mmol/L Chloride (98-107) mmol/L Carbon Dioxide (22-30) mmol/L Anion Gap mmol/L BUN (7-17) mg/dL Creatinine (0.52-1.04) mg/dL Est GFR (CKD-EPI)AfAm (>60 ml/min/1.73 sqM) Est GFR (CKD-EPI)NonAf (>60 ml/min/1.73 sqM) Glucose (74-99) mg/dL Plasma Lactic Acid [place] 0.7 (0.7-2.0) mmol/L Calcium (8.4-10.2) mg/dL Phosphorus (2.5-4.5) mg/dL Magnesium (1.6-2.3) mg/dL Total Bilirubin (0.2-1.3) mg/dL AST (14-36) U/L ALT (4-34) U/L Alkaline Phosphatase (38-126) U/L Creatine Kinase (30-135) U/L Troponin I <0.012 (0.000-0.034) ng/mL NT-Pro-B Natriuret Pep 1270 pg/mL Total Protein (6.3-8.2) g/dL Albumin (3.5-5.0) g/dL TSH (0.465-4.680) mIU/L Urine Color Urine Appearance (Clear) Urine pH (5.0-8.0) Ur Specific [place] (1.001-1.035) Urine Protein (Negative) Urine Glucose (UA) (Negative) Urine Ketones (Negative) Urine Blood (Negative) Urine Nitrite (Negative) Urine Bilirubin (Negative) Urine Urobilinogen (<2.0) mg/dL Ur Leukocyte Esterase (Negative) 07/11/20 Range/Units 14:25 WBC (3.8-10.6) k/uL RBC (3.80-5.40) m/uL Hgb (11.4-16.0) gm/dL Hct (34.0-46.0) % MCV (80.0-100.0) fL MCH (25.0-35.0) pg MCHC (31.0-37.0) g/dL RDW (11.5-15.5) % Plt Count (150-450) k/uL Neutrophils % % Lymphocytes % % Monocytes % % Eosinophils % % Basophils % % Neutrophils # (1.3-7.7) k/uL Lymphocytes # (1.0-4.8) k/uL Monocytes # (0-1.0) k/uL Eosinophils # (0-0.7) k/uL Basophils # (0-0.2) k/uL PT (9.0-12.0) sec INR (<1.2) APTT (22.0-30.0) sec Sodium (137-145) mmol/L Potassium (3.5-5.1) mmol/L Chloride (98-107) mmol/L Carbon Dioxide (22-30) mmol/L Anion Gap mmol/L BUN (7-17) mg/dL Creatinine (0.52-1.04) mg/dL Est GFR (CKD-EPI)AfAm (>60 ml/min/1.73 sqM) Est GFR (CKD-EPI)NonAf (>60 ml/min/1.73 sqM) Glucose (74-99) mg/dL Plasma Lactic Acid [place] (0.7-2.0) mmol/L Calcium (8.4-10.2) mg/dL Phosphorus (2.5-4.5) mg/dL Magnesium (1.6-2.3) mg/dL Total Bilirubin (0.2-1.3) mg/dL AST (14-36) U/L ALT (4-34) U/L Alkaline Phosphatase (38-126) U/L Creatine Kinase (30-135) U/L Troponin I (0.000-0.034) ng/mL NT-Pro-B Natriuret Pep pg/mL Total Protein (6.3-8.2) g/dL Albumin (3.5-5.0) g/dL TSH (0.465-4.680) mIU/L Urine Color Light Yellow Urine Appearance Clear (Clear) Urine pH 8.0 (5.0-8.0) Ur Specific [place] 1.010 (1.001-1.035) Urine Protein Negative (Negative) Urine Glucose (UA) Negative (Negative) Urine Ketones Negative (Negative) Urine Blood Negative (Negative) Urine Nitrite Negative (Negative) Urine Bilirubin Negative (Negative) Urine Urobilinogen <2.0 (<2.0) mg/dL Ur Leukocyte Esterase Negative (Negative) - Radiology Data Radiology results: report reviewed (Chest x-rays negative for acute disease), image reviewed Disposition Clinical Impression: Dehydration, Fall, Weakness, Failure to thrive, Parkinsons disease Disposition: ADMITTED IP TO THIS HOSP Condition: Fair Is patient prescribed a controlled substance at d/c from ED?: No Referrals: Enedina Arechiga MD [Primary Care Provider] - 1-2 days
[2020-07-11 13:43] LABS: Basophils % (A) 0 %; Eosinophils # (A) 0.1 k/uL (0-0.7); Eosinophils % (A) 2 %; HCT 34.5 % (34.0-46.0); HGB 11.3 gm/dL (11.4-16.0); Lymphocytes # (A) 1.6 k/uL (1.0-4.8); Lymphocytes % (A) 23 %; MCH 29.4 pg (25.0-35.0); MCHC 32.6 g/dL (31.0-37.0); MCV 90.2 fL (80.0-100.0); Mean Platelet Volume 7.5; Monocytes # (A) 0.5 k/uL (0-1.0); Monocytes % (A) 8 %; Neutrophils # (A) 4.5 k/uL (1.3-7.7); Neutrophils % (A) 65 %; Platelet Count 273 k/uL (150-450); RBC 3.83 m/uL (3.80-5.40)
[2020-07-11 13:52] LABS: INR 1.1 (<1.2); Partial Thromboplastin Time 23.3 sec (22.0-30.0)
[2020-07-11 13:55] LABS: ALT <6 U/L (4-34); AST 20 U/L (14-36); African American GFR (CKD) 86 (>60 ml/min/1.73 sqM); Albumin 3.4 g/dL (3.5-5.0); Alkaline Phosphatase 67 U/L (38-126); Anion Gap 5 mmol/L; Blood Urea Nitrogen 19 mg/dL (7-17); Calcium 8.9 mg/dL (8.4-10.2); Carbon Dioxide 27 mmol/L (22-30); Chloride 106 mmol/L (98-107); Creatine Kinase 42 U/L (30-135); Glucose 102 mg/dL (74-99); Non-African American GFR(CKD) 74 (>60 ml/min/1.73 sqM); Phosphorus 3.1 mg/dL (2.5-4.5); Sodium 138 mmol/L (137-145); Total Bilirubin 0.9 mg/dL (0.2-1.3)
--- NOTE | 2020-07-11 13:56 | XR ---
EXAMINATION TYPE: XR chest 2V DATE OF EXAM: 07/11/2020 COMPARISON: 06/17/2020 TECHNIQUE: PA and lateral views submitted. HISTORY: Weakness FINDINGS: The lungs are clear and there is no pneumothorax, pleural effusion, or focal pneumonia. Heart is pr ominent. No overt failure. Diffuse osteopenia. IMPRESSION: 1. No acute process.
[2020-07-11 14:41] LABS: Appearance,Urine Clear (Clear); Bilirubin,Urine Negative (Negative); Blood,Urine Negative (Negative); Color,Urine Light Yellow; Glucose,Urine (UA) Negative (Negative); Ketones,Urine Negative (Negative); Leukocyte Esterase,Urine Negative (Negative); Nitrite,Urine Negative (Negative); Protein,Urine Negative (Negative); Urobilinogen,Urine <2.0 mg/dL (<2.0)
[2020-07-11] MEDS ORDERED: SODIUM CHLORIDE 0.9% 1,000 ML IV ONE (14:50)
[2020-07-11] MEDS ORDERED: clonazePAM 0.5 MG TAB PO PRN (19:34)
[2020-07-11] MEDS ORDERED: ONDANSETRON 4 MG TAB PO PRN (19:34)
[2020-07-11] MEDS ORDERED: LORazepam 0.5 MG TAB PO PRN (19:34)
[2020-07-11] MEDS ORDERED: ACETAMINOPHEN TAB 500 MG TAB PO PRN (19:34)
[2020-07-11] MEDS ORDERED: ALPRAZolam 0.25 MG TAB PO PRN (19:36)
[2020-07-11] MEDS ORDERED: HYDROcodone/APAP 5-325MG 1 EACH TAB PO PRN (19:36)
[2020-07-11] MEDS ORDERED: QUEtiapine 50 MG TAB PO SCH (21:00)
[2020-07-11] MEDS: HEPARIN SODIUM,PORCINE 5,000 UNIT/ML 1 ML VIAL SQ SCH (21:09)
[2020-07-11 21:46] VITALS: RESP 18
--- NOTE | 2020-07-11 22:26 | HP ---
HISTORY AND PHYSICAL DATE OF SERVICE: 07/11/2020 CHIEF COMPLAINT: Weakness. HISTORY OF PRESENT ILLNESS: This 75-year-old woman with a past medical history of asthma, GERD, history of hypertension, history of pneumonia, history of renal disease, history of sleep apnea, history of Parkinson's, history of cholecystectomy, cardiac catheterization, anxiety, depression, panic disorder, being followed by Dr. Arechiga in the outpatient setting, lives in a [facility] apartment. The patient was recently admitted with multiple medical problems and the patient was apparently recently out of ECF and last night the patient fell down. The patient wetted herself and was unable to get up for about 9 hours. She apparently spends a lot of time in bed because of significant weakness. The patient also has parkinsonian tremors. The patient was admitted for further evaluation and treatment. There is no history of any fever, rigor or chills. No history of headache, seizures. CT scan of the head was not available. PAST MEDICAL HISTORY: History of asthma, GERD, hypertension, history of neurologic disorder, Parkinson's, essential tremors, cholecystomy, anxiety, depression. HOME MEDICATIONS: Clonazepam, Prilosec, Ativan, Requip, Seroquel, carbidopa, Sinemet t.i.d., atenolol, amantadine, Tylenol. Doses reviewed. ALLERGIES: NONE. FAMILY HISTORY: History of CVA, TIA. SOCIAL HISTORY: Previous history of smoking. Occasional alcohol intake. REVIEW OF SYSTEMS: ENT: Diminished hearing. Diminished vision. CARDIOVASCULAR SYSTEM: No angina, palpitations. RESPIRATORY SYSTEM: No cough, hemoptysis. GI: No nausea, vomiting. : No dysuria or retention. NERVOUS SYSTEM: As mentioned earlier. ALLERGY/IMMUNOLOGY: No asthma, hayfever. MUSCULOSKELETAL: As mentioned earlier. HEMATOLOGY/ONCOLOGY: No history of anemia. ENDOCRINE: No history of diabetes, hypothyroidism. CONSTITUTIONAL: As mentioned earlier. DERMATOLOGY: Negative. RHEUMATOLOGY: Negative. PSYCHIATRY: As mentioned earlier. PHYSICAL EXAMINATION: Patient alert and oriented x3. Pulse 64, blood pressure 152/70, respirations 17, temperature 98.7, pulse ox 100% on room air. HEENT: Conjunctivae normal. Oral mucosa moist. NECK: No jugular venous distention. No carotid bruit. No lymph node enlargement. CARDIOVASCULAR SYSTEM: S1, S2 muffled. RESPIRATORY SYSTEM: Breath sounds diminished at the bases. No rhonchi. No crackles. ABDOMEN: Soft, non-tender. No mass palpable. LEGS: No edema. No swelling. NERVOUS SYSTEM: Higher functions as mentioned earlier. Moves all 4 limbs. No focal motor or sensory deficit. Diffusely weak. Grade 3 to 4 power and diffuse tremors. Increased tones, parkinsonian tremors and rigidity present. Gait dysfunction present. LYMPHATICS: No lymph node palpable in neck, axillae or groin. SKIN: No ulcer, rash, bleeding. JOINTS: No active deforming arthropathy. LABS: WBC 7, hemoglobin 11.3. Sodium 138, potassium 4, albumin 3.4. ASSESSMENT: 1. Severe gait dysfunction. 2. Parkinsonian rigidity as well as parkinsonian exacerbation. 3. Anemia, normocytic. 4. History of asthma, chronic, intermittent. 5. Gastroesophageal reflux disease. 6. Hypertension. 7. History of pneumonia. 8. History of sleep apnea. 9. History of severe gait dysfunction and fall. 10.History of metabolic encephalopathy. 11.History of renal insufficiency recently. 12.History of chronic back pain. 13.History of restless legs syndrome. 14.History of past serotonin rigidity. 15.History of cholecystectomy. 16.History of cardiac catheterization. 17.Anxiety, depression, panic disorder. 18.History of nicotine dependence. RECOMMENDATIONS AND DISCUSSION: In this 75-year-old woman who presented with multiple complex medical issues, at this time I recommend to continue current medications, continue symptomatic treatment, resume the home medications. Neurology evaluation. PT/OT evaluation and possible ECF rehab. Resume the home medications. There is no evidence of infection at this time, but I would order a CT scan of the brain to complete the workup and rule out the possibility of an acute stroke. Once again, the prognosis is extremely guarded. As noted, the patient was not able to get up for several hours. I would also recommend a creatine kinase to rule out the possibility of rhabdomyolysis. A copy of this dictation is being forwarded to Dr. Arechiga, who is the primary physician. [facility] / HILLARY: [id number] /
[2020-07-12] MEDS ORDERED: PANTOPRAZOLE 40 MG TABLET PO SCH (07:30)
--- NOTE | 2020-07-12 08:44 | CT ---
EXAMINATION TYPE: CT brain wo con DATE OF EXAM: 07/12/2020 COMPARISON: 06/17/2020 HISTORY: stroke CT DLP: [address] of the brain was performed. The ventricles, basal cisterns and sulci overlying the cerebral convexities demonstrate mild enlargem ent. There is no evidence for intracranial hemorrhage or sulcal effacement. There is decreased attenuation about the periventricular white matter and deep white matter of both c erebral hemispheres, compatible with chronic small vessel ischemia. Differential diagnosis does inclu de demyelination. No mass effects are seen.No midline shift. Osseous calvarium is intact. If symptoms persist consider MRI. IMPRESSION: 1. Age related atrophic and chronic small vessel ischemic change without acute intracranial process s een at this time.
[2020-07-12 08:52] LABS: African American GFR (CKD) >90 (>60 ml/min/1.73 sqM); Anion Gap 6 mmol/L; Blood Urea Nitrogen 16 mg/dL (7-17); Calcium 8.2 mg/dL (8.4-10.2); Carbon Dioxide 21 mmol/L (22-30); Chloride 113 mmol/L (98-107); Glucose 73 mg/dL (74-99); Non-African American GFR(CKD) 81 (>60 ml/min/1.73 sqM); Sodium 140 mmol/L (137-145)
[2020-07-12 08:54] LABS: Potassium 4.4 mmol/L (3.5-5.1)
[2020-07-12] MEDS ORDERED: NON FORMULARY DRUG (Omeprazole 20 MG) PO SCH (09:00)
[2020-07-12] MEDS ORDERED: QUEtiapine 25 MG TAB PO SCH (09:00)
[2020-07-12] MEDS: HEPARIN SODIUM,PORCINE 5,000 UNIT/ML 1 ML VIAL SQ SCH (09:11)
[2020-07-12] MEDS: atenoloL 25 MG TAB PO SCH ×2 (09:12→13:00)
[2020-07-12] MEDS: CARBIDOPA-LEVODOPA 25-100 MG 1 EACH TAB PO SCH ×2 (09:12→12:51)
[2020-07-12 09:13] LABS: Anisocytosis Slight; Basophils % (A) 1 %; Eosinophils # (A) 0.1 k/uL (0-0.7); Eosinophils % (A) 2 %; HGB 11.4 gm/dL (11.4-16.0); Lymphocytes # (A) 2.5 k/uL (1.0-4.8); Lymphocytes % (A) 34 %; MCH 28.8 pg (25.0-35.0); MCHC 31.6 g/dL (31.0-37.0); MCV 91.1 fL (80.0-100.0); Mean Platelet Volume 10.6; Monocytes # (A) 0.8 k/uL (0-1.0); Monocytes % (A) 10 %; Neutrophils # (A) 3.7 k/uL (1.3-7.7); Neutrophils % (A) 51 %; Platelet Count 171 k/uL (150-450); RBC 3.95 m/uL (3.80-5.40); RDW 16.2 % (11.5-15.5); WBC 7.4 k/uL (3.8-10.6)
[2020-07-12] MEDS ORDERED: MULTIVITAMINS, THERA 1 EACH TAB PO SCH (12:00)
[2020-07-12] MEDS ORDERED: THIAMINE 100 MG TAB PO SCH (12:00)
[2020-07-12] MEDS ORDERED: FOLIC ACID 1 MG TAB PO SCH (12:00)
--- NOTE | 2020-07-12 13:11 | P.DS ---
Providers Date of admission: 07/11/20 14:50 Expected date of discharge: 07/12/20 Attending physician: Jerome Dyer Consults: 07/11/20 16:35 Consult Physician Routine Consulting Provider: Holly Gordon Consult Reason/Comments: parkinson's Do you want consulting provider notified?: Yes Primary care physician: Enedina Hawk [place] [facility] Course: 75-year-old female to the ER for evaluation patient presents today for evaluation of probable failure to thrive was recently inpatient at [facility], patient having persistent weakness. Patient was apparently trying to gain strength but has become too weak to live alone at home. She is here with son who is having difficulty taking care of her as well she has not been out of her bed in 3 days Workup in ED with EKG showed sinus bradycardia without any acute changes; labs reviewed a white blood count of 7.0, hemoglobin 11.3 hematocrit of 34.5 and platelet count of 273, chemical profile was significant for slight elevation in BUN of 19 with normal creatinine; patient was admitted for IV fluid hydration and PT/OT eval for possible placement Case management was consulted and patient is being discharged to skilled facility for possible long-term placement Patient Condition at Discharge: Fair Plan - Discharge Summary Discharge Rx Participant: No New Discharge Prescriptions: New Folic Acid 1 mg PO DAILY@1200 tab Multivitamins, Thera [Multivitamin (formulary)] 1 each PO DAILY@1200 tab Thiamine [Vitamin B-1] 100 mg PO DAILY@1200 tab Continue Ondansetron HCl [Zofran] 4 mg PO Q6H PRN PRN Reason: Nausea And Vomiting Carbidopa-Levodopa 25-100 mg [Sinemet 25-100 mg] 2 tab PO TID@0800,1200,1700 atenoloL [Atenolol] 25 mg PO DAILY@0800 Acetaminophen Tab [Tylenol] 500 mg PO Q6HR PRN tab PRN Reason: Fever And/ Or Pain amantadine HCL [Symmetrel] 100 mg PO BID@0800,1700 QUEtiapine [SEROquel] 50 mg PO HS tab Omeprazole [PriLOSEC] 20 mg PO DAILY QUEtiapine [SEROquel] 25 mg PO DAILY clonazePAM 0.25 mg PO BID PRN #60 tab PRN Reason: Anxiety rOPINIRole HCL [Requip] 2 mg PO TID@0800,1200,1700 #90 tab Discontinued LORazepam [Ativan] 0.5 mg PO BID PRN PRN Reason: Anxiety Discharge Medication List Carbidopa-Levodopa 25-100 mg [Sinemet 25-100 mg] 2 tab PO TID@0800,1200,1700 05/16/20 [History] Ondansetron HCl [Zofran] 4 mg PO Q6H PRN 05/16/20 [History] atenoloL [Atenolol] 25 mg PO DAILY@0800 05/16/20 [History] Acetaminophen Tab [Tylenol] 500 mg PO Q6HR PRN tab 05/21/20 [Rx] amantadine HCL [Symmetrel] 100 mg PO BID@0800,1700 05/30/20 [History] QUEtiapine [SEROquel] 50 mg PO HS tab 06/04/20 [Rx] Omeprazole [PriLOSEC] 20 mg PO DAILY 07/11/20 [History] QUEtiapine [SEROquel] 25 mg PO DAILY 07/11/20 [History] Folic Acid 1 mg PO DAILY@1200 tab 07/12/20 [Rx] Multivitamins, Thera [Multivitamin (formulary)] 1 each PO DAILY@1200 tab 07/12/20 [Rx] Thiamine [Vitamin B-1] 100 mg PO DAILY@1200 tab 07/12/20 [Rx] clonazePAM 0.25 mg PO BID PRN #60 tab 07/12/20 [Rx] rOPINIRole HCL [Requip] 2 mg PO TID@0800,1200,1700 #90 tab 07/12/20 [Rx] Follow up Appointment(s)/Referral(s): Enedina Arechiga MD [Primary Care Provider] - 1-2 days Discharge Disposition: TRANSFER TO SNF/ECF
[2020-07-12 13:53] VITALS: BP 123/73; PULSE 60; TEMP 98
[2020-07-12 15:00] VITALS: BMI 27.4
--- NOTE | 2020-07-12 16:16 | P.CNNES ---
History of Present Illness Consult date: 07/12/20 Requesting physician: Jerome Dyer Reason for Consult: Parkinson's History of Present Illness: Patient is a 75-year-old female with history of Parkinson's disease, was brought to the hospital for failure to thrive, persistent weakness. Patient lives with her son who is having difficulty taking care of her, as well as she has not been out of bed in 3 days. Patient tells me that she wanted "a person" to help her cook and wash and do other chores. However her family came over and were helping. EMS was called and according to the EMS flow sheet, when they arrive patient was sitting inside her living room. Patient had mentioned that her family is working and unable to help take care of her and wishes to be trans ported to [facility]. It was mentioned patient has been having bouts of confusion with an unknown cause. As per EMS she was alert and oriented 4. Patient has history of chronic back pain and weakness and normal gets around while beachchair. Her vitals on the scene was blood pressure 129/67 pulse rate 59 and respirations 18. Saturation 99%. Patient states she has Parkinson's disease for the last 17 years, follows up with Dr. Hernandes. Patient is currently on Sinemet 25/100, 2 tablets 3 times a day and also on Requip 2 mg 3 times a day and amantadine 100 mg twice a day CT head showed age-related atrophic and chronic small vessel ischemic changes without acute intracranial process seen at this time. Chest x-ray showed no acute process. EKG shows sinus bradycardia with PACs. Minimal voltage criteria for LVH. Patient's blood test shows normal CBC, PT/PTT, Chem-20, troponin, TSH 3.080. UA negative. Patient denies any focal neurological symptoms. Denies any numbness, tingling, slurred speech or facial droop. Patient denies tobacco use, drinks alcohol "once in a while". Review of Systems Patient is complaining of some vague symptoms like nothing tastes good for last 1 year, involuntary movement of her mouth, sometime it jerks and she cuts inside of her mouth. No history of seizures. Complains of some hallucinations. Denies any chest pain shortness of breath wheezing or cough. All other review of systems unremarkable. Past Medical History Past Medical History: Asthma, GERD/Reflux, Hypertension, Neurologic Disorder, Pneumonia, Renal Disease, Skin Disorder, Sleep Apnea/CPAP/BIPAP Additional Past Medical History / Comment(s): Parkinson's disease, essential tremors, gastroparesis, nausea on and off for years, hyponatremia with 2ndary metabolic encephalopathy, renal insufficiency, MIRIAM-unable to tolerate device, bronchitis, chronic low back pain, migraines, constipation, RLS, past serotonin rigidity, anemia, R great toe infection. History of Any Multi-Drug Resistant Organisms: None Reported Past Surgical History: Cholecystectomy, Heart Catheterization, Tubal Ligation Additional Past Surgical History / Comment(s): EGD, colonoscopy, deviated septal surgery, bilateral cataract removals. Past Anesthesia/Blood Transfusion Reactions: No Reported Reaction Smoking Status: Former smoker - Past Family History Mother Additional Family Medical History / Comment(s): during rh incompatibility Father Family Medical History: CVA/TIA Medications and Allergies Home Medications Medication Instructions Recorded Confirmed Type Carbidopa-Levodopa 25-100 mg 2 tab PO TID@0800,1200,1700 05/16/20 07/11/20 History [Sinemet 25-100 mg] Ondansetron HCl [Zofran] 4 mg PO Q6H PRN 05/16/20 07/11/20 History atenoloL [Atenolol] 25 mg PO DAILY@0800 05/16/20 07/11/20 History Acetaminophen Tab [Tylenol] 500 mg PO Q6HR PRN tab 05/21/20 07/11/20 Rx amantadine HCL [Symmetrel] 100 mg PO BID@0800,1700 05/30/20 07/11/20 History QUEtiapine [SEROquel] 50 mg PO HS tab 06/04/20 07/11/20 Rx Omeprazole [PriLOSEC] 20 mg PO DAILY 07/11/20 07/11/20 History QUEtiapine [SEROquel] 25 mg PO DAILY 07/11/20 07/11/20 History Folic Acid 1 mg PO DAILY@1200 tab 07/12/20 Rx Multivitamins, Thera [Multivitamin 1 each PO DAILY@1200 tab 07/12/20 Rx (formulary)] Thiamine [Vitamin B-1] 100 mg PO DAILY@1200 tab 07/12/20 Rx clonazePAM 0.25 mg PO BID PRN #60 tab 07/12/20 Rx rOPINIRole HCL [Requip] 2 mg PO TID@0800,1200,1700 #90 tab 07/12/20 Rx Allergies Allergy/AdvReac Type Severity Reaction Status Date / Time No Known Allergies Allergy Verified 07/11/20 14:38 Physical Examination - Vital Signs Vital Signs: Vital Signs Temp Pulse Pulse Resp BP BP Pulse Ox 07/12/20 05:51 97.9 F 55 L 18 125/73 98 07/11/20 21:45 98 F 63 18 132/75 100 07/11/20 15:53 98.7 F 64 17 152/70 100 07/11/20 15:24 98.6 F 57 L 18 124/78 100 07/11/20 14:26 69 18 111/57 96 07/11/20 12:42 98.2 F 58 L 18 138/67 98 Intake and Output 07/11/20 07/12/20 07/12/20 22:59 06:59 14:59 Intake Total 675 Balance 675 Intake: Intake, IV Titration 675 Amount Sodium Chloride 0.9% 1, 675 000 ml @ 100 mls/hr IV . Q10H ONE Rx#:[id number] Other: Voiding Method Bedside Commode Bedside Commode Bedside Commode # Voids 2 1 Weight 70.307 kg On examination patient is an elderly female, in no acute distress. Patient is alert and awake oriented to time place and person. She knows that it is June 2020 that she is in [facility] and name of the current president. Speech and language functions are normal. Attention and concentrati on fund of knowledge is adequate. On cranial examination pupils are round and reactive to light, visual lynne are full on confrontation, extraocular muscles are intact with no nystagmus. Face is symmetric, tongue protrudes to midline. Palatal elevation and sensation normal. Her muscle strength is normal in the arms and legs. Reflexes are 1+ and plantars downgoing. patient has peripheral edema. No ataxia for [id number] testing. Tone and bulk of muscles normal gait deferred. No carotid bruit heard on either side, no murmur, S1 and S2 audible. Abdomen soft nontender. Chest clear. Results - Laboratory Findings CBC and BMP: 07/12/20 06:46 07/12/20 06:46 Abnormal Lab Findings: Abnormal Labs 07/11/20 07/11/20 07/12/20 13:19 13:19 06:46 Hgb 11.3 L RDW 16.0 H 16.2 H Chloride Carbon Dioxide BUN 19 H Glucose 102 H Calcium Total Protein 6.0 L Albumin 3.4 L 07/12/20 06:46 Hgb RDW Chloride 113 H Carbon Dioxide 21 L BUN Glucose 73 L Calcium 8.2 L Total Protein Albumin Assessment and Plan Assessment: * Altered mental status, unclear etiology. At present patient's mentation is back to normal. Possible mild delirium. * Parkinson's disease, stable. Plan: * No other neurological workup indicated. * Follow up with her neurologist for Parkinson's disease as per schedule. * Apparently patient is ready for discharge. Neurologically also clear.
== END 2020-07-12 15:04 ==
LOC: EC 12:36 → 5NMEDONC 14:50
PROVIDERS: ADMIT Hospitalist; ATTEND Hospitalist
DX: R53.1 Weakness (principal); R62.7 Adult failure to thrive; R26.2 Difficulty in walking, not elsewhere classified; E86.0 Dehydration; G20 Parkinson's disease; F02.80 Dementia in other diseases classified elsewhere, unspecified severity, without behavioral disturbance, psychotic disturbance, mood disturbance, and anxiety; G25.0 Essential tremor; D64.9 Anemia, unspecified; J45.20 Mild intermittent asthma, uncomplicated; K21.9 Gastro-esophageal reflux disease without esophagitis; I10 Essential (primary) hypertension; G47.33 Obstructive sleep apnea (adult) (pediatric); N28.9 Disorder of kidney and ureter, unspecified; G89.29 Other chronic pain; M54.5 Low back pain; G25.81 Restless legs syndrome; F41.9 Anxiety disorder, unspecified; F32.9 Major depressive disorder, single episode, unspecified; F41.0 Panic disorder [episodic paroxysmal anxiety]; K31.84 Gastroparesis; I49.1 Atrial premature depolarization; G31.9 Degenerative disease of nervous system, unspecified; I67.82 Cerebral ischemia; R44.3 Hallucinations, unspecified; Z87.01 Personal history of pneumonia (recurrent); Z91.81 History of falling; Z86.69 Personal history of other diseases of the nervous system and sense organs; Z90.49 Acquired absence of other specified parts of digestive tract; Z98.890 Other specified postprocedural states; Z87.891 Personal history of nicotine dependence; Z74.1 Need for assistance with personal care; Z79.899 Other long term (current) drug therapy; Z87.2 Personal history of diseases of the skin and subcutaneous tissue; Z87.09 Personal history of other diseases of the respiratory system; Z87.19 Personal history of other diseases of the digestive system; Z86.2 Personal history of diseases of the blood and blood-forming organs and certain disorders involving the immune mechanism; Z98.51 Tubal ligation status; Z98.41 Cataract extraction status, right eye; Z98.42 Cataract extraction status, left eye; Z86.73 Personal history of transient ischemic attack (TIA), and cerebral infarction without residual deficits; Z83.2 Family history of diseases of the blood and blood-forming organs and certain disorders involving the immune mechanism; Z82.3 Family history of stroke
CPT/HCPCS: 96372 ×2; 99285; 36415; 93005; 97161; 97166; 83880; 80053; 80048; 82550; 83605; 83735; 84100; 84443; 84484; 85025 ×2; 85610; 85730; 81003; 71046; 70450; G0378 ×2; J1644 ×2

== ENCOUNTER 2023-02-17 00:32 | Emergency (ER) | payer MEDICARE, BC ==
[2023-02-17 00:51] VITALS: RESP 16; TEMP 97.8
--- NOTE | 2023-02-17 01:08 | ED ---
Fall HPI - General Chief Complaint: Fall Stated Complaint: Fall Time Seen by Provider: 02/17/23 00:39 Source: patient, EMS, RN notes reviewed Mode of arrival: EMS Limitations: no limitations - History of Present Illness Initial Comments: This is a 77-year-old female who presents to the emergency department for a fall. Patient has Parkinson's disease and was trying to get into bed when she fell. Currently lives at [facility]. When she fell, she landed on her right side. She is not in any pain when sitting still, however she states that if you press on her right hip and right side, it is painful. She does have several skin tears to the right arm that were bandaged at [facility]. She did not hit her head or have any loss of consciousness. Not taking any blood thinners. Unsure when her last tetanus vaccine was. Denies any fevers, chills, sore throat, cough, dyspnea, chest pain, palpitations, abdominal pain, nausea, vomiting, diarrhea, or headaches. MD Complaint: fall - Related Data Home Medications Medication Instructions Recorded Confirmed Carbidopa-Levodopa 25-100 mg 2 tab PO TID@0800,1200,1700 05/16/20 07/11/20 [Sinemet 25-100 mg] atenoloL 25 mg PO DAILY@0800 05/16/20 07/11/20 ondansetron HCL [Zofran] 4 mg PO Q6H PRN 05/16/20 07/11/20 amantadine HCL [Symmetrel] 100 mg PO BID@0800,1700 05/30/20 07/11/20 Omeprazole [PriLOSEC] 20 mg PO DAILY 07/11/20 07/11/20 QUEtiapine [SEROquel] 25 mg PO DAILY 07/11/20 07/11/20 Previous Rx's Medication Instructions Recorded Acetaminophen Tab [Tylenol] 500 mg PO Q6HR PRN tab 05/21/20 QUEtiapine [SEROquel] 50 mg PO HS tab 06/04/20 Folic Acid 1 mg PO DAILY@1200 tab 07/12/20 Multivitamins, Thera [Multivitamin 1 each PO DAILY@1200 tab 07/12/20 (formulary)] Thiamine [Vitamin B-1] 100 mg PO DAILY@1200 tab 07/12/20 clonazePAM 0.25 mg PO BID PRN #60 tab 07/12/20 rOPINIRole HCL [Requip] 2 mg PO TID@0800,1200,1700 #90 tab 07/12/20 Allergies Allergy/AdvReac Type Severity Reaction Status Date / Time No Known Allergies Allergy Verified 07/11/20 14:38 Review of Systems ROS Statement: Those systems with pertinent positive or pertinent negative responses have been documented in the HPI. ROS Other: All systems not noted in ROS Statement are negative. Past Medical History Past Medical History: Asthma, GERD/Reflux, Hypertension, Neurologic Disorder, Pneumonia, Renal Disease, Skin Disorder, Sleep Apnea/CPAP/BIPAP Additional Past Medical History / Comment(s): Parkinson's disease, essential tremors, gastroparesis, nausea on and off for years, hyponatremia with 2ndary metabolic encephalopathy, renal insufficiency, MIRIAM-unable to tolerate device, bronchitis, chronic low back pain, migraines, constipation, RLS, past serotonin rigidity, anemia, R great toe infection. History of Any Multi-Drug Resistant Organisms: None Reported Past Surgical History: Cholecystectomy, Heart Catheterization, Tubal Ligation Additional Past Surgical History / Comment(s): EGD, colonoscopy, deviated septal surgery, bilateral cataract removals. Past Anesthesia/Blood Transfusion Reactions: No Reported Reaction Past Psychological History: Anxiety, Depression, Panic Disorder Smoking Status: Former smoker - Past Family History Mother Additional Family Medical History / Comment(s): during rh incompatibility Father Family Medical History: CVA/TIA General Exam Limitations: no limitations General appearance: alert, in no apparent distress Head exam: Present: atraumatic, normocephalic, normal inspection Respiratory exam: Present: normal lung sounds bilaterally. Absent: respiratory distress, wheezes, rales, rhonchi, stridor Cardiovascular Exam: Present: regular rate, normal rhythm, normal heart sounds. Absent: systolic murmur, diastolic murmur, rubs, gallop, clicks Extremities exam: Present: other (Tenderness to palpation over the right greater trochanter) Neurological exam: Present: alert, oriented X3, CN II-XII intact Psychiatric exam: Present: normal affect, normal mood Skin exam: Present: other (3 cm skin tear to the dorsal aspect of the right hand and 5 cm skin tear to the dorsal aspect of the right forearm with Steri-Strips in place. No active bleeding.) Course Vital Signs 02/17/23 02/17/23 00:45 02:47 Temperature 97.8 F Pulse Rate 56 L 60 Respiratory 16 16 Rate Blood Pressure 165/76 144/68 O2 Sat by Pulse 98 98 Oximetry Medical Decision Making - Medical Decision Making This is a 77-year-old female who presents to the emergency department for a fall. Was pt. sent in by a medical professional or institution? @ -No Did you speak to anyone other than the patient for history? @ -No Did you review nursing and triage notes? @ -Yes, and I agree, it is accurate with regards to the patient's symptoms. Were old charts reviewed? @ -No Differential Diagnosis? @ -Differential Hip Pain: Fracture, dislocation, contusion, this is not meant to be an all-inclusive list. X-rays interpreted by me (1pt min.)? @ -X-ray of the right hand and forearm obtained. My interpretation identifies no acute fractures or dislocations. CT interpreted by me (1pt min.)? @ -Computed tomography scan of the chest, abdomen, and pelvis obtained. My interpretation identifies no acute rib fractures, lumbar spine fractures, or pelvic fractures. What testing was considered but not performed? (CT, X-rays, U/S, labs)? Why? @ -None What meds were considered but not given? Why? @ -None Did you discuss the management of the patient with other professionals? @ -No Did you reconcile home meds? @ -No Was smoking cessation discussed for >3mins.? @ -No Was critical care preformed (if so, how long)? @ -No Were there social determinants of health that impacted care today? How? (Homelessness, low income, unemployed, alcoholism, drug addiction, transportation, low edu. Level, literacy, decrease access to med. care, half-way, rehab)? @ -No Was there de-escalation of care discussed even if they declined? (Discuss DNR or withdrawal of care, Hospice)? @ -No What co-morbidities impacted this encounter? (DM, HTN, Smoking, COPD, CAD, Cancer, CVA, Hep., AIDS, mental health diagnosis, sleep apnea, morbid obesity)? @ -Parkinson's, OA Was patient admitted / discharged? @ -Discharged. Computed tomography scan of the chest, abdomen, and pelvis obtained revealing no acute findings. X-rays of the right hand and forearm obtained as well, also revealing no acute abnormalities. Patient's tetanus status was updated due to the skin tears. The skin tears still had the flaps of skin attached and were closed with the edges well approximated with Steri- Strips. These were left intact and it was discussed with the patient that the skin tears can continue to be closed with Steri-Strips at [facility]. Otherwise advised ibuprofen and Tylenol as needed for any discomfort. Undiagnosed new problem with uncertain prognosis? @ -None Drug Therapy requiring intensive monitoring for toxicity (Heparin, Nitro, Insulin, Cardizem)? @ -None Were any procedures done? @ -None Diagnosis/symptom? @ -Fall, skin tear Acute, or Chronic, or Acute on Chronic? @ -Acute Uncomplicated (without systemic symptoms) or Complicated (systemic symptoms)? @ -Uncomplicated Side effects of treatment? @ -None Exacerbation, Progression, or Severe Exacerbation] @ -Not applicable Poses a threat to life or bodily function? @ -No Return precautions reviewed in depth, the patient is instructed to return to the emergency department with any new, worsening, or concerning symptoms. Patient verbalized understanding. This case was discussed in detail with the attending ED physician, Dr. Beebe. Presentation, findings, and treatment plan discussed in detail as well. - Radiology Data Radiology results: report reviewed, image reviewed Disposition Clinical Impression: Fall, Skin tear of right upper arm without complication Disposition: HOME SELF-CARE Instructions (If sedation given, give patient instructions): Fall Prevention for Older Adults (ED), Skin Tear (ED) Additional Instructions: Return to the emergency department with any new, worsening, or concerning symptoms. Alternate with ibuprofen and Tylenol as needed for pain relief. Make sure that you move very slowly to reduce your risk of falls in the future. Continue to use Steri-Strips to close the skin tears until they heal. Follow up with your primary care provider in 1-2 days. Is patient prescribed a controlled substance at d/c from ED?: No Referrals: Chacho Rai MD [Primary Care Provider] - 1-2 days
[2023-02-17] MEDS ORDERED: DIPH,PERTUS(ACELL)TETVAC-LF 0.5 ML VIAL IM ONE (01:15)
--- NOTE | 2023-02-17 01:46 | CT ---
EXAMINATION TYPE: CT ChestAbdPelvis wo con DATE OF EXAM: 02/17/2023 COMPARISON: None HISTORY: FALL, BACK, RIB & HIP PAIN. CT DLP: 789.9 mGycm Automated exposure control for dose reduction was used. Images obtained from the thoracic inlet to the floor the pelvis without contrast. The lungs are clear of consolidation. There is minimal pleural thickening at the lateral left lung ba se. Heart is enlarged. There is minimal atelectasis right middle lobe. No pleural effusion or pneumot horax. There are no hilar masses. There is no mediastinal adenopathy. Liver spleen stomach and pancreas appear intact. The bile ducts are not dilated. There is no adrenal mass. Kidneys have normal size. There is multiple bilateral renal cortical cysts that measure up to 3 .5 cm. No hydronephrosis. No retroperitoneal adenopathy. Ureters are nondilated. Bladder distends smo othly. No inguinal hernia. No pelvic mass. There is no free fluid in the pelvis. There are multiple s igmoid diverticula. No diverticulitis. Appendix is posterior and appears normal. There is mild thoracic dextroscoliosis and lumbar levoscoliosis. There is a mild degenerative first-d egree L4-5 spondylolisthesis. There is T8 anterior wedging 25% that appears old. There is coarse trab eculae consistent with a hemangioma in the T7 vertebral body. Sternum is intact. The bony pelvis is i ntact. The hip joints are intact. Sacroiliac joints are intact. No evidence of rib fracture. Shoulder joints are intact. IMPRESSION: There is T8 mild compression fracture. Fracture not significantly different than old chest x-ray of . Numerous renal cortical cysts. No renal obstruction. Normal appendix. Thoracic and lumbar scoliotic deformity. No acute fracture seen. sigmoid diverticulosis.
--- NOTE | 2023-02-17 01:49 | XR ---
EXAMINATION TYPE: XR hand limited RT DATE OF EXAM: 02/17/2023 COMPARISON: NONE HISTORY: Pain. Fall TECHNIQUE: 2 views FINDINGS: The metacarpals are intact. Carpal bones are intact. There is minor spurring at the first c arpometacarpal joint. There is some spurring at the distal radial ulnar joint. No definite radius fra cture. There is narrowing of the scaphoid trapezium joint. IMPRESSION: There is some mild degenerative changes at the base of the thumb. No fracture seen.
--- NOTE | 2023-02-17 01:50 | XR ---
EXAMINATION TYPE: XR forearm RT DATE OF EXAM: 02/17/2023 COMPARISON: NONE HISTORY: Pain. Fall. TECHNIQUE: 2 views FINDINGS: I see no fracture or dislocation. Radius and ulna appear intact. Elbow joint is intact. Rad iocarpal joint is intact. IMPRESSION: No acute abnormality of the right forearm.
[2023-02-17 02:48] VITALS: BP 144/68; PULSE 60
== END 2023-02-17 02:48 | disposition home or self-care (01) ==
LOC: EC 00:32
DX: S61.411A Laceration without foreign body of right hand, initial encounter (principal); S51.811A Laceration without foreign body of right forearm, initial encounter; Z23 Encounter for immunization; J45.909 Unspecified asthma, uncomplicated; I10 Essential (primary) hypertension; K21.9 Gastro-esophageal reflux disease without esophagitis; F32.A Depression, unspecified; Z90.49 Acquired absence of other specified parts of digestive tract; Z95.5 Presence of coronary angioplasty implant and graft; Z98.51 Tubal ligation status; Z79.899 Other long term (current) drug therapy; Z87.891 Personal history of nicotine dependence; W18.30XA Fall on same level, unspecified, initial encounter; Y93.89 Activity, other specified; Y92.89 Other specified places as the place of occurrence of the external cause
CPT/HCPCS: 71250; 74176; 90471; 90715; 99284

== ENCOUNTER 2023-12-24 08:36 | Emergency (ER) | payer MEDICARE, BC ==
[2023-12-24 08:43] VITALS: RESP 18; TEMP 97
--- NOTE | 2023-12-24 08:51 | ED ---
General Adult HPI - General Chief complaint: Fall Stated complaint: Back pain Time Seen by Provider: 12/24/23 08:38 Source: patient, EMS, RN notes reviewed Mode of arrival: EMS Limitations: no limitations - History of Present Illness Initial comments: Patient is a pleasant 78-year-old female presenting to the emergency department with fall. Incident occurred 2 days ago. Patient denies head injury or loss of consciousness. Patient states she just lost her balance, which does happen to her frequently. Patient complains of lower back discomfort. Patient denies neck or upper back pain. No hip pain. Patient did have x-rays done however cervical spine x-rays did not show the lower cervical spine. Patient denies any weakness. No loss of sensation. - Related Data Home Medications Medication Instructions Recorded Confirmed Carbidopa-Levodopa 25-100 mg 2 tab PO TID@0800,1200,1700 05/16/20 07/11/20 [Sinemet 25-100 mg] atenoloL 25 mg PO DAILY@0800 05/16/20 07/11/20 ondansetron HCL [Zofran] 4 mg PO Q6H PRN 05/16/20 07/11/20 amantadine HCL [Symmetrel] 100 mg PO BID@0800,1700 05/30/20 07/11/20 Omeprazole [PriLOSEC] 20 mg PO DAILY 07/11/20 07/11/20 QUEtiapine [SEROquel] 25 mg PO DAILY 07/11/20 07/11/20 Previous Rx's Medication Instructions Recorded Acetaminophen Tab [Tylenol] 500 mg PO Q6HR PRN tab 05/21/20 QUEtiapine [SEROquel] 50 mg PO HS tab 06/04/20 Folic Acid 1 mg PO DAILY@1200 tab 07/12/20 Multivitamins, Thera [Multivitamin 1 each PO DAILY@1200 tab 07/12/20 (formulary)] Thiamine [Vitamin B-1] 100 mg PO DAILY@1200 tab 07/12/20 clonazePAM 0.25 mg PO BID PRN #60 tab 07/12/20 rOPINIRole HCL [Requip] 2 mg PO TID@0800,1200,1700 #90 tab 07/12/20 Allergies Allergy/AdvReac Type Severity Reaction Status Date / Time No Known Allergies Allergy Verified 12/24/23 08:44 Review of Systems ROS Statement: Those systems with pertinent positive or pertinent negative responses have been documented in the HPI. ROS Other: All systems not noted in ROS Statement are negative. Constitutional: Denies: fever Eyes: Denies: eye pain ENT: Denies: ear pain Respiratory: Denies: cough Cardiovascular: Denies: chest pain Endocrine: Denies: fatigue Gastrointestinal: Denies: abdominal pain Genitourinary: Denies: dysuria Musculoskeletal: Reports: as per HPI Neurological: Denies: headache, weakness, confusion Past Medical History Past Medical History: Asthma, GERD/Reflux, Hypertension, Neurologic Disorder, Pneumonia, Renal Disease, Skin Disorder, Sleep Apnea/CPAP/BIPAP Additional Past Medical History / Comment(s): Parkinson's disease, essential tremors, gastroparesis, nausea on and off for years, hyponatremia with 2ndary metabolic encephalopathy, renal insufficiency, MIRIAM-unable to tolerate device, bronchitis, chronic low back pain, migraines, constipation, RLS, past serotonin rigidity, anemia, R great toe infection. History of Any Multi-Drug Resistant Organisms: None Reported Past Surgical History: Cholecystectomy, Heart Catheterization, Tubal Ligation Additional Past Surgical History / Comment(s): EGD, colonoscopy, deviated septal surgery, bilateral cataract removals. Past Anesthesia/Blood Transfusion Reactions: No Reported Reaction Past Psychological History: Anxiety, Depression, Panic Disorder Smoking Status: Former smoker Past Alcohol Use History: None Reported Past Drug Use History: None Reported - Past Family History Mother Additional Family Medical History / Comment(s): during rh incompatibility Father Family Medical History: CVA/TIA General Exam Limitations: no limitations General appearance: alert, in no apparent distress Head exam: Present: normocephalic Eye exam: Present: normal appearance Neck exam: Present: normal inspection, full ROM. Absent: tenderness Respiratory exam: Present: normal lung sounds bilaterally Cardiovascular Exam: Present: regular rate, normal rhythm GI/Abdominal exam: Present: soft. Absent: tenderness Extremities exam: Present: normal inspection, full ROM. Absent: tenderness Back exam: Present: tenderness (Mild tenderness diffuse lumbar spine) Neurological exam: Present: alert. Absent: motor sensory deficit Expanded Sensory exam: Upper Extremity Light Touch: Normal, Lower Extremity Light Touch: Normal Motor strength exam: RUE: 5, LUE: 5, RLE: 5, LLE: 5 Psychiatric exam: Present: normal affect, normal mood Skin exam: Present: normal color Course Vital Signs 12/24/23 12/24/23 08:37 10:10 Temperature 97 F L Pulse Rate 60 57 L Respiratory 18 18 Rate Blood Pressure 154/79 135/85 O2 Sat by Pulse 96 96 Oximetry Medical Decision Making - Medical Decision Making Was pt. sent in by a medical professional or institution (, [facility], [employer], urgent care, hospital, or penitentiary...) When possible be specific @ -Patient sent from nursing facility Did you speak to anyone other than the patient for history (EMS, parent, family, police, friend...)? What history was obtained from this source @ -No Did you review nursing and triage notes (agree or disagree)? Why? @ -Nursing facility chart reviewed Were old charts reviewed (outside hosp., previous admission, EMS record, old EKG, old radiological studies, urgent care reports/EKG's, penitentiary records)? Report findings @ -No old charts were reviewed Differential Diagnosis (chest pain, altered mental status, abdominal pain women, abdominal pain men, vaginal bleeding, weakness, fever, dyspnea, syncope, headache, dizziness, GI bleed, back pain, seizure, CVA, palpatations, mental health, musculoskeletal)? @ -Differential Musculoskeletal Muscular strain, contusion, ligament sprain, fracture, arthritis, septic arthritis, bursitis, cellulitis, muscle spasm, nerve compression, DVT, arterial occlusion, herpes zoster, electrolyte abnormality, tumor.... This is not meant to be in all inclusive list EKG interpreted by me (3pts min.). @ -As above X-rays interpreted by me (1pt min.). @ -Cervical spine and lumbar spine x-rays without acute fracture CT interpreted by me (1pt min.). @ -None done U/S interpreted by me (1pt. min.). @ -None done What testing was considered but not performed or refused? (CT, X-rays, U/S, labs)? Why? @ -None What meds were considered but not given or refused? Why? @ -None Did you discuss the management of the patient with other professionals (pro fessionals i.e. , BLESS[employer], [employer], lab, RT, psych nurse, social psychologist, financial examiner, teacher, [employer] revenue officer, case work aide)? Give summary @ -No Was smoking cessation discussed for >3mins.? @ -No Was critical care preformed (if so, how long)? @ -No Were there social determinants of health that impacted care today? How? (Homelessness, low income, unemployed, alcoholism, drug addiction, transportation, low edu. Level, literacy, decrease access to med. care, longterm, rehab)? @ -No Was there de-escalation of care discussed even if they declined (Discuss DNR or withdrawal of care, Hospice)? DNR status @ -No What co-morbidities impacted this encounter? (DM, HTN, Smoking, COPD, CAD, Cancer, CVA, ARF, Chemo, Hep., AIDS, mental health diagnosis, sleep apnea, morbid obesity)? @ -None Was patient admitted / discharged? Hospital course, mention meds given and route, prescriptions, significant lab abnormalities, going to OR and other pertinent info. @ -Patient reevaluated and resting comfortably in bed. Patient does not feel she needs any medication for pain or discomfort. Patient is updated on results and plan. Patient will be discharged. Undiagnosed new problem with uncertain prognosis? @ -No Drug Therapy requiring intensive monitoring for toxicity (Heparin, Nitro, Insulin, Cardizem)? @ -No Were any procedures done? @ -No Diagnosis/symptom? @ -Lumbar strain Acute, or Chronic, or Acute on Chronic? @ -Acute Uncomplicated (without systemic symptoms) or Complicated (systemic symptoms)? @ -Default Side effects of treatment? @ -No Exacerbation, Progression, or Severe Exacerbation? @ -No Poses a threat to life or bodily function? How? (Chest pain, [place], [place], pneumonia, PE, COPD, DKA, ARF, appy, cholecystitis, CVA, Diverticulitis, Homicidal, Suicidal, threat to staff... and all critical care pts) @ -No Disposition Clinical Impression: Fall, Lumbar strain Disposition: HOME SELF-CARE Condition: Stable Instructions (If sedation given, give patient instructions): Fall Prevention for Older Adults (ED), Low Back Strain (ED) Additional Instructions: Please do follow-up with primary care physician in the next day or 2 for recheck. Return for increased pain, weakness, worsening or changing symptoms or any other concerns. [id number] Tylenol if needed. Is patient prescribed a controlled substance at d/c from ED?: No Referrals: Chacho Rai MD [Primary Care Provider] - 1-2 days Time of Disposition: 10:49
--- NOTE | 2023-12-24 09:58 | XR ---
EXAMINATION TYPE: XR lumbosacral spine min 4V DATE OF EXAM: 12/24/2023 CLINICAL HISTORY: pain COMPARISON: NONE TECHNIQUE: Frontal, lateral, and oblique images of the lumbar spine are obtained. FINDINGS: There are 5 lumbar type vertebral bodies identified. The lumbar spine shows satisfactory alignment without evidence of acute fracture or dislocation. Vertebral body heights are within normal limits. Severe degenerative disc disease at all levels. Grade 1 anterolisthesis L4 and L5 of 9.3 mm. There is curvature noted convex to the left with rotoscoliosis seen. The overlying soft tissue appe ars unremarkable. IMPRESSION: No acute fracture or dislocation is seen in the lumbar spine.ICD 10 NO FRACTURE, INITIAL EVALUATION
--- NOTE | 2023-12-24 09:59 | XR ---
EXAMINATION TYPE: XR cervical spine comp DATE OF EXAM: 12/24/2023 CLINICAL HISTORY: pain COMPARISON: NONE TECHNIQUE: Frontal, lateral, oblique, swimmers, and open mouth view of the cervical spine are obtaine d. FINDINGS: The cervical spine is visualized in its entirety from C1 thru the top of T1 level. It is s atisfactory in alignment without evidence of acute fracture or dislocation. The pre-vertebral soft t issue appears within normal limits. Mild degenerative disc disease noted and spondylosis. The C1-C2 a rticulation is unremarkable on the open mouth view. The oblique images are within normal limits. IMPRESSION: No acute fracture or dislocation is seen in the cervical spine.ICD 10 NO FRACTURE, INITI AL EVALUATION
[2023-12-24 10:12] VITALS: BP 135/85; PULSE 57
== END 2023-12-24 11:29 | disposition home or self-care (01) ==
LOC: EC 08:36
DX: S39.012A Strain of muscle, fascia and tendon of lower back, initial encounter (principal); J45.909 Unspecified asthma, uncomplicated; I10 Essential (primary) hypertension; G47.30 Sleep apnea, unspecified; K21.9 Gastro-esophageal reflux disease without esophagitis; F41.9 Anxiety disorder, unspecified; F31.9 Bipolar disorder, unspecified; Z87.891 Personal history of nicotine dependence; Z79.899 Other long term (current) drug therapy; W19.XXXA Unspecified fall, initial encounter
CPT/HCPCS: 72050; 72110; 99284

== ENCOUNTER 2024-02-21 19:01 | Emergency (ER) | payer MEDICARE, BC ==
--- NOTE | 2024-02-21 19:30 | ED ---
Fall HPI - General Chief Complaint: Fall Stated Complaint: Syncope and Collapse, R Hip Pain Time Seen by Provider: 02/21/24 19:11 Source: patient, EMS Mode of arrival: EMS - History of Present Illness Initial Comments: 78-year-old female with history of Parkinson's presenting for evaluation post fall. Patient states that she got up to get something off of the table and then turned around quickly to return to her seat. States that she felt that she was off balance and fell. She does admit to head injury. She states that she may have had some loss of consciousness. No blood thinners. She does admit to some right hip pain that is worse with weightbearing. Henry on the leg nurse told EMS that the patient did lose consciousness and she was hypotensive. At the time of EMS arrival the patient's blood pressure was 130/68. She is having no headache, neck pain, vision or hearing changes, numbness, tingling, weakness, chest pain, difficulty breathing, nausea, vomiting, dizziness. - Related Data Home Medications Medication Instructions Recorded Confirmed Carbidopa-Levodopa 25-100 mg 2 tab PO TID@0800,1200,1700 05/16/20 07/11/20 [Sinemet 25-100 mg] atenoloL 25 mg PO DAILY@0800 05/16/20 07/11/20 ondansetron HCL [Zofran] 4 mg PO Q6H PRN 05/16/20 07/11/20 amantadine HCL [Symmetrel] 100 mg PO BID@0800,1700 05/30/20 07/11/20 Omeprazole [PriLOSEC] 20 mg PO DAILY 07/11/20 07/11/20 QUEtiapine [SEROquel] 25 mg PO DAILY 07/11/20 07/11/20 Previous Rx's Medication Instructions Recorded Acetaminophen Tab [Tylenol] 500 mg PO Q6HR PRN tab 05/21/20 QUEtiapine [SEROquel] 50 mg PO HS tab 06/04/20 Folic Acid 1 mg PO DAILY@1200 tab 07/12/20 Multivitamins, Thera [Multivitamin 1 each PO DAILY@1200 tab 07/12/20 (formulary)] Thiamine [Vitamin B-1] 100 mg PO DAILY@1200 tab 07/12/20 clonazePAM 0.25 mg PO BID PRN #60 tab 07/12/20 rOPINIRole HCL [Requip] 2 mg PO TID@0800,1200,1700 #90 tab 07/12/20 Allergies Allergy/AdvReac Type Severity Reaction Status Date / Time oxycodone AdvReac Rapid Verified 02/21/24 19:11 Heart Rate Review of Systems ROS Statement: Those systems with pertinent positive or pertinent negative responses have been documented in the HPI. ROS Other: All systems not noted in ROS Statement are negative. Past Medical History Past Medical History: Asthma, GERD/Reflux, Hypertension, Neurologic Disorder, Pneumonia, Renal Disease, Skin Disorder, Sleep Apnea/CPAP/BIPAP Additional Past Medical History / Comment(s): Parkinson's disease, essential tremors, gastroparesis, nausea on and off for years, hyponatremia with 2ndary metabolic encephalopathy, renal insufficiency, MIRIAM-unable to tolerate device, bronchitis, chronic low back pain, migraines, constipation, RLS, past serotonin rigidity, anemia, R great toe infection. History of Any Multi-Drug Resistant Organisms: None Reported Past Surgical History: Cholecystectomy, Heart Catheterization, Tubal Ligation Additional Past Surgical History / Comment(s): EGD, colonoscopy, deviated septal surgery, bilateral cataract removals. Past Anesthesia/Blood Transfusion Reactions: No Reported Reaction Past Psychological History: Anxiety, Depression, Panic Disorder Smoking Status: Former smoker Past Alcohol Use History: None Reported Past Drug Use History: None Reported - Past Family History Mother Additional Family Medical History / Comment(s): during rh incompatibility Father Family Medical History: CVA/TIA General Exam Limitations: no limitations General appearance: alert, in no apparent distress Head exam: Present: atraumatic, normocephalic Eye exam: Present: EOMI Pupils: Present: normal accommodation Neck exam: Present: normal inspection Respiratory exam: Present: normal lung sounds bilaterally. Absent: respiratory distress, wheezes, rales, rhonchi, stridor Cardiovascular Exam: Present: regular rate, normal rhythm, normal heart sounds. Absent: systolic murmur, diastolic murmur, rubs, gallop, clicks Neurological exam: Present: alert, oriented X3 Expanded Cranial nerves: EOM's Intact: Normal Motor strength exam: RUE: 5, LUE: 5, RLE: 5, LLE: 5 Eye Response: (4) open spontaneously Motor Response: (6) obeys commands Verbal Response: (5) oriented Rosas Total: 15 Psychiatric exam: Present: normal affect, normal mood Skin exam: Present: warm, dry Course Vital Signs 02/21/24 02/21/24 19:05 21:56 Pulse Rate 71 57 L Respiratory 14 16 Rate Blood Pressure 152/81 143/85 O2 Sat by Pulse 93 L 98 Oximetry Medical Decision Making - Medical Decision Making Was pt. sent in by a medical professional or institution (, [facility]ESS[facility], CLASSIFIER, urgent care, hospital, or snf...) When possible be specific @ -No Did you speak to anyone other than the patient for history (EMS, parent, family, police, friend...)? What history was obtained from this source @ -EMS Did you review nursing and triage notes (agree or disagree)? Why? @ -I reviewed and agree with nursing and triage notes Were old charts reviewed (outside hosp., previous admission, EMS record, old EKG, old radiological studies, urgent care reports/EKG's, snf records)? Report findings @ -No old charts were reviewed Differential Diagnosis (chest pain, altered mental status, abdominal pain women, abdominal pain men, vaginal bleeding, weakness, fever, dyspnea, syncope, hea dache, dizziness, GI bleed, back pain, seizure, CVA, palpatations, mental health, musculoskeletal)? @ -Differential includes uncomplicated head injury, concussion, intracranial hemorrhage, fracture, this is not an all-inclusive list EKG interpreted by me (3pts min.). @ -As above X-rays interpreted by me (1pt min.). @ -X-ray of the right hip and pelvis shows no evidence for acute process and mi ld hip osteoarthrosis CT interpreted by me (1pt min.). @ -CT shows no acute intracranial process. Nonspecific white matter changes likely secondary to chronic small vessel ischemic disease. No evidence of cervical spine fracture. Moderate multilevel degenerative disc disease U/S interpreted by me (1pt. min.). @ -None done What testing was considered but not performed or refused? (CT, X-rays, U/S, labs)? Why? @ -None What meds were considered but not given or refused? Why? @ -None Did you discuss the management of the patient with other professionals (professionals i.e. , PA, CLASSIFIER, lab, RT, psych nurse, social services analyst, gripper installer, teacher, general service officer, case mgr)? Give summary @ -No Was smoking cessation discussed for >3mins.? @ -No Was critical care preformed (if so, how long)? @ -No Were there social determinants of health that impacted care today? How? (Homelessness, low income, unemployed, alcoholism, drug addiction, transportation, low edu. Level, literacy, decrease access to med. care, retirement, rehab)? @ -No Was there de-escalation of care discussed even if they declined (Discuss DNR or withdrawal of care, Hospice)? DNR status @ -No What co-morbidities impacted this encounter? (DM, HTN, Smoking, COPD, CAD, Cancer, CVA, ARF, Chemo, Hep., AIDS, mental health diagnosis, sleep apnea, morbid obesity)? @ -None Was patient admitted / discharged? Hospital course, mention meds given and route, prescriptions, significant lab abnormalities, going to OR and other pertinent info. @ -78-year-old female presenting for evaluation post fall at her snf. She did hit her head. She did lose consciousness. No blood thinners. She is also complaining of some right hip pain worse with weightbearing. C-collar was applied by EMS. History and physical exam are conducted. GCS 15. Negative CT of the brain and cervical spine and negative x-ray of the right hip and pelvis. Patient is resting comfortably showing no acute signs of distress. Discharged home. Follow-up with PCP. Report back to ER with any new or worsening symptoms. Discussed return parameters and answered all questions. Patient conveyed verbal understanding and agreed to the plan. I discussed this case in detail with my attending Dr. Cardona Undiagnosed new problem with uncertain prognosis? @ -No Drug Therapy requiring intensive monitoring for toxicity (Heparin, Nitro, Insulin, Cardizem)? @ -No Were any procedures done? @ -No Diagnosis/symptom? @ -Fall, head injury Acute, or Chronic, or Acute on Chronic? @ -Acute Uncomplicated (without systemic symptoms) or Complicated (systemic symptoms)? @ -Uncomplicated Side effects of treatment? @ -No Exacerbation, Progression, or Severe Exacerbation? @ -No Poses a threat to life or bodily function? How? (Chest pain, [place], [place], pneumonia, PE, COPD, DKA, ARF, appy, cholecystitis, CVA, Diverticulitis, Homicidal, Suicidal, threat to staff... and all critical care pts) @ -Unlikely Disposition Clinical Impression: Fall, Head injury Disposition: HOME SELF-CARE Condition: Good Instructions (If sedation given, give patient instructions): Fall Prevention for Older Adults (ED), Head Injury (ED) Additional Instructions: Follow-up with PCP. Report back to ER with any new or worsening symptoms. Is patient prescribed a controlled substance at d/c from ED?: No Referrals: Chacho Rai MD [Primary Care Provider] - 1-2 days Time of Disposition: 21:53
--- NOTE | 2024-02-21 20:42 | CT ---
EXAMINATION TYPE: CT brain cspine wo con CT DLP: 1457.4 mGycm, Automated exposure control for dose reduction was used. DATE OF EXAM: 02/21/2024 8:03 PM COMPARISON: 07/12/2020 CLINICAL INDICATION:Female, 78 years old with history of fall; dizziness/fall TECHNIQUE: Brain: Multiple axial CT images of the brain were obtained without IV contrast. Cspine: Axial CT images from the skull base to the inferior aspect of T2 we obtained without intraven ous contrast. Coronal and sagittal reformatted images were also reviewed. FINDINGS: Brain: Extra-axial spaces: No abnormal extra-axial fluid collections. Ventricular system: Dilatation in proportion to cerebral atrophy. Cerebral parenchyma: Cerebral atrophy. No acute intraparenchymal hemorrhage or mass effect. The curtis -white junction is well differentiated. Scattered hypoattenuating areas are seen within the white mat ter. Cerebellum: Unremarkable. Mass effect: No evidence of midline shift. Intracranial vasculature: Atherosclerotic calcifications of the intracranial vessels. Soft tissues: Normal. Calvarium/osseous structures: No depressed skull fracture. Paranasal sinuses and mastoid air cells: Clear. Visualized orbits: Orbital contents are intact. Cervical spine: Fracture: None. Osseous structures: Multilevel degenerative disc disease changes with endplate spurring and disc oste ophyte complex's. Vertebral alignment: Within normal limits. Spinal canal/Neural Foramina: No evidence of significant spinal canal narrowing. No evidence for sign ificant neural foraminal stenosis. Neck soft tissues: Prevertebral soft tissues are within normal limits. Left thyroid nodule measuring up to 1.8 x 1.1 cm. Other: The airway is patent. The lung apices are clear. Atherosclerosis of the bilateral carotid bifu rcations. IMPRESSION: 1. No acute intracranial process. 2. Nonspecific white matter changes, likely secondary to chronic small vessel ischemic disease. 3. No evidence of cervical spine fracture. 4. Moderate multilevel degenerative disc disease.
--- NOTE | 2024-02-21 21:40 | XR ---
EXAMINATION TYPE: XR Hip RT and AP Pelvis DATE OF EXAM: 02/21/2024 9:16 PM CLINICAL INDICATION:Female, 78 years old with history of fall; COMPARISON: None. TECHNIQUE: XR Hip RT and AP Pelvis; hip was examined in the frontal and lateral projections and a AP pelvis. FINDINGS: No evidence for acute process, joint dislocation or significant soft tissue swelling. Osteo phyte formation of the superior acetabulum of the hip. IMPRESSION: 1. No evidence for acute process. 2. Mild hip osteoarthrosis.
[2024-02-21 22:30] VITALS: BP 143/85; PULSE 57; RESP 16
== END 2024-02-21 23:08 | disposition home or self-care (01) ==
LOC: EC 19:01
DX: S09.90XA Unspecified injury of head, initial encounter (principal); Z88.8 Allergy status to other drugs, medicaments and biological substances; Z87.891 Personal history of nicotine dependence; W01.0XXA Fall on same level from slipping, tripping and stumbling without subsequent striking against object, initial encounter
CPT/HCPCS: 70450; 72125; 73502; 99285

== ENCOUNTER 2024-12-03 20:17 | Emergency (ER) | payer MEDICARE, BC ==
[2024-12-03 20:35] VITALS: TEMP 98.4
[2024-12-03 21:51] LABS: Basophils % (A) 0 %; Eosinophils # (A) 0.2 k/uL (0-0.7); Eosinophils % (A) 3 %; HCT 36.1 % (34.0-46.0); HGB 11.6 gm/dL (11.4-16.0); Lymphocytes # (A) 1.8 k/uL (1.0-4.8); Lymphocytes % (A) 22 %; MCH 30.2 pg (25.0-35.0); MCHC 32.1 g/dL (31.0-37.0); MCV 94.1 fL (80.0-100.0); Monocytes # (A) 0.6 k/uL (0-1.0); Monocytes % (A) 7 %; Neutrophils # (A) 5.4 k/uL (1.3-7.7); Neutrophils % (A) 66 %; Platelet Count 308 k/uL (150-450); RBC 3.83 m/uL (3.80-5.40); RDW 14.7 % (11.5-15.5); WBC 8.2 k/uL (3.8-10.6)
[2024-12-03 22:04] LABS: INR 1.1 (<1.2); Partial Thromboplastin Time 24.7 sec (22.0-30.0); Prothrombin Time 11.7 sec (10.0-12.5)
--- NOTE | 2024-12-03 22:09 | ED ---
Fall HPI - General Chief Complaint: Fall Stated Complaint: Fall Time Seen by Provider: 12/03/24 20:33 Source: patient, EMS, RN notes reviewed Mode of arrival: EMS Limitations: physical limitation - History of Present Illness Initial Comments: This is an 79-year-old female with history of Parkinson's and renal disease presenting from [facility] via EMS for fall out of bed x 1 hour prior. EMS states patient was unattended for 5 minutes when she was discovered on the floor next to her bed, having ruled out, striking the right side of her head. Staff and patient are unsure of possible loss of consciousness. Patient endorses generalized pain with no acute pain in any 1 location. Denies use of blood thinners. Denies dizziness, vision change, headache, nausea/vomiting. 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 Witnessed: no Place Fall Occurred: senior living/SNF Loss of Consciousness: unsure Prolonged Down Time?: minute(s) (Less than 5 minutes) Symptoms Prior to Fall: none Location: head, neck, chest, pelvis Location - Extremities: Left: Thigh, Knee, Leg - Related Data Home Medications Medication Instructions Recorded Confirmed Carbidopa-Levodopa 25-100 mg 2 tab PO TID@0800,1200,1700 05/16/20 07/11/20 [Sinemet 25-100 mg] atenoloL 25 mg PO DAILY@0800 05/16/20 07/11/20 ondansetron HCL [Zofran] 4 mg PO Q6H PRN 05/16/20 07/11/20 amantadine HCL [Symmetrel] 100 mg PO BID@0800,1700 05/30/20 07/11/20 Omeprazole [PriLOSEC] 20 mg PO DAILY 07/11/20 07/11/20 QUEtiapine [SEROquel] 25 mg PO DAILY 07/11/20 07/11/20 Previous Rx's Medication Instructions Recorded Acetaminophen Tab [Tylenol] 500 mg PO Q6HR PRN tab 05/21/20 QUEtiapine [SEROquel] 50 mg PO HS tab 06/04/20 Folic Acid 1 mg PO DAILY@1200 tab 07/12/20 Multivitamins, Thera [Multivitamin 1 each PO DAILY@1200 tab 07/12/20 (formulary)] Thiamine [Vitamin B-1] 100 mg PO DAILY@1200 tab 07/12/20 clonazePAM 0.25 mg PO BID PRN #60 tab 07/12/20 rOPINIRole HCL [Requip] 2 mg PO TID@0800,1200,1700 #90 tab 07/12/20 Nystatin [Nystatin Oral Susp] 5 unit PO BID #120 ml 12/03/24 Allergies Allergy/AdvReac Type Severity Reaction Status Date / Time oxycodone AdvReac Rapid Verified 12/03/24 20:37 Heart Rate Review of Systems ROS Statement: Those systems with pertinent positive or pertinent negative responses have been documented in the HPI. ROS Other: All systems not noted in ROS Statement are negative. Past Medical History Past Medical History: Asthma, GERD/Reflux, Hypertension, Neurologic Disorder, Pneumonia, Renal Disease, Skin Disorder, Sleep Apnea/CPAP/BIPAP Additional Past Medical History / Comment(s): Parkinson's disease, essential tremors, gastroparesis, nausea on and off for years, hyponatremia with 2ndary metabolic encephalopathy, renal insufficiency, MIRIAM-unable to tolerate device, bronchitis, chronic low back pain, migraines, constipation, RLS, past serotonin rigidity, anemia, R great toe infection. History of Any Multi-Drug Resistant Organisms: None Reported Past Surgical History: Cholecystectomy, Heart Catheterization, Tubal Ligation Additional Past Surgical History / Comment(s): EGD, colonoscopy, deviated septal surgery, bilateral cataract removals. Past Anesthesia/Blood Transfusion Reactions: No Reported Reaction Past Psychological History: Anxiety, Depression, Panic Disorder Smoking Status: Former smoker Past Alcohol Use History: None Reported Past Drug Use History: None Reported - Past Family History Mother Additional Family Medical History / Comment(s): during rh incompatibility Father Family Medical History: CVA/TIA General Exam Limitations: physical limitation (Patient speaking softly due to current laryngitis diagnosis) General appearance: alert, in no apparent distress Head exam: Present: normocephalic. Absent: atraumatic Eye exam: Present: normal appearance, PERRL, EOMI, periorbital tenderness (Positive scabbed laceration to right periocular aspect with localized tenderness and ecchymosis, negative crepitus, deformity). Absent: scleral icterus, conjunctival injection, periorbital swelling Pupils: Present: normal accommodation ENT exam: Present: mucous membranes dry, TM's normal bilaterally (Negative hem otympanum) Neck exam: Present: normal inspection, tenderness (Positive cervical spine tenderness without crepitus or step-off). Absent: meningismus, lymphadenopathy Respiratory exam: Present: normal lung sounds bilaterally, chest wall tenderness (Positive sternal and bilateral rib tenderness without crepitus). Absent: respiratory distress, wheezes, rales, rhonchi, stridor Cardiovascular Exam: Present: regular rate, normal rhythm, normal heart sounds. Absent: systolic murmur, diastolic murmur, rubs, gallop, clicks GI/Abdominal exam: Present: soft, normal bowel sounds. Absent: distended, ten derness, guarding, rebound, rigid Extremities exam: Present: tenderness (Positive bilateral hip tenderness without instability. Positive left femur, knee, tib-fib tenderness without obvious crepitus or deformity), normal capillary refill. Absent: pedal edema, joint swelling, calf tenderness Back exam: Present: tenderness, vertebral tenderness (Extensive vertebral tenderness throughout without obvious crepitus or step-off) Neurological exam: Present: alert, oriented X3, CN II-XII intact Psychiatric exam: Present: normal affect, normal mood Skin exam: Present: warm, dry, intact, normal color. Absent: rash Course Vital Signs 12/03/24 12/03/24 20:29 23:03 Temperature 98.4 F Pulse Rate 55 L 56 L Respiratory 17 16 Rate Blood Pressure 161/94 165/72 O2 Sat by Pulse 98 96 Oximetry Medical Decision Making - Medical Decision Making Was pt. sent in by a medical professional or institution ([facility], WHEELCHAIR DRIVER, urgent care, hospital, or senior living...) When possible be specific @ -[No] Did you speak to anyone other than the patient for history (EMS, parent, family, police, friend...)? What history was obtained from this source @ -[No] Did you review nursing and triage notes (agree or disagree)? Why? @ -[I reviewed and agree with nursing and triage notes] Were old charts reviewed (outside hosp., previous admission, EMS record, old EKG, old radiological studies, urgent care reports/EKG's, senior living records)? Report findings @ -[No old charts were reviewed] Differential Diagnosis (chest pain, altered mental status, abdominal pain women, abdominal pain men, vaginal bleeding, weakness, fever, dyspnea, syncope, headache, dizziness, GI bleed, back pain, seizure, CVA, palpatations, mental health, musculoskeletal)? @ -Differential Back Pain: Strain, zoster, cauda equina syndrome, epidural abscess, vertebral osteomyelitis, discitis, fracture, subluxation, disc herniation, DJD, spinal stenosis, dissection, AAA, pancreatitis, peptic ulcer disease, pyelonephritis, kidney stone, this is not meant to be an all-inclusive list. EKG interpreted by me (3pts min.). @ -Not done X-rays interpreted by me (1pt min.). @ -[None done] CT interpreted by me (1pt min.). @ -[None done] U/S interpreted by me (1pt. min.). @ -[None done] What testing was considered but not performed or refused? (CT, X-rays, U/S, labs)? Why? @ -[None] What meds were considered but not given or refused? Why? @ -[None] Did you discuss the management of the patient with other professionals (professionals i.e. , PA, WHEELCHAIR DRIVER, lab, RT, psych nurse, social media strategist, admitted attorneys, teacher, conservation science officer, case assistant)? Give summary @ -[No] Was smoking cessation discussed for >3mins.? @ -[No] Was critical care preformed (if so, how long)? @ -[No] Were there social determinants of health that impacted care today? How? (Homelessness, low income, unemployed, alcoholism, drug addiction, transportation, low edu. Level, literacy, decrease access to med. care, shelter, rehab)? @ -[No] Was there de-escalation of care discussed even if they declined (Discuss DNR or withdrawal of care, Hospice)? DNR status @ -[No] What co-morbidities impacted this encounter? (DM, HTN, Smoking, COPD, CAD, Cancer, CVA, ARF, Chemo, Hep., AIDS, mental health diagnosis, sleep apnea, morbid obesity)? @ -[None] Was patient admitted / discharged? Hospital course, mention meds given and route, prescriptions, significant lab abnormalities, going to OR and other pertinent info. @ -[hospital course] Undiagnosed new problem with uncertain prognosis? @ -T11 compression fracture Drug Therapy requiring intensive monitoring for toxicity (Heparin, Nitro, Insulin, Cardizem)? @ -[No] Were any procedures done? @ -[No] Diagnosis/symptom? @ -T11 compression fracture, fall with head contusion, thrush Acute, or Chronic, or Acute on Chronic? @ -Acute Uncomplicated (without systemic symptoms) or Complicated (systemic symptoms)? @ -Uncomplicated Side effects of treatment? @ -[No] Exacerbation, Progression, or Severe Exacerbation? @ -[No] Poses a threat to life or bodily function? How? (Chest pain, USA, IA, pneumonia, PE, COPD, DKA, ARF, appy, cholecystitis, CVA, Diverticulitis, Homicidal, Suicidal, threat to staff... and all critical care pts) @ -Compression fracture may affect ambulation, supine sitting and quality of life - Lab Data Result diagrams: 12/03/24 21:29 12/03/24 21:29 Lab Results 12/03/24 12/03/24 12/03/24 Range/Units 21:29 21:29 21:29 WBC 8.2 (3.8-10.6) k/uL RBC 3.83 (3.80-5.40) m/uL Hgb 11.6 (11.4-16.0) gm/dL Hct 36.1 (34.0-46.0) % MCV 94.1 (80.0-100.0) fL MCH 30.2 (25.0-35.0) pg MCHC 32.1 (31.0-37.0) g/dL RDW 14.7 (11.5-15.5) % Plt Count 308 (150-450) k/uL MPV 7.0 Neutrophils % 66 % Lymphocytes % 22 % Monocytes % 7 % Eosinophils % 3 % Basophils % 0 % Neutrophils # 5.4 (1.3-7.7) k/uL Lymphocytes # 1.8 (1.0-4.8) k/uL Monocytes # 0.6 (0-1.0) k/uL Eosinophils # 0.2 (0-0.7) k/uL Basophils # 0.0 (0-0.2) k/uL PT 11.7 (10.0-12.5) sec INR 1.1 (<1.2) APTT 24.7 (22.0-30.0) sec Sodium 139 (137-145) mmol/L Potassium 4.2 (3.5-5.1) mmol/L Chloride 100 (98-107) mmol/L Carbon Dioxide 30 (22-30) mmol/L Anion Gap 9 mmol/L BUN 25 H (7-17) mg/dL Creatinine 1.06 H (0.52-1.04) mg/dL Est GFR (CKD-EPI)AfAm 58 (>60 ml/min/1.73 sqM) Est GFR (CKD-EPI)NonAf 50 (>60 ml/min/1.73 sqM) Glucose 100 H (74-99) mg/dL Calcium 9.2 (8.4-10.2) mg/dL Total Bilirubin 0.6 (0.2-1.3) mg/dL AST 24 (14-36) U/L ALT <6 (4-34) U/L Alkaline Phosphatase 82 (38-126) U/L Total Protein 6.9 (6.3-8.2) g/dL Albumin 3.7 (3.5-5.0) g/dL Disposition Clinical Impression: Fall, Contusion of head, Thrush, Compression fx, thoracic spine Disposition: HOME SELF-CARE Condition: Good Instructions (If sedation given, give patient instructions): Fall Prevention for Older Adults (ED) Prescriptions: Nystatin [Nystatin Oral Susp] 5 unit PO BID #120 ml Is patient prescribed a controlled substance at d/c from ED?: No Referrals: Chacho Rai MD [Primary Care Provider] - 1-2 days Shady Alaniz MD [STAFF PHYSICIAN] - 1-2 days Brandon Cook DO [Doctor of Osteopathic Medicine] - 1-2 days Time of Disposition: 22:53
[2024-12-03 22:16] LABS: ALT <6 U/L (4-34); AST 24 U/L (14-36); African American GFR (CKD) 58 (>60 ml/min/1.73 sqM); Albumin 3.7 g/dL (3.5-5.0); Alkaline Phosphatase 82 U/L (38-126); Anion Gap 9 mmol/L; Blood Urea Nitrogen 25 mg/dL (7-17); Calcium 9.2 mg/dL (8.4-10.2); Carbon Dioxide 30 mmol/L (22-30); Chloride 100 mmol/L (98-107); Glucose 100 mg/dL (74-99); Non-African American GFR(CKD) 50 (>60 ml/min/1.73 sqM); Potassium 4.2 mmol/L (3.5-5.1); Sodium 139 mmol/L (137-145); Total Bilirubin 0.6 mg/dL (0.2-1.3); Total Protein 6.9 g/dL (6.3-8.2)
--- NOTE | 2024-12-03 22:18 | CT ---
EXAMINATION TYPE: CT brain cspine wo con, CT facial bones wo con DATE OF EXAM: 12/03/2024 COMPARISON: Prior trauma CT HISTORY: Fall out of bed, unknown loss of consciousness, neck pain Automated Exposure Control for Dose Reduction was Utilized. TECHNIQUE: CT scan of the head, facial bones, and cervical spine are performed without contrast. FINDINGS: There is no acute intracranial hemorrhage or midline shift identified. Mild to moderate v entricular and sulcal prominence is redemonstrated. Mild low-attenuation in the periventricular white matter redemonstrated. Hyperostosis is seen. The calvarium is intact. The mandible is intact. Temporomandibular joints are maintained bilaterally. Zygomatic arches are int act. Nasal bones are intact. Orbital floors and rao are intact. Bilateral aphakia is redemonstrated . Intraconal fat is preserved bilaterally. The pterygoid plates are intact. Moderate mucosal thickeni ng in the left maxillary sinus is now present. Small soft tissue hematoma region of right zygoma is n oted axial image 52. Cervical spine is visualized in its entirety from C1 through upper thoracic levels and redemonstrates a dextroconvex scoliosis centered in the thoracic spine without evidence of acute fracture or disloc ation. Prevertebral soft tissue appears within normal limits. The C1-C2 articulation is within norm al limits on the coronal images. Vertebral body heights are maintained. Moderate multilevel spurring and disc space narrowing C4-C5 through C7-T1 levels. Multilevel posterior spur disc complexes effaci ng the anterior thecal sac most prominent at C6-C7 level similar to prior. Also uncovertebral facet d egenerative changes are present bilaterally. There are bilateral hypodense and calcified thyroid nodu les. Correlate clinically. Thyroid ultrasound is advised to further evaluate if this is not known fin [place]. Lung bases are clear without pneumothorax. IMPRESSION: 1. There is no acute fracture or dislocation evident in the cervical spine. 2. No acute intracranial hemorrhage or midline shift is seen. 3. No acute displaced facial bone fracture. Small acute soft tissue hematoma right zygoma level. [facility], , 12/03/2024 10:15 PM
--- NOTE | 2024-12-03 22:24 | CT ---
EXAMINATION TYPE: CT thor lumbar spine wo con DATE OF EXAM: 12/03/2024 COMPARISON: None. CLINICAL INDICATION: Female, 79 years old with history of Fall out of bed, unknown loss of consciousn ess; PHH, Fall out of bed, unknown loss of consciousness Automated exposure control for dose reduction was used. FINDINGS: There is S-shaped scoliosis. Osseous structures are demineralized. There are 6 lumbar type vertebra. There is severe fracture of the T11 vertebra with approximately 90% height loss. This fracture is mor e prominent versus lumbar sacral x-ray December 24, 2023 with lucency anteriorly and centrally. No sig nificant posterior retropulsion at this level is seen. There is hemangioma at the T8 vertebral body l evel. There is mild height loss or compression fracture at T9 level. No linear lucency at this level. There is grade 1 retrolisthesis L1 on L2 and L2 on L3. There is grade 1 anterolisthesis of L5 on L6. There is multilevel vacuum disc phenomenon in the thoracolumbar spine. There is multilevel disc spac e narrowing in the lumbar spine. There are a few simple appearing cortical cysts scattered throughout both kidneys. The gallbladder is surgically absent. A few distal colonic diverticula are seen. IMPRESSION: POSSIBLE ACUTE OR SUBACUTE SEVERE COMMINUTED COMPRESSION TYPE FRACTURE AT THE T11 LEVEL DETAILED A JACOBO, CORRELATE CLINICALLY AND WITH POINT TENDERNESS AT THIS LEVEL ADVISED. [facility], , 12/03/2024 10:22 PM
--- NOTE | 2024-12-03 22:26 | XR ---
EXAMINATION TYPE: XR femur LT, XR tibia fibula LT, XR knee limited LT DATE OF EXAM: 12/03/2024 CLINICAL HISTORY: Fall injury with pain TECHNIQUE: Two views of the left femur, knee, and leg are obtained. COMPARISON: None. FINDINGS: No acute displaced fracture in the left femur. Mild to moderate narrowing and acetabular sp urring in the left hip joint is seen. No acute displaced fracture in the left knee. Mild to moderate tricompartment degenerative changes present. There is no acute fracture or dislocation seen in the le ft tibia or fibula. Moderate diffuse subcutaneous edema below the left knee joint of the left leg is present. IMPRESSION: There is no acute fracture or dislocation seen in the left femur, knee, or leg. [facility], Workstation: [email or web address], 12/03/2024 10:24 PM
--- NOTE | 2024-12-03 22:27 | XR ---
EXAMINATION TYPE: XR Hip Complete RT DATE OF EXAM: 12/03/2024 CLINICAL HISTORY: Fall injury with pain TECHNIQUE: AP and frogleg views of the right hip are obtained. COMPARISON: None. FINDINGS: There is no acute fracture/dislocation evident in the right hip. Mild to moderate narrowin g and acetabular spurring in the right hip joint is seen. The overlying soft tissue appears unremark able. IMPRESSION: There is no acute fracture or dislocation in the right hip. [facility], , 12/03/2024 10:25 PM
--- NOTE | 2024-12-03 22:30 | XR ---
EXAMINATION TYPE: XR ribs bilat w pa chest xray DATE OF EXAM: 12/03/2024 CLINICAL HISTORY: Falling injury with pain. TECHNIQUE: Single frontal view of the chest is obtained. A frontal and oblique images of the bilatera l ribs. COMPARISON: Body CT February 17, 2023 FINDINGS: Slightly suboptimal due to patient's body habitus. There is no focal air space opacity, pl eural effusion, or pneumothorax seen. Cardiomegaly is redemonstrated. Scoliosis is again seen. Dedicated images of the bilateral ribs show no acute displaced fracture bilaterally. Overlying soft t issue is unremarkable. IMPRESSION: No acute cardiopulmonary process. No acute displaced rib fracture bilaterally. [facility], , 12/03/2024 10:28 PM
[2024-12-03] MEDS: DIPH,PERTUS(ACELL)TETVAC-LF 0.5 ML VIAL IM ONE (23:01)
[2024-12-03 23:04] VITALS: BP 165/72; PULSE 56; RESP 16
== END 2024-12-04 00:48 | disposition home or self-care (01) ==
LOC: EC 20:17
DX: S22.080A Wedge compression fracture of T11-T12 vertebra, initial encounter for closed fracture (principal); S01.111A Laceration without foreign body of right eyelid and periocular area, initial encounter; B37.9 Candidiasis, unspecified; M54.2 Cervicalgia; M25.551 Pain in right hip; M25.552 Pain in left hip; M25.562 Pain in left knee; M79.662 Pain in left lower leg; M79.652 Pain in left thigh; Z23 Encounter for immunization; Z88.5 Allergy status to narcotic agent; Z87.891 Personal history of nicotine dependence; W06.XXXA Fall from bed, initial encounter; Y92.129 Unspecified place in nursing home as the place of occurrence of the external cause
CPT/HCPCS: 36415; 70450; 70486; 71111; 72125; 72128; 72131; 73502; 80053; 85025; 85610; 85730; 90471; 90715; 99284

== ENCOUNTER 2025-02-09 09:29 | Emergency (ER) | payer MEDICARE, BC ==
--- NOTE | 2025-02-09 09:39 | ED ---
General Adult HPI - General Stated complaint: Abn labs Time Seen by Provider: 02/09/25 09:31 Source: patient, EMS, RN notes reviewed, old records reviewed Mode of arrival: EMS Limitations: no limitations - History of Present Illness Initial comments: Patient is an 79-year-old female present to the emergency department with concerns for cough. Patient did have a bad cough for several days. Patient states is actually starting to improve. Patient had laboratory work done and resulted yesterday with elevated D-dimer. Patient sent to the emergency department. Patient states her symptoms have actually resolved and is feeling quite well at this time. No chest pain. - Related Data Home Medications Medication Instructions Recorded Confirmed Carbidopa-Levodopa 25-100 mg 2 tab PO TID@0800,1200,1700 05/16/20 07/11/20 [Sinemet 25-100 mg] atenoloL 25 mg PO DAILY@0800 05/16/20 07/11/20 ondansetron HCL [Zofran] 4 mg PO Q6H PRN 05/16/20 07/11/20 amantadine HCL [Symmetrel] 100 mg PO BID@0800,1700 05/30/20 07/11/20 Omeprazole [PriLOSEC] 20 mg PO DAILY 07/11/20 07/11/20 QUEtiapine [SEROquel] 25 mg PO DAILY 07/11/20 07/11/20 Previous Rx's Medication Instructions Recorded Acetaminophen Tab [Tylenol] 500 mg PO Q6HR PRN tab 05/21/20 QUEtiapine [SEROquel] 50 mg PO HS tab 06/04/20 Folic Acid 1 mg PO DAILY@1200 tab 07/12/20 Multivitamins, Thera [Multivitamin 1 each PO DAILY@1200 tab 07/12/20 (formulary)] Thiamine [Vitamin B-1] 100 mg PO DAILY@1200 tab 07/12/20 clonazePAM 0.25 mg PO BID PRN #60 tab 07/12/20 rOPINIRole HCL [Requip] 2 mg PO TID@0800,1200,1700 #90 tab 07/12/20 Nystatin [Nystatin Oral Susp] 5 unit PO BID #120 ml 12/03/24 Allergies Allergy/AdvReac Type Severity Reaction Status Date / Time oxycodone AdvReac Rapid Verified 12/03/24 20:37 Heart Rate Review of Systems ROS Statement: Those systems with pertinent positive or pertinent negative responses have been documented in the HPI. ROS Other: All systems not noted in ROS Statement are negative. Constitutional: Denies: fever Eyes: Denies: eye pain Respiratory: Reports: as per HPI, cough Cardiovascular: Denies: chest pain Musculoskeletal: Denies: back pain Past Medical History Past Medical History: Asthma, GERD/Reflux, Hypertension, Neurologic Disorder, Pneumonia, Renal Disease, Skin Disorder, Sleep Apnea/CPAP/BIPAP Additional Past Medical History / Comment(s): Parkinson's disease, essential t remors, gastroparesis, nausea on and off for years, hyponatremia with 2ndary metabolic encephalopathy, renal insufficiency, MIRIAM-unable to tolerate device, bronchitis, chronic low back pain, migraines, constipation, RLS, past serotonin rigidity, anemia, R great toe infection. History of Any Multi-Drug Resistant Organisms: None Reported Past Surgical History: Cholecystectomy, Heart Catheterization, Tubal Ligation Additional Past Surgical History / Comment(s): EGD, colonoscopy, deviated septal surgery, bilateral cataract removals. Past Anesthesia/Blood Transfusion Reactions: No Reported Reaction Past Psychological History: Anxiety, Depression, Panic Disorder Smoking Status: Former smoker Past Alcohol Use History: None Reported Past Drug Use History: None Reported - Past Family History Mother Additional Family Medical History / Comment(s): during rh incompatibility Father Family Medical History: CVA/TIA General Exam Limitations: no limitations General appearance: alert, in no apparent distress Head exam: Present: normocephalic Eye exam: Present: normal appearance Neck exam: Present: normal inspection Respiratory exam: Present: normal lung sounds bilaterally. Absent: respiratory distress, wheezes Cardiovascular Exam: Present: regular rate, normal rhythm GI/Abdominal exam: Present: soft. Absent: tenderness Extremities exam: Present: normal inspection. Absent: pedal edema, calf tenderness Neurological exam: Present: alert Psychiatric exam: Present: normal affect, normal mood Skin exam: Present: other (Ecchymosis right cheek region which patient states was from a fall a week ago.) Course Vital Signs 02/09/25 02/09/25 09:30 09:41 Temperature 98.3 F Pulse Rate 62 Respiratory 18 18 Rate Blood Pressure 136/107 O2 Sat by Pulse 93 L Oximetry Medical Decision Making - Medical Decision Making Was pt. sent in by a medical professional or institution ([facility], ONCOLOGY TRANSPLANT NETWORK MANAGER, urgent care, hospital, or [facility]...) When possible be specific @ -Patient was sent from nursing facility Did you speak to anyone other than the patient for history (EMS, parent, family, police, friend...)? What history was obtained from this source @ -EMS helps provide history that they obtained and transportation history Did you review nursing and triage notes (agree or disagree)? Why? @ -Chart reviewed from nursing facility Were old charts reviewed (outside hosp., previous admission, EMS record, old EKG, old radiological studies, urgent care reports/EKG's, [facility] records)? Report findings @ -No old charts were reviewed Differential Diagnosis (chest pain, altered mental status, abdominal pain women, abdominal pain men, vaginal bleeding, weakness, fever, dyspnea, syncope, headache, dizziness, GI bleed, back pain, seizure, CVA, palpatations, mental health, musculoskeletal)? @ -Differential Dyspnea: Coronary syndrome, arrhythmia, tamponade, asthma, COPD, pulmonary embolism, pneumonia, pneumothorax, pulmonary effusion, anaphylaxis, diabetic ketoacidosis, flailed chest, pulmonary contusion, diaphragmatic rupture, anemia, neuromuscular, this is not meant to be an all-inclusive list. EKG interpreted by me (3pts min.). @ -As above X-rays interpreted by me (1pt min.). @ -None done CT interpreted by me (1pt min.). @ -CT scan of the chest without acute abnormality U/S interpreted by me (1pt. min.). @ -None done What testing was considered but not performed or refused? (CT, X-rays, U/S, labs)? Why? @ -None What meds were considered but not given or refused? Why? @ -None Did you discuss the management of the patient with other professionals (professionals i.e. [facility], ONCOLOGY TRANSPLANT NETWORK MANAGER, lab, RT, psych nurse, outreach and education social worker, plumbing and heating contractor, teacher, ict help desk officer, comp field case manager)? Give summary @ -No Was smoking cessation discussed for >3mins.? @ -No Was critical care preformed (if so, how long)? @ -No Were there social determinants of health that impacted care today? How? (Homelessness, low income, unemployed, alcoholism, drug addiction, transportation, low edu. Level, literacy, decrease access to med. care, penitentiary, rehab)? @ -No Was there de-escalation of care discussed even if they declined (Discuss DNR or withdrawal of care, Hospice)? DNR status @ -No What co-morbidities impacted this encounter? (DM, HTN, Smoking, COPD, CAD, Cancer, CVA, ARF, Chemo, Hep., AIDS, mental health diagnosis, sleep apnea, morbid obesity)? @ -Recent positive D-dimer Was patient admitted / discharged? Hospital course, mention meds given and route, prescriptions, significant lab abnormalities, going to OR and other pertinent info. @ -Patient presents with recent upper respiratory symptoms, now resolved. D- dimer was elevated and therefore CT scan was ordered that does not show any evidence of pulmonary embolism. Patient will be discharged back to nursing facility. Patient reevaluated and updated. Undiagnosed new problem with uncertain prognosis? @ -No Drug Therapy requiring intensive monitoring for toxicity (Heparin, Nitro, Insulin, Cardizem)? @ -No Were any procedures done? @ -No Diagnosis/symptom? @ -Upper respiratory infection Acute, or Chronic, or Acute on Chronic? @ -Acute Uncomplicated (without systemic symptoms) or Complicated (systemic symptoms)? @ -Default Side effects of treatment? @ -No Exacerbation, Progression, or Severe Exacerbation? @ -No Poses a threat to life or bodily function? How? (Chest pain, [place], [place], pneumonia, PE, COPD, DKA, ARF, appy, cholecystitis, CVA, Diverticulitis, Homicidal, Suicidal, threat to staff... and all critical care pts) @ -No Disposition Clinical Impression: Upper respiratory disease Disposition: HOME SELF-CARE Instructions (If sedation given, give patient instructions): Upper Respiratory Infection (ED) Additional Instructions: Please do follow-up with primary care physician in the next day or 2 for recheck. Return for difficulty breathing, fevers, worsening or changing symptoms or any other concerns. Is patient prescribed a controlled substance at d/c from ED?: No Referrals: Chacho Rai MD [Primary Care Provider] - 1-2 days Time of Disposition: 11:38
[2025-02-09 09:41] VITALS: TEMP 98.3
--- NOTE | 2025-02-09 10:56 | CT ---
EXAMINATION TYPE: CT angio chest DATE OF EXAM: 02/09/2025 10:51 AM COMPARISON: None. CLINICAL INDICATION: Female, 79 years old with history of cough, ddimer, , TECHNIQUE: Axial CT was performed with sagittal and coronal reformats. 3D reconstruction and/or MIP imaging was also performed on a separate workstation. IV CONTRAST: , patient injected with mL of . (None if empty) CT DLP: mGycm, Automated exposure control for dose reduction was used. FINDINGS: PULMONARY ARTERIES: The pulmonary arteries and their major tributaries are patent. I do not see sruthi dence for sizable filling defect to suggest pulmonary embolic process. LUNGS: The lungs are clear and free of infiltrate. No basilar linear atelectasis mild in degree. No p ulmonary nodule or mass is detected. No pleural effusion. MEDIASTINUM: Thoracic aorta is of normal caliber,however, evaluation is limited given timing of the contrast bolus. If there is concern for thoracic aortic pathology consider TIMOTHY. Correlate clinicall y. No evidence for mediastinal mass. No mediastinal lymph nodes greater than 1cm. HEART: Size within normal limits. No significant coronary artery calcifications. HILAR STRUCTURES: No evidence for mass. No hilar lymph nodes greater than 1 cm. UPPER ABDOMEN: No significant abnormality is seen. IMPRESSION: 1. No evidence for Pulmonary embolism at this time. [facility], , 02/09/2025 10:54 AM
[2025-02-09 12:31] VITALS: BP 175/92; PULSE 81; RESP 16
== END 2025-02-09 12:37 | disposition home or self-care (01) ==
LOC: EC 09:29
DX: J39.9 Disease of upper respiratory tract, unspecified (principal); Z87.891 Personal history of nicotine dependence; Z88.5 Allergy status to narcotic agent
CPT/HCPCS: 71275; 99284; Q9967